=== PATIENT | male | born 1950 | race Caucasian/White ===

== ENCOUNTER 2020-01-06 15:08 | Inpatient (IN) | payer OTHER, MEDICARE, SELFPAY ==
[2019-04-03 10:18] VITALS: BMI 29.9
[2020-01-06 15:09] VITALS: BP 150/93; PULSE 67; RESP 16; TEMP 36.1; O2SAT 97; BMI 30.2
--- NOTE | 2020-01-06 15:33 | CT_ITS ---
STUDY: CT ABDOMEN AND PELVIS WITHOUT CONTRAST REASON FOR EXAM: Male, 69 years old. PAIN THAT STARTED THIS AM, HTN, DB, CAD, HEART CATH RADIATION DOSAGE (If Supplied By Facility): CTDIvol = ( 12.51 ) mGy, DLP = ( 668.76 ) mGycm TECHNIQUE: Transaxial images were obtained from the dome of the diaphragm to the symphysis pubis without oral contrast, and without intravenous contrast. Sagittal and coronal images were reconstructed. Individualized dose optimization techniques were used for this CT. COMPARISON: 07/08/2012. FINDINGS: The visualized lung bases are unremarkable. The visualized portions of the heart are within normal limits. There is decreased attenuation of the liver consistent with steatosis. Normal gallbladder and extrahepatic biliary system. Normal spleen. Normal pancreas. Normal bilateral adrenal glands. Normal right kidney. Normal left kidney. No definite renal or ureteral stones are seen. There is no hydronephrosis on either side. Evaluation of the GI tract is limited because oral contrast was not given. Stomach wall thickening is not excluded. Widespread abnormal loops of small bowel including dilated loops of small bowel primarily involving the ileum and terminal ileum. Widespread small bowel feces, especially in the distal small bowel. This is a nonspecific finding suggests stasis and can be seen in severe ileus or obstruction. Normal caliber large bowel also with moderate diffuse fecal retention. Normal appendix. Normal abdominal aorta. Normal inferior vena cava. Normal retroperitoneum. Normal urinary bladder. There is enlargement of the prostate gland. Normal abdominal wall. There are diffuse degenerative changes of the visualized lumbar spine. CT/Abdomen/Pelvis without Cont IMPRESSION: Abnormal appearance of the small bowel most suggestive of severe ileus or even obstruction. Note that the exam is limited by the absence of oral contrast. No other significant findings. Electronically Signed: Jatinder Hercules MD at 16:28 EST , Service support ,
[2020-01-06] MEDS: Dicyclomine 10 MG Capsule 20 MG PO (15:39)
[2020-01-06 15:53] LABS: Absolute Lymphocyte Count 1.28 X10^3/uL (0.83-4.51); Absolute Neutrophil Count 7.2 X10^3/uL (2.0-7.7); Basophil# 0.01 X10^3/uL; Basophil% 0.1 % (0-1); Eosinophil# 0.01 X10^3/uL; Eosinophils% 0.1 % (0-5); Hematocrit 51.6 % (40-54); Hemoglobin 17.8 g/dL (13.0-16.5); Lymphocyte # 1.28 X10^3/ul (4.0); Lymphocyte % 14.4 % (19-41); Mean Corp Hgb Conc 34.5 g/dL (32-36); Mean Corpuscular Hgb 30.5 pg (27.0-32.0); Mean Corpuscular Volume 88.5 fL (80-94); Mean Platelet Vol. 9.7 fl (6.2-12.0); Monocyte# 0.36 X10^3/uL; Monocyte% 4.1 % (0-10); NRBC Flagged by Analyzer 0 % (0-5); Neutrophil # 7.16 X10^3/uL (2.7-7.7); Neutrophil % 80.8 % (47-70); Platelet Count 155 K/mm3 (150-450); RBC Distribution Width CV 13.1 % (11.6-14.6); RBC Distribution Width SD 42.4 fl (35.1-43.9); Red Blood Count 5.83 M/mm3 (4.6-6.2); White Blood Count 8.9 K/mm3 (4.4-11.0)
--- NOTE | 2020-01-06 15:56 | ED.VIS.GI ---
History of Present Illness Chief Complaint: Abd Pain Narrative: Patient presenting for evaluation secondary to abdominal pain. Patient reports that this morning he woke up and was noting that he was having some generalized abdominal pain. This is a continuous aching type pain that has no exacerbating relieving factors. Patient states that it is not been associated with any sort of fevers nausea vomiting or diarrhea. He reports that initially he thought that it was just a standard stomachache, but it seemed to be something more than that so he presented to the emergency department for further evaluation. Patient denies any prior history of abdominal surgeries. He denies any constipation associated with this. Review of systems otherwise negative. Past Medical History - Allergies and Home Meds Allergies/Adverse Reactions: Allergies fenofibrate [From Tricor] Adverse Reaction (Severe, Verified 01/06/20 15:09) Facial numbness thioridazine [From Mellaril] Adverse Reaction (Severe, Verified 01/06/20 15:09) Tongue swelling Primary Care Physician: [place], [place] [Primary Care Provider] - Past Medical History: - - Hypertension, hyperlipidemia, diabetes, coronary artery disease Smoking Status: Never smoker Review of Systems All systems negative except as indicated General: Denies: Chills, Fever, Sweats Eyes: Denies: Visual changes - bilaterally, Diplopia ENT: Denies: Rhinorrhea, Sore throat Cardiovascular: Denies: Chest pain, Palpitations Respiratory: Denies: Dyspnea, Cough, Dyspnea on exertion Gastrointestinal: Reports: Abdominal pain Genitourinary: Denies: Dysuria, Hematuria, Frequency Musculoskeletal: Denies: Back pain, Extremity Pain Skin: Denies: Rash, Wounds Neurological: Denies: Headache, Weakness, Numbness Physical Exam Vital Signs/Narrative: Vital Signs Temp Pulse Resp BP Pulse Ox 01/06/20 15:09 96.9 F L 67 16 150/93 H 97 Inital Vital Signs reviewed: Yes General: Well nourished, Well developed, No Acute Distress Head: Normocephalic, Atraumatic Eyes: Perrl, EOMI ENT: Moist mucous membranes, No rhinorrhea Neck: Supple, Nontender Cardiovascular: Regular rate, Regular rhythm, No murmurs Respiratory: No distress, CTA bilaterally, Chest nontender Abdomen: Soft, Tender - Diffuse nonlocalizing no guarding or rebound Back: Nontender, Normal Inspection Extremities: Nontender, No edema Skin: Normal color, No rash Neurological: Alert, Oriented x3, Cranial nerves II-XII grossly intact, Normal Strength, Normal Sensation Psychological: Normal affect, Normal Mood Diagnostic/Tx/Re-eval - Medical Decision Making Patient presented secondary to some nonlocalizing abdominal pain. Laboratory studies demonstrated some hemoconcentration with a hemoglobin of 17. CT abdomen and pelvis was performed which showed evidence of ileus versus early small bowel obstruction. Given the patient's age, I believe that he warrants admission for observation. Patient will be admitted under the hospitalist. ED Disposition - Plan for ED Patient: Disposition: Acute Care Hospital [facility] Diagnosis: Ileus [facility]errals: [facility] [Primary Care Provider] -
[2020-01-06 16:14] LABS: ALB/GLOB Ratio 1.1 RATIO (0.9-2.4); AST(SGOT) 24 U/L (15-37); Alanine Aminotransfer ALT/SGPT 60 U/L (16-61); Alkaline Phosphatase 117 U/L (45-117); Anion Gap 9 (5-15); BUN 20 mg/dL (7-18); BUN/Creat Ratio 14.1 RATIO (10-20); Calcium,Total 9.7 mg/dL (8.5-10.1); Chloride 102 mmol/L (98-107); Creatinine, Serum 1.42 mg/dL (0.70-1.30); EST Glomerular Filtration Rate 52 mL/min (>60); Est Glom Filt Rate - Afr Amer 63 mL/min (>60); Estimated Creatinine Clearance 51.56 ml/min; Globulin 3.8 g/dL (2.2-4.2); Glucose 213 mg/dL (74-106); Lipase 50 U/L (73-393); Potassium 5.6 mmol/L (3.5-5.1); Protein, Total 7.8 g/dL (6.4-8.2); Sodium Level 136 mmol/L (136-145)
--- NOTE | 2020-01-06 17:07 | PCM.HP.STD ---
History of Present Illness Date of Admission: 01/06/20 Chief Complaint: abdominal pain The patient is a 69 year old M with a PMH as outlined. He was admitted through the ED on 01/06/2020 with a complaint of abdominal pain which started on day of admission. Pain was cramping, with nausea but no vomiting. He said he was not passing gas but had a bowel movement. Abdominal pain persisted so he decided to come into the ED. He denied any fever or chills, chest pain or palpitations or dizziness or diarrhea. Review of symptoms otherwise negative. He does have any history of intra-abdominal surgery and has never had any small bowel obstruction before. In the ED, vitals were unremarkable her blood pressure was 150/93 with temperature of 96.9. Chemistry showed potassium of 5.6 with creatinine of 1.42. Lipase was 50. CBC was essentially unremarkable. CT of the abdomen and pelvis showed abnormal appearance of the small bowel most suggestive of severe IV resolving obstruction and no other significant findings. He has been admitted to be managed for small bowel obstruction. [] Past Medical History Past Medical History (Chronic Problems): Chronic Problems (Last Reviewed 03/08/18 @ 10:27 by Bob Paulson MD) History of left heart catheterization (Chronic) 06/20/2005 with subsequent PTCA and STANISLAV @ [facility] : Dr. 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) I22.1 Diabetes mellitus (Chronic) E11.9 retirement use of drug (Chronic) Z79.899 Hyperlipidemia (Chronic) E78.5 Allergies fenofibrate [From Tricor] Adverse Reaction (Severe, Verified 01/06/20 15:09) Facial numbness thioridazine [From Mellaril] Adverse Reaction (Severe, Verified 01/06/20 15:09) Tongue swelling Home Medications: Ambulatory Orders Medication Instructions Recorded aspirin 81 mg tablet,delayed 81 mg PO DAILY tab 01/17/18 release atorvastatin 80 mg tablet 40 mg PO QHS 01/17/18 glipizide 10 mg tablet 10 mg PO BID 01/17/18 lisinopril 5 mg tablet 2.5 mg PO DAILY 01/17/18 donepezil 10 mg tablet 10 mg PO DAILY tab 03/05/18 Cholecalciferol (Vitamin D3) 2,000 unit PO DAILY 01/06/20 [Vitamin D3] Empagliflozin [Jardiance] 25 mg PO DAILY 01/06/20 Fluoxetine HCl [Prozac] 40 mg PO DAILY 01/06/20 Insulin Aspart Protam & Aspart 66 unit SQ DAILY@1700 01/06/20 [Novolog Mix 70-30 Vial] Insulin Aspart Protam & Aspart 100 unit SQ DAILY@0800 01/06/20 [Novolog Mix 70-30 Vial] Levothyroxine Sodium [Synthroid] 125 mcg PO DAILY 01/06/20 Melatonin/Pyridoxine HCl (B6) 1 tab PO QHS 01/06/20 [Melatonin 3 mg Tablet] Metoprolol Tartrate 50 mg PO BID 01/06/20 Multivitamin [Multiple Vitamins] 1 tab PO DAILY 01/06/20 Omeprazole 20 mg PO DAILY 01/06/20 Risperidone 2 mg PO QHS 01/06/20 Timolol 0.25% [Timoptic] 1 drp EACH EYE DAILY 01/06/20 Travoprost [Travatan Z] 1 drp EACH EYE QHS 01/06/20 hydrOXYzine pamoate capsule 25 mg PO QHS 01/06/20 [Vistaril pamoate capsule] metFORMIN HCl [Glucophage] 1,000 mg PO BIDCM 01/06/20 traZODone [Desyrel] 200 mg PO QHS 01/06/20 Surgical History: Surgical History (Last Reviewed 03/08/18 @ 10:27 by Bob Paulson MD) History of left heart catheterization (Chronic) Z98.890 06/20/2005 with subsequent PTCA and STANISLAV @ [facility] : Dr. Herrera History of percutaneous transluminal coronary angioplasty Z98.61 PTCA & stent placement in posterior descending branch of RCA, using STANISLAV Surgical History: - - vasectomy Psychiatric History: No pertinent psych hx Lives: Spouse/ Significant Other Smoking Status: Never smoker Alcohol: None Drugs: None - *Family History Maternal Family History: Family History (Last Reviewed 03/08/18 @ 10:27 by Bob Paulson MD) Mother Diabetes Brother CAD (coronary artery disease) Sudden cardiac Myocardial infarction Brother CAD (coronary artery disease) Father No problems noted. Other Family history of coronary artery disease Review of Systems Constitutional: Denies: Chills, Fever, Malaise, Weakness, Weight Change Eyes: Denies: Blurred vision HEENT: Denies: Head Aches, Sinus Congestion, Sinus Drainage Cardiovascular: Denies: Chest Pain, Palpitations Respiratory: Denies: Cough, Shortness of Breath, Shortness of breath at rest, Shortness of breath upon exertion, Sputum production Gastrointestinal: Reports: Abdominal Pain, Nausea. Denies: Diarrhea, Vomiting Genitourinary: Denies: Dysuria Musculoskeletal: Denies: Joint Pain, Joint Tenderness Skin: Denies: Rash, Wounds Neurological: Denies: Numbness, Tingling, Focal weakness Psychiatric: Denies: Anxiety, Depression, Homicidal Ideations, Suicidal Ideations Hematologic/ Lymphatic: Denies: Easy Bruising, Easy Bleeding VTE Information - Inpt Only VTE Present on Admission: No VTE Pharm Prophylaxis ordered?: Yes Patient Problems: Active and Suspected Problems (Last Reviewed 03/08/18 @ 10:27 by Bob Paulson MD) Ileus (Acute) - Physical Exam Vitals/I&O's: Vital Signs Temp Pulse Resp BP Pulse Ox 96.9 F L 67 16 150/93 H 97 01/06/20 15:09 01/06/20 15:09 01/06/20 15:09 01/06/20 15:09 01/06/20 15:09 Weight: 216 lb 12.8 oz Body Mass Index (BMI) 30.2 General: Alert, Oriented x3, Cooperative, No apparent distress HEENT: Atraumatic, PERRLA, EOMI, Normocephalic Oral: Moist Mucosa Neck: Supple, No JVD, Negative Carotid Bruits Lungs: Clear to auscultation, Normal air movement, No rhonchi, No wheeze, No rales Cardiovascular: Regular rate, Regular Rhythm, Normal S1, Normal S2, No murmurs Abdomen: Bowel Sounds Present, Soft, Non Tender, No Hepato-splenomegaly, - - mild abdominal distension Extremities: No clubbing, No cyanosis, No edema, Capillary Refill Less than 3 Seconds Skin: No rashes, No breakdown Musculoskeletal: No Tenderness to Palpation of Joints or Extremities Lymphatic: No Cervical, Supraclavicular, or Inguinal Adenopathy Neurological: Cranial nerves II-XII grossly intact, Neuro grossly intact, Motor Exam 5/5 strength throughout Psych/Mental Status: Normal Affect, Appropriate, Alert and oriented to time, place, person, mood and affect Laboratory Results 01/06/20 15:45: WBC 8.9, RBC 5.83, Hgb 17.8 H, Hct 51.6, MCV 88.5, MCH 30.5, MCHC 34.5, RDW Std Deviation 42.4, RDW Coeff of Indra 13.1, Plt Count 155, MPV 9.7, Immature Gran % (Auto) 0.500, Neut % (Auto) 80.8 H, Lymph % (Auto) 14.4 L, [place] % (Auto) 4.1, Eos % (Auto) 0.1, Baso % (Auto) 0.1, Absolute Neuts (auto) 7.2, Absolute Lymphs (auto) 1.28, Nucleated RBC % 0 01/06/20 15:45: Sodium 136, Potassium 5.6 H, Chloride 102, Carbon Dioxide 25.0, Anion Gap 9, BUN 20 H, Creatinine 1.42 H, Estim Creat Clear Calc 51.56, Est GFR (MDRD) Af Amer 63, Est GFR (MDRD) Non-Af 52 L, BUN/Creatinine Ratio 14.1, Glucose 213 H, Calcium 9.7, Total Bilirubin 0.70, AST 24, ALT 60, Alkaline Phosphatase 117, Total Protein 7.8, Albumin 4.0, Globulin 3.8, Albumin/Globulin Ratio 1.1, Lipase 50 L Diagnostic Data Abdomen/Pelvis CT 01/06/20 15:33 IMPRESSION: Abnormal appearance of the small bowel most suggestive of severe ileus or even obstruction. Note that the exam is limited by the absence of oral contrast. No other significant findings. Electronically Signed: Jatinder Hercules MD at 16:28 EST , Service support , Assessment/Plan All Active Problems (Last Reviewed 03/08/18 @ 10:27 by Bob Paulson MD) Ileus (Acute) Chest pain, precordial (Acute) Family history of coronary artery disease (Acute) 69-year-old male admitted with a complaint of abdominal pain. 1. Small bowel obstruction Etiology of small bowel obstruction is not clear as he has not had any intra-abdominal surgery before to make adhesions a possible cause. He is also not had any antecedent diarrhea or any infection. CT of the abdomen and pelvis showed abdominal Bradley of the small bowel suggestive of severe IBS or even obstruction but exam was limited by absence of oral contrast. He had a colonoscopy done at the [facility] a few years ago and states a few polyps were removed but he was told they were noncancerous. Admit to [facility] with telemetry. Keep n.p.o. for now. Patient is currently stable and asymptomatic so no NG tube will be passed now. Hydrate gently with IV fluid normal saline. Consult general surgery. 2. Hyperkalemia: Potassium is 5.6. Will give sodium Kayexalate. Lisinopril. 4. Type 2 diabetes mellitus: Hold empagliflozin and glipizide as well as insulin. Insulin sliding scale. Accu-Cheks AC at bedtime. 5. CAD s/p stents: On aspirin and statin. 6. Hypothyroidism: On Synthroid. VT prophylaxis: Lovenox CODE STATUS: Full code Patient and counseled extensively about different types of CODE STATUS including full code, DNR CCA and DNR CCA. Patient elects to be full code. Total [id number] time 16 minutes. Code Visit OBSV E&M: 31019 Initial observation care L3 Procedures: 42711 Advncd Care Plan 30 Min
[2020-01-06 17:47] VITALS: BP 148/88; PULSE 92; RESP 18; O2SAT 97
[2020-01-06 19:08] VITALS: BP 126/69; PULSE 75; RESP 16; TEMP 36.6; O2SAT 97; BMI 29.5
[2020-01-06 19:32] VITALS: PULSE 74
[2020-01-06 19:39] VITALS: BMI 29.6
[2020-01-06 19:41] LABS: Bedside Glucose 205 mg/dL (70-110)
[2020-01-06] MEDS: 0.9% Normal Saline 1,000 ML 125 ML IV (20:07)
[2020-01-06] MEDS: Insulin Lispro 100 UNIT/ML INSULN.PEN SC ×2 (20:07→23:27)
[2020-01-06] MEDS: Sodium Polystyrene Sulfonate 15 GM/60 ML UDC 30 GM RECTAL (22:00)
[2020-01-06 23:08] VITALS: PULSE 88
[2020-01-06] MEDS: Latanoprost 0.005% 1 Bottle 1 DRP EACH EYE (23:22)
[2020-01-06] MEDS: 0.9% Saline Lock 10 ML Syringe IV (23:28)
[2020-01-06 23:31] VITALS: BP 134/60; PULSE 75; RESP 16; TEMP 37.1; O2SAT 95
[2020-01-06 23:35] LABS: Bedside Glucose 168 mg/dL (70-110)
[2020-01-07] VITALS (11 sets, daily range): BP systolic 118–145; BP diastolic 67–81; PULSE 71–94; RESP 16–20; TEMP 36.2–36.9; O2SAT 94–95
--- NOTE | 2020-01-07 00:26 | NURSING ---
followed procedure for administering rectal kayexalate. pt had large, watery stool results after first enema and again after 2nd enema that was used after kayexalate was administered through 26 croatian catheter. was given approx 1,000 ml warm water in each one. pt tolerated well.
[2020-01-07] MEDS: 0.9% Normal Saline 1,000 ML 125 ML IV (04:45)
[2020-01-07] MEDS: Enoxaparin 40 MG/0.4 ML Syringe SC (04:59)
[2020-01-07] MEDS: Insulin Lispro 100 UNIT/ML INSULN.PEN SC ×4 (05:05→21:27)
[2020-01-07 05:16] LABS: Bedside Glucose 204 mg/dL (70-110)
--- NOTE | 2020-01-07 05:55 | RAD_ITS ---
STUDY: X-RAY - ABDOMEN/PELVIS REASON FOR EXAM: Male, 69 years old. SMALL BOWEL OBSTRUCTION TECHNIQUE: Two AP supine views of the abdomen and pelvis. COMPARISON: CT scan abdomen and pelvis 01/06/2020. FINDINGS: Normal visualized lung bases. There is some persistent prominence of gas in small bowel loops, with substantial interval improvement from previous study. There is no demonstrated free abdominal air. The visualized liver, spleen and kidneys are grossly normal in size and morphology. Normal soft tissue structures. Normal visualized osseous structures. RAD/Abdomen Single View (Portable) IMPRESSION: Mild prominence of small bowel gas, with substantial improvement from previous study. Electronically Signed: Latrell Mary MD at 7:57 EST , Service support ,
[2020-01-07 05:59] LABS: Absolute Lymphocyte Count 2.58 X10^3/uL (0.83-4.51); Absolute Neutrophil Count 5.6 X10^3/uL (2.0-7.7); Basophil# 0.03 X10^3/uL; Basophil% 0.3 % (0-1); Eosinophil# 0.04 X10^3/uL; Eosinophils% 0.4 % (0-5); Hematocrit 46.3 % (40-54); Lymphocyte # 2.58 X10^3/ul (4.0); Lymphocyte % 28.6 % (19-41); Mean Corp Hgb Conc 34.6 g/dL (32-36); Mean Corpuscular Hgb 30.6 pg (27.0-32.0); Mean Corpuscular Volume 88.5 fL (80-94); Mean Platelet Vol. 9.8 fl (6.2-12.0); Monocyte# 0.76 X10^3/uL; Monocyte% 8.4 % (0-10); NRBC Flagged by Analyzer 0 % (0-5); Neutrophil # 5.58 X10^3/uL (2.7-7.7); Platelet Count 147 K/mm3 (150-450); RBC Distribution Width CV 13.2 % (11.6-14.6); RBC Distribution Width SD 42.7 fl (35.1-43.9); Red Blood Count 5.23 M/mm3 (4.6-6.2)
[2020-01-07 06:21] LABS: Anion Gap 6 (5-15); BUN 22 mg/dL (7-18); BUN/Creat Ratio 18.5 RATIO (10-20); Calcium,Total 8.4 mg/dL (8.5-10.1); Chloride 105 mmol/L (98-107); Creatinine, Serum 1.19 mg/dL (0.70-1.30); EST Glomerular Filtration Rate 64 mL/min (>60); Est Glom Filt Rate - Afr Amer 78 mL/min (>60); Estimated Creatinine Clearance 61.52 ml/min; Glucose 182 mg/dL (74-106); Sodium Level 135 mmol/L (136-145)
--- NOTE | 2020-01-07 07:03 | CON.PCM_ITS ---
Reason for Consult Date of Consultation: 01/07/20 History of Present Illness: The patient is a 69 year old M presented to the ER due to abd pain-generalized starting yesterday. Pt did get enemas overnight +flatus/BM. Pt currently denies abd pain/n/v. Pt has never had abd pain like this in hx, no hx of abd surgery. CT a/p showed some fecalization of SB but also gas and stool in colon. Past Medical History Past Medical History (Chronic Problems): Chronic Problems (Last Reviewed 03/08/18 @ 10:27 by Bob Paulson MD) History of left heart catheterization (Chronic) 06/20/2005 with subsequent PTCA and STANISLAV @ [facility] : Dr. 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) Hyperlipidemia (Chronic) Medical History: Medical History (Last Reviewed 03/08/18 @ 10:27 by Bob Paulson MD) Atherosclerotic heart disease of [place] coronary artery without angina pectoris (Chronic) I25.10 Hypertension (Chronic) I10 Subsequent myocardial infarction of inferior wall within 4 weeks of initial in farction (Chronic) I22.1 Diabetes mellitus (Chronic) 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) Z79.899 Hyperlipidemia (Chronic) E78.5 Allergies fenofibrate [From Tricor] Adverse Reaction (Verified 01/06/20 19:38) facial movements thioridazine [From Mellaril] Adverse Reaction (Verified 01/06/20 19:38) facial movements Home Medications: Ambulatory Orders Medication Instructions Recorded aspirin 81 mg tablet,delayed 81 mg PO DAILY tab 01/17/18 release atorvastatin 80 mg tablet 40 mg PO QHS 01/17/18 glipizide 10 mg tablet 10 mg PO BID 01/17/18 lisinopril 5 mg tablet 2.5 mg PO DAILY 01/17/18 donepezil 10 mg tablet 10 mg PO DAILY tab 03/05/18 Cholecalciferol (Vitamin D3) 2,000 unit PO DAILY 01/06/20 [Vitamin D3] Empagliflozin [Jardiance] 25 mg PO DAILY 01/06/20 Fluoxetine HCl [Prozac] 40 mg PO DAILY 01/06/20 Insulin Aspart Protam & Aspart 66 unit SQ DAILY@1700 01/06/20 [Novolog Mix 70-30 Vial] Insulin Aspart Protam & Aspart 100 unit SQ DAILY@0800 01/06/20 [Novolog Mix 70-30 Vial] Levothyroxine Sodium [Synthroid] 125 mcg PO DAILY 01/06/20 Melatonin/Pyridoxine HCl (B6) 1 tab PO QHS 01/06/20 [Melatonin 3 mg Tablet] Metoprolol Tartrate 50 mg PO BID 01/06/20 Multivitamin [Multiple Vitamins] 1 tab PO DAILY 01/06/20 Omeprazole 20 mg PO DAILY 01/06/20 Risperidone 2 mg PO QHS 01/06/20 Timolol 0.25% [Timoptic] 1 drp EACH EYE DAILY 01/06/20 Travoprost [Travatan Z] 1 drp EACH EYE QHS 01/06/20 hydrOXYzine pamoate capsule 25 mg PO QHS 01/06/20 [Vistaril pamoate capsule] traZODone [Desyrel] 200 mg PO QHS 01/06/20 metFORMIN HCl [Glucophage] 500 mg PO BIDCM #0 01/08/20 Surgical History: Surgical History (Last Reviewed 03/08/18 @ 10:27 by Bob Paulson MD) History of left heart catheterization (Chronic) Z98.890 06/20/2005 with subsequent PTCA and STANISLAV @ [facility] : Dr. Herrera History of percutaneous transluminal coronary angioplasty Z98.61 PTCA & stent placement in posterior descending branch of RCA, using STANISLAV Surgical History: - - vasectomy Psychiatric History: No pertinent psych hx Lives: Spouse/ Significant Other Smoking Status: Former smoker Tobacco Use: Cigarettes Alcohol: None Drugs: None - *Family History Maternal Family History: Family History (Last Reviewed 03/08/18 @ 10:27 by Bob Paulson MD) Mother Diabetes Brother CAD (coronary artery disease) Sudden cardiac Myocardial infarction Brother CAD (coronary artery disease) Father No problems noted. Other Family history of coronary artery disease Review of Systems Constitutional: Denies: Anorexia, Fever Eyes: Denies: Blurred vision HEENT: Denies: Difficulty Swallowing Cardiovascular: Denies: Chest Pain Gastrointestinal: Denies: Abdominal Pain, Constipation, Nausea Genitourinary: Denies: Dysuria Skin: Denies: Rash Neurological: Denies: Balance problems Psychiatric: Denies: Depression Hematologic/ Lymphatic: Denies: Easy Bleeding - Physical Exam Vitals/I&O's: Vital Signs Temp Pulse Resp BP Pulse Ox 98.4 F 78 16 124/67 H 95 01/07/20 04:57 01/07/20 04:57 01/07/20 04:57 01/07/20 04:57 01/07/20 04:57 Oxygen Delivery Method Room Air Weight: 212 lb Body Mass Index (BMI) 29.5 Intake and Output for Last 24 Hours 01/05/20 01/06/20 01/07/20 23:59 23:59 23:59 Intake Total 1000 / 1000 Output Total 300 / 300 Balance 700 / 700 General: Alert, Oriented x3, Cooperative, No apparent distress HEENT: Atraumatic Lungs: Normal air movement Cardiovascular: Regular rate Abdomen: Soft, Non Tender, Non-Distended Extremities: No clubbing, No cyanosis, No edema Neurological: Cranial nerves II-XII grossly intact Psych/Mental Status: Normal Affect Laboratory Results 01/06/20 15:45: WBC 8.9, RBC 5.83, Hgb 17.8 H, Hct 51.6, MCV 88.5, MCH 30.5, MCHC 34.5, RDW Std Deviation 42.4, RDW Coeff of Indra 13.1, Plt Count 155, MPV 9.7, Immature Gran % (Auto) 0.500, Neut % (Auto) 80.8 H, Lymph % (Auto) 14.4 L, Towns % (Auto) 4.1, Eos % (Auto) 0.1, Baso % (Auto) 0.1, Absolute Neuts (auto) 7.2, Absolute Lymphs (auto) 1.28, Nucleated RBC % 0 01/06/20 15:45: Sodium 136, Potassium 5.6 H, Chloride 102, Carbon Dioxide 25.0, Anion Gap 9, BUN 20 H, Creatinine 1.42 H, Estim Creat Clear Calc 51.56, Est GFR (MDRD) Af Amer 63, Est GFR (MDRD) Non-Af 52 L, BUN/Creatinine Ratio 14.1, Glucose 213 H, Calcium 9.7, Total Bilirubin 0.70, AST 24, ALT 60, Alkaline Phosphatase 117, Total Protein 7.8, Albumin 4.0, Globulin 3.8, Albumin/Globulin Ratio 1.1, Lipase 50 L 01/06/20 19:31: POC Glucose 205 H 01/06/20 23:27: POC Glucose 168 H 01/07/20 05:05: POC Glucose 204 H 01/07/20 05:32: Sodium 135 L, Potassium 4.0, Chloride 105, Carbon Dioxide 24.0, Anion Gap 6, BUN 22 H, Creatinine 1.19, Estim Creat Clear Calc 61.52, Est GFR (MDRD) Af Amer 78, Est GFR (MDRD) Non-Af 64, BUN/Creatinine Ratio 18.5, Glucose 182 H, Calcium 8.4 L 01/07/20 05:32: WBC 9.0, RBC 5.23, Hgb 16.0, Hct 46.3, MCV 88.5, MCH 30.6, MCHC 34.6, RDW Std Deviation 42.7, RDW Coeff of Indra 13.2, Plt Count 147 L, MPV 9.8, Immature Gran % (Auto) 0.300, Neut % (Auto) 62.0, Lymph % (Auto) 28.6, Towns % (Auto) 8.4, Eos % (Auto) 0.4, Baso % (Auto) 0.3, Absolute Neuts (auto) 5.6, Absolute Lymphs (auto) 2.58, Nucleated RBC % 0 Current Medications Enoxaparin Sodium (Lovenox) 40 mg SC DAILY@0600 [facility] Last Admin: 01/07/20 04:59 Dose: 40 mg Documented by: Glucagon () 1 mg IM .X1 PRN PRN Reason: Hypoglycemia Sodium Chloride () 1,000 mls @ 125 mls/hr IV .Q8H [facility] Stop: 01/07/20 11:02 Last Admin: 01/07/20 04:45 Dose: 125 mls/hr Documented by: Sodium Chloride () 250 mls @ 15 mls/hr IV .[id number] PRN PRN Reason: Saline Flush Dextrose (Dextrose 10%-Water) 250 mls @ 999 mls/hr IV .Q16M PRN; Protocol PRN Reason: HYPOGLYCEMIA Insulin Human Lispro (Humalog Kwikpen (Bkc)) 0 unit SC Q6 [facility]; Protocol Last Admin: 01/07/20 05:05 Dose: 2 u Documented by: Latanoprost (Xalatan Opthalmic) 1 drop EACH EYE QHS [facility] Last Admin: 01/06/20 23:22 Dose: 1 drop Documented by: Morphine Sulfate () 2 mg IV Q3H PRN PRN PRN Reason: Pain Score 6-10/10 Ondansetron HCl (Zofran) 4 mg IV Q8H PRN PRN PRN Reason: NAUSEA/VOMITING Sodium Chloride () 10 - 40 ml IV UD PRN PRN Reason: SALINE FLUSH Last Admin: 01/06/20 23:28 Dose: 10 ml Documented by: Assessment/Plan All Active Problems (Last Reviewed 03/08/18 @ 10:27 by Bob Paulson MD) Ileus (Acute) Chest pain, precordial (Acute) Family history of coronary artery disease (Acute) 69-year-old male with possible ileus versus small bowel obstruction 1. N.p.o./IV fluids 2. CT abdomen pelvis did have fecalization of most of the small bowel question ileus versus small bowel obstruction, patient potassium did improve with the Kayexalate to 4 from his 5.6. Patient did have bowel movements with enemas overnight. Currently patient denies any abdominal pain nausea or vomiting. Will check small bowel follow-through with Gastrografin as this can also be therapeutic. Patient has never had abdominal surgery states he had a colonoscopy a couple years ago which was negative. Addendum: Small bowel follow-through showed contrast in the colon at 30 minutes patient's had additional bowel function. Okay for a regular diabetic diet and if patient tolerates okay to DC home per surgery standpoint. Fina Marcos M.D. Pager: [phone] [facility] [address] [place] [address], [facility], [address] [place] [address] Office: [phone] Code Visit Inpatient E&M: 51054 Init Hosp L2 Multi Select Codes - Visit Charges Visit Charges: 32596 Init Hosp L2
--- NOTE | 2020-01-07 07:29 | PN_ITS ---
Patient Problems: Active and Suspected Problems (Last Reviewed 03/08/18 @ 10:27 by Bob Paulson MD) Ileus (Acute) Reason for Visit: Abdominal pain. Small bowel ileus Objective: Patient abdominal pain has much improved. Has not passed gas but had bowel movement. Abdominal bloating started diffuse with no exacerbating or relieving factor. No intra-abdominal/intrapelvic surgery. Vitals/I&O's: Vital Signs Temp Pulse Resp BP Pulse Ox 98.4 F 78 16 124/67 H 95 01/07/20 04:57 01/07/20 04:57 01/07/20 04:57 01/07/20 04:57 01/07/20 04:57 Oxygen Delivery Method Room Air Weight: 212 lb Body Mass Index (BMI) 29.5 Intake and Output for Last 24 Hours 01/05/20 01/06/20 01/07/20 23:59 23:59 23:59 Intake Total 1000 / 1000 Output Total 300 / 300 Balance 700 / 700 General: Alert, Oriented x3, Cooperative HEENT: Atraumatic, PERRLA, EOMI, Normocephalic Neck: Supple, No JVD, Negative Carotid Bruits Lungs: Clear to auscultation, Normal air movement, No rhonchi, No wheeze, No rales Cardiovascular: Regular rate, Regular Rhythm, Normal S1, Normal S2, No murmurs Abdomen: Soft, Non Tender, Non-Distended, Hypoactive Bowel Sounds Extremities: No edema, Capillary Refill Less than 3 Seconds Skin: No rashes, No breakdown Musculoskeletal: No Tenderness to Palpation of Joints or Extremities, Arthritic Changes Neurological: Cranial nerves II-XII grossly intact Psych/Mental Status: Normal Affect, Appropriate Laboratory Results 01/06/20 15:45: WBC 8.9, RBC 5.83, Hgb 17.8 H, Hct 51.6, MCV 88.5, MCH 30.5, MCHC 34.5, RDW Std Deviation 42.4, RDW Coeff of Indra 13.1, Plt Count 155, MPV 9.7, Immature Gran % (Auto) 0.500, Neut % (Auto) 80.8 H, Lymph % (Auto) 14.4 L, Merrick % (Auto) 4.1, Eos % (Auto) 0.1, Baso % (Auto) 0.1, Absolute Neuts (auto) 7.2, Absolute Lymphs (auto) 1.28, Nucleated RBC % 0 01/06/20 15:45: Sodium 136, Potassium 5.6 H, Chloride 102, Carbon Dioxide 25.0, Anion Gap 9, BUN 20 H, Creatinine 1.42 H, Estim Creat Clear Calc 51.56, Est GFR (MDRD) Af Amer 63, Est GFR (MDRD) Non-Af 52 L, BUN/Creatinine Ratio 14.1, Glucose 213 H, Calcium 9.7, Total Bilirubin 0.70, AST 24, ALT 60, Alkaline Phosphatase 117, Total Protein 7.8, Albumin 4.0, Globulin 3.8, Albumin/Globulin Ratio 1.1, Lipase 50 L 01/06/20 19:31: POC Glucose 205 H 01/06/20 23:27: POC Glucose 168 H 01/07/20 05:05: POC Glucose 204 H 01/07/20 05:32: Sodium 135 L, Potassium 4.0, Chloride 105, Carbon Dioxide 24.0, Anion Gap 6, BUN 22 H, Creatinine 1.19, Estim Creat Clear Calc 61.52, Est GFR (MDRD) Af Amer 78, Est GFR (MDRD) Non-Af 64, BUN/Creatinine Ratio 18.5, Glucose 182 H, Calcium 8.4 L 01/07/20 05:32: WBC 9.0, RBC 5.23, Hgb 16.0, Hct 46.3, MCV 88.5, MCH 30.6, MCHC 34.6, RDW Std Deviation 42.7, RDW Coeff of Indra 13.2, Plt Count 147 L, MPV 9.8, Immature Gran % (Auto) 0.300, Neut % (Auto) 62.0, Lymph % (Auto) 28.6, Merrick % (Auto) 8.4, Eos % (Auto) 0.4, Baso % (Auto) 0.3, Absolute Neuts (auto) 5.6, Absolute Lymphs (auto) 2.58, Nucleated RBC % 0 Current Medications Enoxaparin Sodium (Lovenox) 40 mg SC DAILY@0600 [facility] Last Admin: 01/07/20 04:59 Dose: 40 mg Documented by: Glucagon () 1 mg IM .X1 PRN PRN Reason: Hypoglycemia Sodium Chloride () 1,000 mls @ 125 mls/hr IV .Q8H [facility] Stop: 01/07/20 11:02 Last Admin: 01/07/20 04:45 Dose: 125 mls/hr Documented by: Sodium Chloride () 250 mls @ 15 mls/hr IV .[id number] PRN PRN Reason: Saline Flush Dextrose (Dextrose 10%-Water) 250 mls @ 999 mls/hr IV .Q16M PRN; Protocol PRN Reason: HYPOGLYCEMIA Insulin Human Lispro (Humalog Kwikpen (Bkc)) 0 unit SC Q6 [facility]; Protocol Last Admin: 01/07/20 05:05 Dose: 2 u Documented by: Latanoprost (Xalatan Opthalmic) 1 drop EACH EYE QHS [facility] Last Admin: 01/06/20 23:22 Dose: 1 drop Documented by: Morphine Sulfate () 2 mg IV Q3H PRN PRN PRN Reason: Pain Score 6-10/10 Ondansetron HCl (Zofran) 4 mg IV Q8H PRN PRN PRN Reason: NAUSEA/VOMITING Sodium Chloride () 10 - 40 ml IV UD PRN PRN Reason: SALINE FLUSH Last Admin: 01/06/20 23:28 Dose: 10 ml Documented by: STROKE Vital Signs/Narrative: Vital Signs Temp Pulse Resp BP Pulse Ox 01/07/20 04:57 98.4 F 78 16 124/67 H 95 Medical Necessity - Tobacco Use Smoking Status: Former smoker Tobacco Use: Cigarettes Assessment/Plan All Active Problems (Last Reviewed 03/08/18 @ 10:27 by Bob Paulson MD) Ileus (Acute) Chest pain, precordial (Acute) Family history of coronary artery disease (Acute) 69-year-old male admitted with a complaint of abdominal pain and constipation. Patient is being admitted in [facility] floor. 1. Small bowel obstruction * Etiology of small bowel obstruction, most probably fecal retention/slow bowel transit. Had bowel movement with enema last night. * CT of the abdomen and pelvis without contrast individually reviewed and shows dilated loops of small bowel involving ileum along with the small bowel feces and gas. Overall, differential diagnosis is severe ileus or early obstruction. Large bowel shows moderate diffuse fecal retention. * He had a colon[facility] done at the [facility] a few years ago and states a few polyps were removed but he was told they were noncancerous. * N.p.o. No nausea or vomiting therefore does not need NG tube. On IV fluid. Discussed with surgeon. On conservative management. * Keep n.p.o. for now. Patient is currently stable and asymptomatic so no NG tube will be passed now. Hydrate gently with IV fluid normal saline. 2. Hyperkalemia with mild acute kidney injury: Potassium is 5.6. Potassium corrected with Kayexalate. Repeat K4.0. Admitting BUN/creatinine 20/1.42, improved to 22/1.19. 4. Type 2 diabetes mellitus: Hold empagliflozin and glipizide as well as insulin. Insulin sliding scale. 5. CAD s/p stents: On aspirin and statin. 6. Hypothyroidism: On Synthroid. DVT prophylaxis: Lovenox Code Visit Inpatient E&M: 12337 Subs Hosp L2
[2020-01-07] MEDS: 0.9% Saline Lock 10 ML Syringe IV ×3 (09:46→13:44)
--- NOTE | 2020-01-07 10:00 | RAD_ITS ---
STUDY: GASTROGRAFIN SMALL BOWEL FOLLOW-THROUGH EXAMINATION. REASON FOR EXAM: Male, 69 years old. POSSIBLE SBO: -- GASTROGRAFIN TECHNIQUE: The patient ingested Gastrografin. A director video film was obtained. The small bowel follow-through examination was then obtained. COMPARISON: Comparison is made with prior examination dated January 07, 2020. FINDINGS: On the director video film, a small amount of gas is seen within nondilated small bowel loops. Air is seen within the colon. The small bowel loops are not distended at this time. Contrast is seen within the right hemicolon at 30 minutes. RAD/Small Bowel Series Only IMPRESSION: No evidence of small bowel obstruction. Electronically Signed: Maxx Bradford, at 12:41 EST , Service support ,
--- NOTE | 2020-01-07 11:40 | CASEMGMT ---
RN CM Note: attempted to complete RN CM assessment. Pt unable to participate at this time. Attempted to call , no answer at home phone. Valentin SMITHN RN ACM
[2020-01-07 12:15] LABS: Bedside Glucose 217 mg/dL (70-110)
--- NOTE | 2020-01-07 12:19 | NURSING ---
Student documentation reviewed.
--- NOTE | 2020-01-07 13:19 | CASEMGMT ---
Addendum entered by Sunil Ozuna 01/07/20 13:51: Dr. Vincent updated that pt would like [facility] transfer and information was given to [facility]. No notification yet on bed availability. Original Note: RN CM Assessment Note Presentation: SBO Intro role of CM and purpose of RN CM assessment to patient and his . Demographics, PCP and Pharmacy verified. discussed VA benefits and transferring to [facility], or staying @ [facility]. Pt would like to transfer, and pt's is also agreeable. Call to [facility], notified of admission. Clinical information faxed with pt's permission. PCP: [facility], [facility] Specialists: Dr. Marcos Preferred Pharmacy: [facility] [place] Insurance: [facility] Benefits; [facility] Prescription Benefit: yes LNOK: , Delmi Ureña Living Arrangements: Lives with in 2 story home with first floor set up. Pt does not use DME, and pt is independent @ home with ADL's. Transportation: drives DME: no DME at home per pt and . Patient DC goals: pt requests to transfer to [facility] DC PLAN: Transfer to [facility] when bed available. PT/OT evaluations pending. Valentin COLE RN ACM
--- NOTE | 2020-01-07 14:18 | CHAPLAIN ---
Type of Pastoral Visit _x__ Initial Visit ___ Follow-up Visit ___ On-call Visit ___ General Patient Visit ___ Spiritual Assessment ___ Family Conference ___ Bereavement ___ Rapid Response ___ Code Blue ___ Other (describe below) Pastoral Care Referral From _x__ Patient ___ Family ___ Nurse ___ Physician ___ Net Technical Architect ___ Mail Inserter ___ Other (describe below) Sacrament/Intervention _x__ Active listening ___ Anointing ___ Hoahaoism ___ Bereavement ___ Communion ___ Eileen exploration ___ ___ Life review _x__ Prayer ___ Reconciliation ___ Sacrament of Sick _x__ Supportive presence ___ Wedding ___ Other (describe below) Pastoral Comments
[2020-01-07 17:15] LABS: Bedside Glucose 259 mg/dL (70-110)
[2020-01-07] MEDS: Latanoprost 0.005% 1 Bottle 1 DRP EACH EYE (21:26)
[2020-01-07 21:40] LABS: Bedside Glucose 238 mg/dL (70-110)
[2020-01-08 00:01] VITALS: PULSE 77
[2020-01-08 03:55] VITALS: BP 140/76; PULSE 77; RESP 16; TEMP 36.8; O2SAT 95
[2020-01-08 04:02] VITALS: PULSE 77
[2020-01-08 05:35] LABS: Absolute Lymphocyte Count 1.93 X10^3/uL (0.83-4.51); Absolute Neutrophil Count 4.4 X10^3/uL (2.0-7.7); Basophil# 0.02 X10^3/uL; Basophil% 0.3 % (0-1); Eosinophil# 0.09 X10^3/uL; Eosinophils% 1.3 % (0-5); Hematocrit 48.2 % (40-54); Hemoglobin 16.2 g/dL (13.0-16.5); Lymphocyte # 1.93 X10^3/ul (4.0); Lymphocyte % 27.4 % (19-41); Mean Corp Hgb Conc 33.6 g/dL (32-36); Mean Corpuscular Hgb 29.8 pg (27.0-32.0); Mean Corpuscular Volume 88.6 fL (80-94); Mean Platelet Vol. 9.4 fl (6.2-12.0); Monocyte# 0.63 X10^3/uL; Monocyte% 8.9 % (0-10); NRBC Flagged by Analyzer 0 % (0-5); Neutrophil # 4.36 X10^3/uL (2.7-7.7); Neutrophil % 61.8 % (47-70); Platelet Count 141 K/mm3 (150-450); RBC Distribution Width CV 13.4 % (11.6-14.6); RBC Distribution Width SD 43.3 fl (35.1-43.9); Red Blood Count 5.44 M/mm3 (4.6-6.2); White Blood Count 7.1 K/mm3 (4.4-11.0)
[2020-01-08 05:54] LABS: Anion Gap 6 (5-15); BUN 21 mg/dL (7-18); BUN/Creat Ratio 18.1 RATIO (10-20); Calcium,Total 8.5 mg/dL (8.5-10.1); Chloride 105 mmol/L (98-107); Creatinine, Serum 1.16 mg/dL (0.70-1.30); EST Glomerular Filtration Rate 66 mL/min (>60); Est Glom Filt Rate - Afr Amer 80 mL/min (>60); Estimated Creatinine Clearance 63.11 ml/min; Glucose 212 mg/dL (74-106); Potassium 4.1 mmol/L (3.5-5.1); Sodium Level 135 mmol/L (136-145)
[2020-01-08] MEDS: Enoxaparin 40 MG/0.4 ML Syringe SC (06:27)
[2020-01-08] MEDS: Insulin Lispro 100 UNIT/ML INSULN.PEN SC (06:30)
[2020-01-08 06:36] LABS: Bedside Glucose 216 mg/dL (70-110)
--- NOTE | 2020-01-08 07:29 | DCINST_ITS ---
- Discharge Diagnoses Current Active Problems: Current Active and Chronic Problems (Last Reviewed 03/08/18 @ 10:27 by Bob Paulson MD) Ileus (Acute) You will use the following diet at home:: Calorie/Carbohydrate Controlled (specify 1200, 1400, etc) - carb controlled diet, Cardiac Your food should be the consistency of: Regular Discharge Activity: May Not Drive - follow up PCP Weight Bearing Status: Weight bearing as tolerated Call your doctor if you observe: Fever of 101 or Higher, Coldness, Increased Pain, Numbness or Tingling, Change in Color, Inability to urinate, Inability to have a bowel movement, Shortness of breath, Dizziness, Fainting spells, Swelling in the ankles, Chest pain, Increased palpitations (irregular heartbeat), Calf discomfort, Uncontrolled pain Allergies/Adverse Reactions: Allergies fenofibrate [From Tricor] Adverse Reaction (Verified 01/06/20 19:38) facial movements thioridazine [From Mellaril] Adverse Reaction (Verified 01/06/20 19:38) facial movements Medications to take at Discharge aspirin 81 mg tablet,delayed release 81 mg PO DAILY tab 01/17/18 atorvastatin 80 mg tablet 40 mg PO QHS 01/17/18 glipizide 10 mg tablet 10 mg PO BID 01/17/18 lisinopril 5 mg tablet 2.5 mg PO DAILY 01/17/18 donepezil 10 mg tablet 10 mg PO DAILY tab 03/05/18 Cholecalciferol (Vitamin D3) [Vitamin D3] 2,000 unit PO DAILY 01/06/20 Empagliflozin [Jardiance] 25 mg PO DAILY 01/06/20 Fluoxetine HCl [Prozac] 40 mg PO DAILY 01/06/20 Insulin Aspart Protam & Aspart [Novolog Mix 70-30 Vial] 66 unit SQ DAILY@1700 01/06/20 Insulin Aspart Protam & Aspart [Novolog Mix 70-30 Vial] 100 unit SQ DAILY@0800 01/06/20 Levothyroxine Sodium [Synthroid] 125 mcg PO DAILY 01/06/20 Melatonin/Pyridoxine HCl (B6) [Melatonin 3 mg Tablet] 1 tab PO QHS 01/06/20 Metoprolol Tartrate 50 mg PO BID 01/06/20 Multivitamin [Multiple Vitamins] 1 tab PO DAILY 01/06/20 Omeprazole 20 mg PO DAILY 01/06/20 Risperidone 2 mg PO QHS 01/06/20 Timolol 0.25% [Timoptic] 1 drp EACH EYE DAILY 01/06/20 Travoprost [Travatan Z] 1 drp EACH EYE QHS 01/06/20 hydrOXYzine pamoate capsule [Vistaril pamoate capsule] 25 mg PO QHS 01/06/20 traZODone [Desyrel] 200 mg PO QHS 01/06/20 metFORMIN HCl [Glucophage] 500 mg PO BIDCM #0 01/08/20 Primary Care Physician: [facility] [Primary Care Provider] - Please follow up with your Primary Care Physician in: [place] 2 weeks Test Results: Test results from this visit will be discussed in further detail at your follow- up appointment, if applicable. Please Follow Up With: Fina Marcos MD When: as needed for abdominal pain or bowel obstruction
--- NOTE | 2020-01-08 07:32 | DS.PCM_ITS ---
Discharge Date and Diagnosis - Problem List Patient Problems: Active and Suspected Problems (Last Reviewed 03/08/18 @ 10:27 by Bob Paulson MD) Ileus (Acute) Date of Admission: 01/06/20 Date of Discharge: 01/08/20 - Primary Discharge Diagnosis Active and Suspected Problems (Last Reviewed 03/08/18 @ 10:27 by Bob Paulson MD) Ileus (Acute) - Secondary Discharge Diagnosis Chronic Problems (Last Reviewed 03/08/18 @ 10:27 by Bob Paulson MD) History of left heart catheterization (Chronic) 06/20/2005 with subsequent PTCA and STANISLAV @ [facility] : Dr. 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 Patient is being admitted in [facility] floor. 1. Small bowel obstruction * Etiology of small bowel obstruction, most probably fecal retention/slow bowel transit. Had bowel movement with enema last night. * CT of the abdomen and pelvis without contrast individually reviewed and shows dilated loops of small bowel involving ileum along with the small bowel feces and gas. Overall, differential diagnosis is severe ileus or early obstruction. Large bowel shows moderate diffuse fecal retention. * He had a colonoscopy done at the [place] a few years ago and states a few polyps were removed but he was told they were noncancerous. * Barium x-ray follow-through was done which shows retching of contrast in right side of colon in 30 minutes. Patient tolerated solid diet. It is small loose bowel movements secondary to contrast and Kayexalate. Surgeon signed off and okay for discharge 2. Hyperkalemia with mild acute kidney injury: Potassium is 5.6. Potassium corrected with Kayexalate. Repeat K4.0. Admitting BUN/creatinine 20/1.42, improved to 22/1.19. 4. Type 2 diabetes mellitus: Hold empagliflozin and glipizide as well as insulin. Insulin sliding scale. 5. CAD s/p stents: On aspirin and statin. Has chronic shortness of breath on exertion. 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 6. Hypothyroidism: On Synthroid. DVT prophylaxis: Lovenox Discharge medication reconciliation done. Discharge follow-up instructions completed. Discharge process discussed with the patient and all questions were answered to patient's satisfaction. Total time spent, exact 35 minutes on discharge meds reconciliation, examination, coordination of care with nurses and ancillary staff, review of imaging and blood test and discussion with the patient on follow-up instructions Patient Problems: Active and Suspected Problems (Last Reviewed 03/08/18 @ 10:27 by Bob Paulson MD) Ileus (Acute) Subjective: Seen and examined. Patient had about 2 loose bowel movement yesterday. Patient had barium x-ray follow-through which showed contrast in the right hemicolon at 30 minutes. - Physical Exam Vitals/I&O's: Vital Signs Temp Pulse Resp BP Pulse Ox 97.1 F L 71 20 H 145/73 H 94 01/07/20 11:10 01/07/20 11:10 01/07/20 11:10 01/07/20 11:10 01/07/20 11:10 Oxygen Delivery Method Room Air Weight: 212 lb Body Mass Index (BMI) 29.5 Intake and Output for Last 24 Hours 01/05/20 01/06/20 01/07/20 23:59 23:59 23:59 Intake Total 1845.84 / 1845.84 Output Total 1850 / 1850 Balance -4.16 / -4.16 General: Alert, Oriented x3, Cooperative HEENT: Atraumatic, PERRLA, EOMI, Normocephalic Neck: Supple, No JVD, Negative Carotid Bruits Lungs: Clear to auscultation, Diminished, Short of Breath - Chronic shortness of breath on exertion. Cardiovascular: Regular rate, Regular Rhythm, Normal S1, Normal S2, No murmurs Abdomen: Bowel Sounds Present, Soft, Non Tender, Non-Distended Extremities: No edema, Capillary Refill Less than 3 Seconds Skin: No rashes, No breakdown Musculoskeletal: No Tenderness to Palpation of Joints or Extremities, Arthritic Changes Neurological: Cranial nerves II-XII grossly intact, Neuro grossly intact, Motor Exam 5/5 strength throughout Psych/Mental Status: Normal Affect, Appropriate Laboratory Results 01/06/20 15:45: WBC 8.9, RBC 5.83, Hgb 17.8 H, Hct 51.6, MCV 88.5, MCH 30.5, MCHC 34.5, RDW Std Deviation 42.4, RDW Coeff of Indra 13.1, Plt Count 155, MPV 9.7, Immature Gran % (Auto) 0.500, Neut % (Auto) 80.8 H, Lymph % (Auto) 14.4 L, [place] % (Auto) 4.1, Eos % (Auto) 0.1, Baso % (Auto) 0.1, Absolute Neuts (auto) 7.2, Absolute Lymphs (auto) 1.28, Nucleated RBC % 0 01/06/20 15:45: Sodium 136, Potassium 5.6 H, Chloride 102, Carbon Dioxide 25.0, Anion Gap 9, BUN 20 H, Creatinine 1.42 H, Estim Creat Clear Calc 51.56, Est GFR (MDRD) Af Amer 63, Est GFR (MDRD) Non-Af 52 L, BUN/Creatinine Ratio 14.1, Glucose 213 H, Calcium 9.7, Total Bilirubin 0.70, AST 24, ALT 60, Alkaline Phosphatase 117, Total Protein 7.8, Albumin 4.0, Globulin 3.8, Albumin/Globulin Ratio 1.1, Lipase 50 L 01/06/20 19:31: POC Glucose 205 H 01/06/20 23:27: POC Glucose 168 H 01/07/20 05:05: POC Glucose 204 H 01/07/20 05:32: Sodium 135 L, Potassium 4.0, Chloride 105, Carbon Dioxide 24.0, Anion Gap 6, BUN 22 H, Creatinine 1.19, Estim Creat Clear Calc 61.52, Est GFR (MDRD) Af Amer 78, Est GFR (MDRD) Non-Af 64, BUN/Creatinine Ratio 18.5, Glucose 182 H, Calcium 8.4 L 01/07/20 05:32: WBC 9.0, RBC 5.23, Hgb 16.0, Hct 46.3, MCV 88.5, MCH 30.6, MCHC 34.6, RDW Std Deviation 42.7, RDW Coeff of Indra 13.2, Plt Count 147 L, MPV 9.8, Immature Gran % (Auto) 0.300, Neut % (Auto) 62.0, Lymph % (Auto) 28.6, [place] % (Auto) 8.4, Eos % (Auto) 0.4, Baso % (Auto) 0.3, Absolute Neuts (auto) 5.6, Absolute Lymphs (auto) 2.58, Nucleated RBC % 0 01/07/20 12:06: POC Glucose 217 H Current Medications Enoxaparin Sodium (Lovenox) 40 mg SC DAILY@0600 ON LICENSE OF [facility] Last Admin: 01/07/20 04:59 Dose: 40 mg Documented by: Glucagon () 1 mg IM .X1 PRN PRN Reason: Hypoglycemia Sodium Chloride () 250 mls @ 15 mls/hr IV .[id number] PRN PRN Reason: Saline Flush Dextrose (Dextrose 10%-Water) 250 mls @ 999 mls/hr IV .Q16M PRN; Protocol PRN Reason: HYPOGLYCEMIA Insulin Human Lispro (Humalog Kwikpen (Bkc)) 0 unit SC Q6 ALEX; Protocol Last Admin: 01/07/20 12:08 Dose: 2 u Documented by: Latanoprost (Xalatan Opthalmic) 1 drop EACH EYE QHS ON LICENSE OF [facility] Last Admin: 01/06/20 23:22 Dose: 1 drop Documented by: Morphine Sulfate () 2 mg IV Q3H PRN PRN PRN Reason: Pain Score 6-10/10 Ondansetron HCl (Zofran) 4 mg IV Q8H PRN PRN PRN Reason: NAUSEA/VOMITING Sodium Chloride () 10 - 40 ml IV UD PRN PRN Reason: SALINE FLUSH Last Admin: 01/07/20 13:44 Dose: 10 ml Documented by: Home Medications: Medications to take at Discharge aspirin 81 mg tablet,delayed release 81 mg PO DAILY tab 01/17/18 atorvastatin 80 mg tablet 40 mg PO QHS 01/17/18 glipizide 10 mg tablet 10 mg PO BID 01/17/18 lisinopril 5 mg tablet 2.5 mg PO DAILY 01/17/18 donepezil 10 mg tablet 10 mg PO DAILY tab 03/05/18 Cholecalciferol (Vitamin D3) [Vitamin D3] 2,000 unit PO DAILY 01/06/20 Empagliflozin [Jardiance] 25 mg PO DAILY 01/06/20 Fluoxetine HCl [Prozac] 40 mg PO DAILY 01/06/20 Insulin Aspart Protam & Aspart [Novolog Mix 70-30 Vial] 66 unit SQ DAILY@1700 01/06/20 Insulin Aspart Protam & Aspart [Novolog Mix 70-30 Vial] 100 unit SQ DAILY@0800 01/06/20 Levothyroxine Sodium [Synthroid] 125 mcg PO DAILY 01/06/20 Melatonin/Pyridoxine HCl (B6) [Melatonin 3 mg Tablet] 1 tab PO QHS 01/06/20 Metoprolol Tartrate 50 mg PO BID 01/06/20 Multivitamin [Multiple Vitamins] 1 tab PO DAILY 01/06/20 Omeprazole 20 mg PO DAILY 01/06/20 Risperidone 2 mg PO QHS 01/06/20 Timolol 0.25% [Timoptic] 1 drp EACH EYE DAILY 01/06/20 Travoprost [Travatan Z] 1 drp EACH EYE QHS 01/06/20 hydrOXYzine pamoate capsule [Vistaril pamoate capsule] 25 mg PO QHS 01/06/20 traZODone [Desyrel] 200 mg PO QHS 01/06/20 metFORMIN HCl [Glucophage] 500 mg PO BIDCM #0 01/08/20 Primary Care Physician: [facility] [Primary Care Provider] - Medical Necessity - Tobacco Use Smoking Status: Former smoker Tobacco Use: Cigarettes Meaningful Use Info Meaningful Use Diagnoses (Choose all that apply): None applicable Code Visit Inpatient E&M: 17068 Disch Hosp
[2020-01-08 08:11] VITALS: BP 140/91; PULSE 69; RESP 16; TEMP 36.3; O2SAT 96
[2020-01-08 08:17] VITALS: PULSE 94
== END 2020-01-08 09:40 | disposition home or self-care (01) | DRG 389 ==
LOC: ED 17:04 → MS3 17:08
PROVIDERS: Admitting Provider Student in an Organized Health Care Education/Training Program; Emergency Provider Emergency Medicine; Visit Provider Internal Medicine
DX: K56.7 Ileus, unspecified (principal); N17.9 Acute kidney failure, unspecified; E87.5 Hyperkalemia; E11.9 Type 2 diabetes mellitus without complications; I25.10 Atherosclerotic heart disease of native coronary artery without angina pectoris; E03.9 Hypothyroidism, unspecified; I10 Essential (primary) hypertension; I25.2 Old myocardial infarction; E78.5 Hyperlipidemia, unspecified; Z95.5 Presence of coronary angioplasty implant and graft; Z79.4 Long term (current) use of insulin; Z87.891 Personal history of nicotine dependence
CPT/HCPCS: 36415; 74018; 74176; 74250; 80048; 80053; 82962; 83690; 85025; 97162; 97166; 99284; J7030; A4216

== ENCOUNTER 2020-02-26 11:58 | Inpatient (IN) | payer MEDICARE, OTHER, SELFPAY ==
[2020-02-26] VITALS (8 sets, daily range): BP systolic 132–175; BP diastolic 67–90; PULSE 59–77; RESP 16–20; TEMP 35.8–37.2; O2SAT 95–98; BMI 29.8; BMI 29.9
--- NOTE | 2020-02-26 12:26 | EKG12_ITS ---
Test Reason : Blood Pressure : / mmHG Vent. Rate : 056 BPM Atrial Rate : 056 BPM P-R Int : 156 ms QRS Dur : 084 ms QT Int : 424 ms P-R-T Axes : 028 -02 065 degrees QTc Int : 409 ms Sinus bradycardia Inferior infarct , age undetermined Abnormal ECG Confirmed by VICTOR MANUEL MONGE, DARNELL ([id number]), marketing editor ASIF GAONA ([id number]) on 03/02/2020 2:15:05 PM Referred By: ROSANA Confirmed By:YRIS RUSH MD
--- NOTE | 2020-02-26 12:26 | CT_ITS ---
STUDY: CT ABDOMEN AND PELVIS WITH CONTRAST REASON FOR EXAM: Male, 69 years old. ABD PAIN/CONSTIPATION/DYSPNEA/COUGH, HTN, CAD WITH STENTS RADIATION DOSAGE (If Supplied By Facility): CTDIvol = ( 18.46 ) mGy, DLP = ( 1229.79 ) mGycm TECHNIQUE: Transaxial images were obtained from the dome of the diaphragm to the symphysis pubis with oral contrast. Oral and amp; IV Gastrografin and amp; 100mL OPTIRAY 320 was administered. Sagittal and coronal images were reconstructed. Individualized dose optimization techniques were used for this CT. COMPARISON: Comparison is made with prior examination dated January 06, 2020. FINDINGS: The visualized lung bases are unremarkable. Coronary artery calcification. There is decreased attenuation of the liver consistent with steatosis. Inhomogeneous appearance of the left lobe of the liver adjacent to the falciform ligament. This measures 4 cm x 2.2 cm. Normal gallbladder and extrahepatic biliary system. Normal spleen. There is diffuse atrophy of the pancreas. Normal bilateral adrenal glands. Normal right kidney. Normal left kidney. There is a small hiatal hernia. Normal small intestine. There are several fluid-filled nondilated small bowel loops in the central abdomen. The appendix is visualized and appears normal. There is diffuse atherosclerotic calcification of the abdominal aorta, without a demonstrated aneurysm. Normal inferior vena cava. Normal retroperitoneum. Normal urinary bladder. There is enlargement of the prostate gland. It measures 4.7 cm x 4.8 cm. Normal abdominal wall. There are degenerative changes of the visualized lumbar spine. Loss of the normal lumbar lordosis. CT/Abdomen/Pelvis WITH Contrast IMPRESSION: Diffuse fatty infiltration of the liver. Inhomogeneous appearance of the left lobe of liver adjacent to the falciform ligament. This may represent dilated intrahepatic biliary ducts. Atrophy of the pancreas. Several fluid filled nondistended small bowel loops in the central portion of the abdomen. Electronically Signed: Maxx Bradford, at 15:01 EDT , Service support ,
--- NOTE | 2020-02-26 12:44 | ED.DCSUM_ITS ---
History of Present Illness Chief Complaint: Constipation Informant: Patient - Abdominal Pain/Flank Pain Onset: Today Context: Gradual Onset Timing: Continuous Location: Diffuse - Nausea/Vomiting/Emesis GI Symptom: Nausea. Negative for: Vomiting Onset: Today - Diarrhea/Melena/Hematochezia GI Symptom: - - Constipation Associated Symptoms: Negative for: Dysuria, Frequency, Hematuria Narrative: Patient is a 69-year-old male with history of coronary artery disease, hypertension, hypothyroid, diabetes mellitus, hyperlipidemia and ileus presenting with abdominal pain and constipation. He states his symptoms started last night. He notes that he has not passed any gas today. He has diffuse abdominal pain. He has nausea but no vomiting. Patient was admitted 1 month ago for a rule out small bowel obstruction was found to have an ileus. Patient states this feels like this episode. Patient is never had any abdominal surgeries. In addition, he notes for the past week him and his of both had a cold. Notes 1 week of runny nose and mild cough. It is nonproductive. He denies any fever or chills. He states he feels slightly short of breath but has a hard time describing it. The shortness of breath is new today. 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 Past Medical History - Allergies and Home Meds Allergies/Adverse Reactions: Allergies fenofibrate [From Tricor] Adverse Reaction (Verified 02/26/20 12:00) facial movements thioridazine [From Mellaril] Adverse Reaction (Verified 02/26/20 12:00) facial movements Past Medical History: - - Patient is a 69-year-old male with history of coronary artery disease, hypertension, hypothyroid, diabetes mellitus, hyperlipidemia and ileus presenting with abdominal pain and constipation. He states his symptoms started last night. He notes that he has not passed any gas today. He has diffuse abdominal pain. He has nausea but no vomiting. Patient was admitted 1 month ago for a rule out small bowel obstruction was found to have an ileus. Patient states this feels like this episode. Patient is never had any abdominal surgeries. In addition, he notes for the past week him and his of both had a cold. Notes 1 week of runny nose and mild cough. It is nonproductive. He denies any fever or chills. He states he feels slightly short of breath but has a hard time describing it. The shortness of breath is new today. 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 Surgical History: - - vasectomy Lives: Spouse/ Significant Other Smoking Status: Former smoker - Family History Maternal Family History: Family History (Last Reviewed 02/26/20 @ 16:10 by CRYSTAL Pendleton) Mother Diabetes Brother CAD (coronary artery disease) Sudden cardiac Myocardial infarction Brother CAD (coronary artery disease) Father No problems noted. Other Family history of coronary artery disease Review of Systems General: Denies: Chills, Fever, Sweats Eyes: Denies: Visual changes - bilaterally, Diplopia ENT: Reports: Rhinorrhea. Denies: Bilateral ear pain, Sore throat Cardiovascular: Denies: Chest pain, Palpitations Respiratory: Reports: Dyspnea, Cough. Denies: Dyspnea on exertion Gastrointestinal: Reports: Abdominal pain, Nausea, Constipation. Denies: Vomiting, Diarrhea, Melena, Hematochezia Genitourinary: Denies: Dysuria, Hematuria, Frequency Musculoskeletal: Denies: Back pain, Extremity Pain Skin: Denies: Rash, Wounds Neurological: Denies: Headache, Weakness, Numbness Physical Exam Vital Signs/Narrative: Vital Signs Temp Pulse Resp BP Pulse Ox 02/26/20 11:58 97.5 F L 59 L 18 141/80 H 96 Inital Vital Signs reviewed: Yes General: Well nourished, Well developed, No Acute Distress Head: Normocephalic, Atraumatic Eyes: Perrl, EOMI ENT: Moist mucous membranes, No rhinorrhea Neck: Supple, Nontender Cardiovascular: Regular rate, Regular rhythm, No murmurs Respiratory: No distress, CTA bilaterally, Chest nontender Abdomen: Soft, Nondistended, Normal bowel sounds, No masses, Tender - diffuse. Negative for: Guarding, Rebound tenderness Back: Nontender, Normal Inspection. Negative for: CVA tenderness Extremities: Nontender, No edema Skin: Normal color, No rash Neurological: Alert, Oriented x3, Cranial nerves II-XII grossly intact, Normal Strength, Normal Sensation Psychological: Normal affect, Normal Mood Diagnostic/Tx/Re-eval Clinical Impression(s) from Imaging Studies Abdomen/Pelvis CT 02/26/20 12:26 IMPRESSION: Diffuse fatty infiltration of the liver. Inhomogeneous appearance of the left lobe of liver adjacent to the falciform ligament. This may represent dilated intrahepatic biliary ducts. Atrophy of the pancreas. Several fluid filled nondistended small bowel loops in the central portion of the abdomen. Electronically Signed: Maxx Bradford, at 15:01 EDT , Service support , Chest X-Ray 02/26/20 14:34 IMPRESSION: Borderline cardiomegaly. Electronically Signed: Maxx Bradford, at 15:01 EDT , Service support , Laboratory Data 02/26/20 02/26/20 02/26/20 12:54 12:54 13:35 WBC 10.0 RBC 5.92 Hgb 17.7 H Hct 52.9 MCV 89.4 MCH 29.9 MCHC 33.5 RDW Std Deviation 42.3 RDW Coeff of Indra 12.9 Plt Count 175 MPV 9.7 Immature Gran % (Auto) 0.400 Neut % (Auto) 78.5 H Lymph % (Auto) 16.9 L [place] % (Auto) 3.9 Eos % (Auto) 0.1 Baso % (Auto) 0.2 Absolute Neuts (auto) 7.9 H Absolute Lymphs (auto) 1.69 Nucleated RBC % 0 Sodium 137 Potassium 5.8 H Chloride 103 Carbon Dioxide 26.0 Anion Gap 8 BUN 22 H Creatinine 1.52 H Estim Creat Clear Calc 48.16 Est GFR (MDRD) Af Amer 59 L Est GFR (MDRD) Non-Af 48 L BUN/Creatinine Ratio 14.5 Glucose 252 H Calcium 9.7 Total Bilirubin 0.60 AST 28 ALT 52 Alkaline Phosphatase 122 H Troponin I < 0.015 Total Protein 8.0 Albumin 4.1 Globulin 3.9 Albumin/Globulin Ratio 1.1 Lipase 67 L Urine Color Yellow Urine Clarity Clear Urine pH 6.0 Ur Specific [place] 1.020 Urine Protein 30 H Urine Glucose (UA) 1000 H Urine Ketones 15 H Urine Occult Blood Negative Urine Nitrite Negative Urine Bilirubin Negative Urine Urobilinogen Normal Ur Leukocyte Esterase Negative Urine RBC 0 SEEN Urine WBC 0 SEEN Ur Squamous Epith Cells 0 SEEN Urine Bacteria 0 SEEN Urine Mucus 0 SEEN - Rhythm Strip Rhythm Strip: Sinus bradycardia Rate: 56 Ectopy: None - EKG Initial EKG Interpretation: Sinus Bradycardia, - - Sinus bradycardia at a rate of 56 Normal intervals Normal axis Normal ST segments - Medical Decision Making Patient is evaluated for 1 abdominal pain. He had a similar episode 1 month ago. Patient's abdomen is soft and its a nonfocal exam. His vital signs are normal. Patient's EKG is unremarkable. He does not have peak T waves or other findings concerning for hyperkalemia. Other lab work is remarkable for a mildly elevated potassium of 6.8. Patient is not on any medication that should because his potassium be this high. His creatinine is also mildly elevated at 1.5. His baseline appears to be closer to 1. He is slightly hemoconcentrated with a hemoglobin of 17.1. White blood cell count is normal. Patient does have 15 ketones in his urine. No signs of infection. Troponin is normal. CT of the abdomen and pelvis shows some dilated loops of bowel. Discussed with Dr. Marcos, who saw the patient last month. She recommended small bowel follow- through since he received oral contrast. She suspects that his electrolyte imbalances are what are causing his ileus/GI symptoms. Patient is given IV fluids in the emergency room. He will be started on Kayexalate on the floor. Patient is agreeable this plan. He is hemodynamically stable in the emergency room. ED Disposition - Plan for ED Patient: Disposition: Acute Care Hospital [facility] Diagnosis: Small bowel obstruction, Hyperkalemia, Elevated serum creatinine, Abdominal pain
[2020-02-26] MEDS: Ondansetron 4 MG/2 ML Vial IV (12:51)
[2020-02-26 13:12] LABS: Absolute Lymphocyte Count 1.69 X10^3/uL (0.83-4.51); Absolute Neutrophil Count 7.9 X10^3/uL (2.0-7.7); Basophil# 0.02 X10^3/uL; Basophil% 0.2 % (0-1); Eosinophil# 0.01 X10^3/uL; Eosinophils% 0.1 % (0-5); Hematocrit 52.9 % (40-54); Hemoglobin 17.7 g/dL (13.0-16.5); Lymphocyte # 1.69 X10^3/ul (4.0); Lymphocyte % 16.9 % (19-41); Mean Corp Hgb Conc 33.5 g/dL (32-36); Mean Corpuscular Hgb 29.9 pg (27.0-32.0); Mean Corpuscular Volume 89.4 fL (80-94); Mean Platelet Vol. 9.7 fl (6.2-12.0); Monocyte# 0.39 X10^3/uL; Monocyte% 3.9 % (0-10); NRBC Flagged by Analyzer 0 % (0-5); Neutrophil # 7.87 X10^3/uL (2.7-7.7); Neutrophil % 78.5 % (47-70); Platelet Count 175 K/mm3 (150-450); RBC Distribution Width CV 12.9 % (11.6-14.6); RBC Distribution Width SD 42.3 fl (35.1-43.9); Red Blood Count 5.92 M/mm3 (4.6-6.2)
[2020-02-26 13:30] LABS: ALB/GLOB Ratio 1.1 RATIO (0.9-2.4); AST(SGOT) 28 U/L (15-37); Alanine Aminotransfer ALT/SGPT 52 U/L (16-61); Albumin, Serum 4.1 g/dL (3.2-5.0); Alkaline Phosphatase 122 U/L (45-117); Anion Gap 8 (5-15); BUN 22 mg/dL (7-18); BUN/Creat Ratio 14.5 RATIO (10-20); Calcium,Total 9.7 mg/dL (8.5-10.1); Chloride 103 mmol/L (98-107); Creatinine, Serum 1.52 mg/dL (0.70-1.30); EST Glomerular Filtration Rate 48 mL/min (>60); Est Glom Filt Rate - Afr Amer 59 mL/min (>60); Estimated Creatinine Clearance 48.16 ml/min; Globulin 3.9 g/dL (2.2-4.2); Glucose 252 mg/dL (74-106); Lipase 67 U/L (73-393); Potassium 5.8 mmol/L (3.5-5.1); Sodium Level 137 mmol/L (136-145)
[2020-02-26 14:24] LABS: Bacteria 0 SEEN /hpf (None Seen); Mucous, Urine 0 SEEN /hpf (<or=2+); Red Blood Cells-Urine 0 SEEN /hpf (0-5); Squamous Epithelial Cells - UA 0 SEEN /hpf (0-5); White Blood Cells 0 SEEN /hpf (0-5)
[2020-02-26 14:32] LABS: Color, Urine Yellow (Yellow); Glucose, Dipstick 1000 mg/dl (Normal); Ketone-Dipstick 15 mg/dl (Negative); Leukocyte Esterase-Dipstick Negative /ul (Negative); Nitrite-Dipstick Negative (Negative); Occult Blood-Urine Negative /ul (Negative); Protein-Dipstick 30 mg/dl (Negative); Urine Bilirubin Dipstick Negative (Negative); Urine Clarity Clear (Clear); Urine Urobilinogen Normal (Normal)
--- NOTE | 2020-02-26 14:34 | RAD_ITS ---
STUDY: X-RAY CHEST REASON FOR EXAM: Male, 69 years old. COUGH, DYSPNEA; -- H/O OK, STENT TECHNIQUE: Single AP portable view of the chest. COMPARISON: None. FINDINGS: Elevation of the right hemidiaphragm. The lungs are clear and expanded. There is no demonstrated pleural abnormality. There is borderline cardiomegaly. Normal mediastinum and candy. Normal visualized pulmonary arteries. Normal visualized aortic arch and descending thoracic aorta. Normal visualized thoracic spine. Normal visualized ribs, clavicles, and shoulders. There is no demonstrated abnormality of the visualized soft tissue structures of the upper abdomen. RAD/Chest 1 View (Portable) IMPRESSION: Borderline cardiomegaly. Electronically Signed: Maxx Bradford, at 15:01 EDT , Service support ,
[2020-02-26] MEDS: 0.9% Normal Saline 1,000 ML 999 ML IV (15:59)
--- NOTE | 2020-02-26 16:04 | HP.PCM_ITS ---
<Juanjo Degroot - Last Filed: 02/26/20 16:04> Problem List (1) Small bowel obstruction Status: Acute (2) Rhinitis Status: Acute (3) Hypertension Status: Chronic Qualifiers: Hypertension type: essential hypertension Qualified Code(s): I10 - Essential (primary) hypertension (4) Diabetes mellitus Status: Chronic (5) Hyperlipidemia Status: Chronic Qualifiers: Hyperlipidemia type: pure hypercholesterolemia Qualified Code(s): E78.00 - Pure hypercholesterolemia, unspecified; E78.0 - Pure hypercholesterolemia History of Present Illness Date of Admission: 02/26/20 Chief Complaint: abdominal pain The patient is a 69 year old M with pmhx of recent bowel obstruction, htn, dmt2, htn, hld, who presents to the ER with c/o constipation. The patient has had constipation and abdominal pain that started last night. He has had some nausea without vomiting, diffuse abdominal pain, and two stringy bowel movements. Very small amount of stool produced with these. No blood or mucus. He was here with constipation about a month ago and was given an enema and discharged home. Pt has no hx of abdominal surgery. He also has had a cold all week. He has runny nose and mild sore throat, occasional dry cough and mild SOB. He denies fevers or chills. His has had a similar problem all week. [] Past Medical History Past Medical History (Chronic Problems): Chronic Problems (Last Reviewed 03/08/18 @ 10:[address] Bob Paulson MD) History of left heart catheterization (Chronic) 06/20/2005 with subsequent PTCA and STANISLAV @ [facility] : Dr. 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) Z79.899 Hyperlipidemia (Chronic) E78.5 Allergies fenofibrate [From Tricor] Adverse Reaction (Verified 02/26/20 12:00) facial movements thioridazine [From Mellaril] Adverse Reaction (Verified 02/26/20 12:00) facial movements Home Medications: Ambulatory Orders Medication Instructions Recorded aspirin 81 mg tablet,delayed 81 mg PO DAILY tab 01/17/18 release atorvastatin 80 mg tablet 40 mg PO QHS 01/17/18 glipizide 10 mg tablet 10 mg PO BID 01/17/18 lisinopril 5 mg tablet 2.5 mg PO DAILY 01/17/18 donepezil 10 mg tablet 10 mg PO DAILY tab 03/05/18 Cholecalciferol (Vitamin D3) 2,000 unit PO DAILY 01/06/20 [Vitamin D3] Empagliflozin [Jardiance] 25 mg PO DAILY 01/06/20 Fluoxetine HCl [Prozac] 40 mg PO DAILY 01/06/20 Insulin Aspart Protam & Aspart 66 unit SQ DAILY@1700 01/06/20 [Novolog Mix 70-30 Vial] Insulin Aspart Protam & Aspart 100 unit SQ DAILY@0800 01/06/20 [Novolog Mix 70-30 Vial] Levothyroxine Sodium [Synthroid] 125 mcg PO DAILY 01/06/20 Melatonin/Pyridoxine HCl (B6) 1 tab PO QHS 01/06/20 [Melatonin 3 mg Tablet] Metoprolol Tartrate 50 mg PO BID 01/06/20 Multivitamin [Multiple Vitamins] 1 tab PO DAILY 01/06/20 Omeprazole 20 mg PO DAILY 01/06/20 Risperidone 2 mg PO QHS 01/06/20 Timolol 0.25% [Timoptic] 1 drp EACH EYE DAILY 01/06/20 Travoprost [Travatan Z] 1 drp EACH EYE QHS 01/06/20 hydrOXYzine pamoate capsule 25 mg PO QHS 01/06/20 [Vistaril pamoate capsule] traZODone [Desyrel] 200 mg PO QHS 01/06/20 metFORMIN HCl [Glucophage] 500 mg PO BIDCM #0 01/08/20 Surgical History: Surgical History (Last Reviewed 03/08/18 @ 10:[address] Bob Paulson MD) History of left heart catheterization (Chronic) Z98.890 06/20/2005 with subsequent PTCA and STANISLAV @ [facility] : Dr. Herrera History of percutaneous transluminal coronary angioplasty Z98.61 PTCA & stent placement in posterior descending branch of RCA, using STANISLAV Surgical History: - - vasectomy Psychiatric History: No pertinent psych hx Lives: Spouse/ Significant Other Smoking Status: Current some day smoker Tobacco Use: Non-smoker Alcohol: None Drugs: None - *Family History Maternal Family History: Family History (Last Reviewed 02/26/20 @ 16:10 by CRYSTAL Pendleton) Mother Diabetes Brother CAD (coronary artery disease) Sudden cardiac Myocardial infarction Brother CAD (coronary artery disease) Father No problems noted. Other Family history of coronary artery disease Review of Systems Constitutional: Denies: Chills, Fever, Weight Change HEENT: Denies: Head Aches, Sinus Congestion, Sinus Drainage Cardiovascular: Denies: Chest Pain, Palpitations Respiratory: Denies: Cough, Shortness of breath at rest, Sputum production Gastrointestinal: Denies: Abdominal Pain, Nausea, Vomiting Genitourinary: Denies: Dysuria Musculoskeletal: Denies: Joint Pain, Joint Tenderness Skin: Denies: Rash, Wounds Neurological: Denies: Numbness, Tingling, Focal weakness Psychiatric: Denies: Anxiety, Depression, Homicidal Ideations, Suicidal Ideations Hematologic/ Lymphatic: Denies: Easy Bruising, Easy Bleeding VTE Information - Inpt Only VTE Present on Admission: No VTE Mechan Device Prophylaxis: None VTE Pharm Prophylaxis ordered?: Yes Patient Problems: Active and Suspected Problems (Last Reviewed 03/08/18 @ 10:[address] Bob Paulson MD) Small bowel obstruction (Acute) Rhinitis (Acute) - Physical Exam Vitals/I&O's: Vital Signs Temp Pulse Resp BP Pulse Ox 97.5 F L 59 L 18 141/80 H 96 02/26/20 11:58 02/26/20 11:58 02/26/20 11:58 02/26/20 11:58 02/26/20 11:58 Oxygen Delivery Method Room Air Weight: 214 lb Body Mass Index (BMI) 29.8 General: Alert, Oriented x3, Cooperative HEENT: Atraumatic, PERRLA, EOMI, Normocephalic Neck: Supple, No JVD, Negative Carotid Bruits Lungs: Clear to auscultation, Normal air movement Cardiovascular: Regular rate, No murmurs Abdomen: Bowel Sounds Present, Soft, Non Tender Extremities: No edema, Capillary Refill Less than 3 Seconds Skin: No rashes, No breakdown Musculoskeletal: No Tenderness to Palpation of Joints or Extremities Neurological: Cranial nerves II-XII grossly intact Psych/Mental Status: Normal Affect, Appropriate, Alert and oriented to time, place, person, mood and affect Laboratory Results 02/26/20 12:54: WBC 10.0, RBC 5.92, Hgb 17.7 H, Hct 52.9, MCV 89.4, MCH 29.9, MCHC 33.5, RDW Std Deviation 42.3, RDW Coeff of Indra 12.9, Plt Count 175, MPV 9.7, Immature Gran % (Auto) 0.400, Neut % (Auto) 78.5 H, Lymph % (Auto) 16.9 L, Cass % (Auto) 3.9, Eos % (Auto) 0.1, Baso % (Auto) 0.2, Absolute Neuts (auto) 7.9 H, Absolute Lymphs (auto) 1.69, Nucleated RBC % 0 02/26/20 12:54: Sodium 137, Potassium 5.8 H, Chloride 103, Carbon Dioxide 26.0, Anion Gap 8, BUN 22 H, Creatinine 1.52 H, Estim Creat Clear Calc 48.16, Est GFR (MDRD) Af Amer 59 L, Est GFR (MDRD) Non-Af 48 L, BUN/Creatinine Ratio 14.5, Glucose 252 H, Calcium 9.7, Total Bilirubin 0.60, AST 28, ALT 52, Alkaline Phosphatase 122 H, Troponin I < 0.015, Total Protein 8.0, Albumin 4.1, Globulin 3.9, Albumin/Globulin Ratio 1.1, Lipase 67 L 02/26/20 13:35: Urine Color Yellow, Urine Clarity Clear, Urine pH 6.0, Ur Spec ific [place] 1.020, Urine Protein 30 H, Urine Glucose (UA) 1000 H, Urine Ketones 15 H, Urine Occult Blood Negative, Urine Nitrite Negative, Urine Bilirubin Negative, Urine Urobilinogen Normal, Ur Leukocyte Esterase Negative, Urine RBC Pending, Urine WBC Pending, Ur Squamous Epith Cells Pending, Urine Bacteria Pending, Urine Mucus Pending Assessment/Plan All Active Problems (Last Reviewed 03/08/18 @ 10:[address] Bob Paulson MD) Ileus (Acute) Small bowel obstruction (Acute) Rhinitis (Acute) Chest pain, precordial (Acute) Family history of coronary artery disease (Acute) 1. SBO - NPO. Consult [place]. IV fluids, antiemetics and pain control. continue ppi. denies hx abd surgery. 2. Hyperkalemia, mild elevation in creatinine - continue IV fluids. recheck later. 3. Rhinitis - suspect viral. runny nose, sore throat, dry cough, mild SOB. supportive care. 4. DMt2 - poorly controlled. 1000 glucose in urine + hyperglycemic on bmp. Hold home meds, start SSI q6h. 5. HTN - prn hydralazine hold orals 6. hypothyroidism - synthroid, hold 7. dementia- aricept, hold DVT ppx: lovenox This patient was seen by Juanjo Degroot PA-C under the supervision of Doctor Elvin. <Maribel Oconnor - Last Filed: 02/26/20 17:05> History of Present Illness The patient is a 69 year old M [] Past Medical History Medical History: Medical History (Last Reviewed 03/08/18 @ 10:[address] 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 Bob Paulson MD) History of left heart catheterization (Chronic) Z98.890 06/20/2005 with subsequent PTCA and STANISLAV @ [facility] : Dr. Herrera History of percutaneous transluminal coronary angioplasty Z98.61 PTCA & stent placement in posterior descending branch of RCA, using STANISLAV - *Family History Maternal Family History: Family History (Last Reviewed 02/26/20 @ 16:10 by CRYSTAL Pendleton) Mother Diabetes Brother CAD (coronary artery disease) Sudden cardiac Myocardial infarction Brother CAD (coronary artery disease) Father No problems noted. Other Family history of coronary artery disease - Physical Exam Vitals/I&O's: Vital Signs Temp Pulse Resp BP Pulse Ox 96.4 F L 74 18 175/90 H 95 02/26/20 16:01 02/26/20 16:01 02/26/20 16:01 02/26/20 16:01 02/26/20 16:01 Oxygen Delivery Method Room Air Weight: 97.114 kg Body Mass Index (BMI) 29.8 Laboratory Results 02/26/20 12:54: WBC 10.0, RBC 5.92, Hgb 17.7 H, Hct 52.9, MCV 89.4, MCH 29.9, MCHC 33.5, RDW Std Deviation 42.3, RDW Coeff of Indra 12.9, Plt Count 175, MPV 9.7, Immature Gran % (Auto) 0.400, Neut % (Auto) 78.5 H, Lymph % (Auto) 16.9 L, Cass % (Auto) 3.9, Eos % (Auto) 0.1, Baso % (Auto) 0.2, Absolute Neuts (auto) 7.9 H, Absolute Lymphs (auto) 1.69, Nucleated RBC % 0 02/26/20 12:54: Sodium 137, Potassium 5.8 H, Chloride 103, Carbon Dioxide 26.0, Anion Gap 8, BUN 22 H, Creatinine 1.52 H, Estim Creat Clear Calc 48.16, Est GFR (MDRD) Af Amer 59 L, Est GFR (MDRD) Non-Af 48 L, BUN/Creatinine Ratio 14.5, Glucose 252 H, Calcium 9.7, Total Bilirubin 0.60, AST 28, ALT 52, Alkaline Phosphatase 122 H, Troponin I < 0.015, Total Protein 8.0, Albumin 4.1, Globulin 3.9, Albumin/Globulin Ratio 1.1, Lipase 67 L 02/26/20 13:35: Urine Color Yellow, Urine Clarity Clear, Urine pH 6.0, Ur Specific [place] 1.020, Urine Protein 30 H, Urine Glucose (UA) 1000 H, Urine Ket ones 15 H, Urine Occult Blood Negative, Urine Nitrite Negative, Urine Bilirubin Negative, Urine Urobilinogen Normal, Ur Leukocyte Esterase Negative, Urine RBC 0 SEEN, Urine WBC 0 SEEN, Ur Squamous Epith Cells 0 SEEN, Urine Bacteria 0 SEEN, Urine Mucus 0 SEEN Current Medications Al Hydroxide/Mg Hydroxide (Mylanta Ii) 30 ml PO Q6H PRN PRN PRN Reason: Gastric Burning Dextrose (D50w Syringe) 0 gm IV X1 PRN; Protocol PRN Reason: Hypoglycemia Glucagon () 1 mg IM .X1 PRN PRN Reason: Hypoglycemia Hydralazine HCl (Apresoline Iv) 5 mg IV Q6H PRN PRN PRN Reason: BLOOD PRESSURE Sodium Chloride () 1,000 mls @ 100 mls/hr IV .Q10H ALEX Insulin Human Lispro (Humalog Kwikpen (Bkc)) 0 unit SC Q6 ALEX; Protocol Ondansetron HCl (Zofran) 4 mg IV Q8H PRN PRN PRN Reason: NAUSEA/VOMITING Sodium Chloride () 10 - 40 ml IV UD PRN PRN Reason: SALINE FLUSH Assessment/Plan This patient was seen in conjunction with CRYSTAL Pendleton. I have independently interviewed and examined the patient and reviewed pertinent historical, laboratory, and other data. Please refer to CRYSTAL Pendleton note for his patient's presentation, findings, and recommendations. I have reviewed and his note and concur with his documentation 69-year-old male with past medical history of hypertension, type II DM, morbid obesity, hypothyroidism, who was recently admitted and discharged 1 month ago with similar presentation abdominal distention and was diagnosed with small bowel obstruction. Patient comes in with a one-day history of abdominal distention and pain associated with nausea but no vomiting. He has had 2 small bowel movements today. He denied any fever or chills or shortness of breath. Review of systems was positive for upper respiratory symptoms -runny nose, sore throat, cough without myalgia or fever. It has been ongoing for about a week. Physical Exam: Gen: Comfortable, obese,, not pale, not jaundiced CVS:HS I +II, regular, no murmurs RESP: CTA GI: BS hypoactive, soft, tenderness in the epigastric region, no palpable organs EXT:No edema ASSESSMENT: 1. Partial small bowel obstruction 2. Upper respiratory infection, low suspicion for CO VID?19 3. 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 BERT on CKD stage III 5. Type II DM 6. Hypertension 7. Morbid obesity Plan: We will keep n.p.o., IV fluids Discussed with Dr. Marcos, who was consulted from the ED, will continue on conservative management Small bowel follow-through tomorrow planned Repeat BMP at 5 PM Hold lisinopril and metformin Continue on insulin sliding scale Repeat blood work in a.m. Inpatient E&M: 30319 Init Hosp L3
[2020-02-26 18:09] LABS: Anion Gap 11 (5-15); BUN 22 mg/dL (7-18); BUN/Creat Ratio 16.4 RATIO (10-20); Calcium,Total 9.5 mg/dL (8.5-10.1); Chloride 104 mmol/L (98-107); Creatinine, Serum 1.34 mg/dL (0.70-1.30); EST Glomerular Filtration Rate 56 mL/min (>60); Est Glom Filt Rate - Afr Amer 68 mL/min (>60); Estimated Creatinine Clearance 54.63 ml/min; Glucose 215 mg/dL (74-106); Potassium 5.1 mmol/L (3.5-5.1); Sodium Level 136 mmol/L (136-145)
[2020-02-26] MEDS: 0.9% Normal Saline 1,000 ML 125 ML IV (18:18)
[2020-02-26] MEDS: Insulin Lispro 100 UNIT/ML INSULN.PEN SC ×2 (18:19→23:51)
[2020-02-26 23:56] LABS: Bedside Glucose 215 mg/dL (70-110)
[2020-02-27] VITALS (23 sets, daily range): BP systolic 136–186; BP diastolic 67–103; PULSE 69–140; RESP 16–20; TEMP 36.3–37.1; O2SAT 93–98; BMI 29.9
--- NOTE | 2020-02-27 | COL_PTH ---
PATIENT: HERNÁN BARRAZA LOC: [facility] U#:[id number] AGE/SX: 69/M ROOM: [facility] RE02/27/[address]: Dr. Clyde Vincent MD : 1950 BED: 1 DIS: 03/03/2020 SPEC #: [id number] RECD: 02/27/20 15:25 STATUS: ZARA NGUYEN #: [id number] BASHIR: 02/27/20 00:[address]: Fina Marcos DEPT: SURGICAL PATHOLOGY RECD BY: Sarina Aviles ENTERED: 03/01/20 08:21 SP TYPE: COLON OTHR DR: MD Dr. Clyde Benson MD [facility] Tissues: A - Ileum, NOS B - Cecum, NOS C - Ileum, NOS D - Ileum, NOS Procedures: Frozen Section (charge) Surgery Specimen Level V HEADER OPERATION: Diagnostic laparoscopy converted to laparotomy PRE-OP DIAGNOSIS: Small bowel obstruction TISSUE SUBMITTED: A - Portion of ileum, long suture at distal end, sent for FS at 1523, B - Cecum, C - Proximal ileum, stitch viramontes proximal margin, D - Mid ileum, stitch viramontes proximal end FROZEN SECTION DIAGNOSIS A. Portion of ileum, segmental resection: Invasive adenocarcinoma. AM:jefferson 03/01/20 MICROSCOPIC DIAGNOSIS A. Segment of ileum, segmental colectomy: Invasive adenocarcinoma. See cancer checklist below. B. Cecum, segmental resection: Metastatic adenocarcinoma. See comment. C. Proximal ileum, segmental resection: Metastatic adenocarcinoma. See comment. D. Mid ileum, segmental resection: Metastatic adenocarcinoma. One out of one lymph node negative for metastatic carcinoma. See comment. AM:jefferson 03/05/20 COMMENT CANCER CASE SUMMARY (SPECIMEN A) Procedure - segmental colectomy Tumor site - small bowel Tumor size - 2.5 x 2 x 1.3 cm Macroscopic tumor perforation - not identified Histologic type - adenocarcinoma Histologic grade - well differentiated (G1) Tumor extension - tumor invades through muscularis propria into subserosa and focally extends to serosal surface. Margins: Proximal margin - free of carcinoma Distal margin - free of carcinoma Radial margin - serosal surface is focally involved by invasive carcinoma Treatment effect - unknown Lymphovascular invasion - not identified Perineural invasion - not identified Tumor deposits - 10 deposits ranging in size from 7 to 12 millimeters Regional lymph nodes - 6 out of 6 lymph node negative for metastatic carcinoma (Inclusive of specimens A, B & D) Tumor markers: CEA = 0.9 ng/mL CA19-9 = 1240 U/mL Ancillary studies - Immunohistochemistry ([id number]) No evidence of microsatellite instability. Additional pathologic findings - not identified PATHOLOGIST STAGE: T3 N0 Mx The above summary is in compliance with [employer] (CAP) Cancer Protocols Checklist and [place] [employer] Committee on Cancer (AJCC), Staging Manual, 8th Ed. B. Sections of the cecum and specifically the ileocecal valve show a metastatic focus of adenocarcinoma measuring 3.5 cm in greatest dimension. The mass involves the muscularis propria and subserosa with extension to the mucosa. This metastatic focus has an infiltrative margin and does not appear to be arising from the overlying mucosa. This carcinoma extends to the serosal surface. The carcinoma is also seen to extend to the appendiceal luminal orifice but involves the subserosal fat and muscularis propria.. The mucosal margins of this segment of small bowel/cecum are free of carcinoma. Dissection of the subserosal fatty tissue reveals two additional tumor deposits ranging in size from 5 to 8 millimeters in greatest dimension. Also present in the attached fibrofatty tissue are four lymph nodes which are all negative for metastatic carcinoma. C. Sections show four metastatic subserosal/mesenteric foci of adenocarcinoma ranging in size from 4 to 12 millimeters in greatest dimension. No lymph nodes are identified in this segment of bowel and the mucosal margins are free of carcinoma. D. Sections show 12 foci of metastatic carcinoma ranging in size from 5 to 13 millimeters. These foci of metastatic carcinoma are present in the subserosa with extension into the muscularis propria. Several of these foci are noted to involve the serosal surface. A single lymph node is identified and is free of adenocarcinoma. One focus of metastatic carcinoma is present in the soft tissue at the proximal margin of resection. However, the mucosa at this margin is free of carcinoma. This case was reviewed and diagnosis discussed with Dr. Marcos on 03/03/20. Case has been reviewed in consultation with Dr. Ramirez who concurs with the above diagnosis. IDC:SJ MICROSCOPIC DESCRIPTION Slides are reviewed. GROSS DESCRIPTION A - Received fresh for frozen section consultation labeled with the patient's name is a specimen designated portion of ileum. The specimen consists of a 23 cm segment of ileum. Located approximately 6 cm from the proximal margin of resection and 6.5 cm from the distal margin of resection is an area of mucosal ulceration that measures 2.5 x 1.5 x 0.3 cm. The remainder of the bowel mucosa is free of mass lesions. Beneath the ulcer is a firm, indurated, light barahona-yellow mass measuring 2.3 x 2 x 1.3 cm. A appeals representative portion of this tumor is submitted for frozen section consultation (block 1). The attached fibrofatty tissue contains a number of nodules ranging in size from 0.5 to 1 cm. Additional permanent sections are submitted as follows: 2 - proximal mucosal margin, 3 - distal mucosal margin, 47 - area of ulceration and subserosal nodule, 8 & 9 - grossly uninvolved mucosa with possible subserosal nodules, 10 - one subserosal nodule, 11 - multiple subserosal nodules. / AM:jefferson 03/01/20 B - Received in fixative is one container labeled with the patient's name and designated cecum. The specimen consists of a right hemicolectomy specimen consisting of segment of cecum with attached pericolonic adipose tissue, small intestine and appendix. The cecum measures 5 x 4.5 x 3 cm. Segment of small intestine measures 2 cm in length and appendix measures 10 cm in length and 0.6 cm in diameter. Both resection margins are stapled. Sections of the ileocecal valve reveals a barahona, indurated submucosal mass measuring 3.5 x 2 x 3 cm. This mass does not appear to involve the appendiceal opening. The serosal surface overlying the ileocecal valve is inked black. No mucosal lesion is identified in the small and large bowel. Sectioning of the appendix reveal the distal half is filled with fecal material. No lesion is identified. The pericolonic adipose tissue is fixed in lymph node revealing solution. Sdv Pilot/Navigator/Dds Operator sections are submitted as follows: 1-3 - entire appendix (1 containing tip and proximal portion). More dictation will follow after overnight fixation. / SJ:rg 03/01/20 Sections of the tumor underneath the ileocecal valve also reveal a mass that extends up to the appendicular opening. The tumor is 2 cm away from the proximal resection margin and also 2 cm away from the distal resection margin. Sections of the pericolonic adipose tissue reveal multiple nodules. The?largest one of these nodules measures 0.7 cm. Additional appeals representative sections are submitted as?follows: 4-8 - tumor (cassettes 5 & 6 also contains the tumor adjacent to the appendiceal opening), 9?- appeals representative sections of small and large bowel, 10 - proximal and distal resection margin. 11-13 - subserosal nodules. / SJ: 03/02/20 C - Received in fixative is one container labeled with the patient's name and designated proximal ileum, stitch viramontes proximal margin. The specimen consists of a segment of ileum with attached mesentery measuring 5 cm in length. The attached mesenteric tissue measures up to 3 cm in thickness. The specimen is oriented at the proximal margin. The distal margin is stapled. The lumen is filled with fecal material. No mucosal lesion is identified. Also present in the container is a detached piece of adipose tissue most likely mesenteric tissue measuring 8 x 3.5 x 0.5 cm. Sections reveal multiple barahona-yellow nodules in the mesenteric tissue. Also present in the container is a donut-shaped piece of tissue measuring 5 x 3 x 1 cm. A few yenny are noted?in this piece. Sdv Pilot/Navigator/Dds Operator sections are submitted in six cassettes as follows: 1 - resection margin, distal resection margin inked black, 2 & 3 - appeals representative sections with one nodule in the mesenteric tissue, 4??appeals representative sections with second nodule in the mesenteric tissue, 5 - nodule in the mesenteric tissue close to the distal resection margin, 6 - separate piece of donut-shaped tissue. / SJ:rg 03/01/20 D - Received in fixative is one container labeled with the patient's name and designated mid ileum, stitch viramontes proximal end. The specimen consists of a segment of small intestine with attached mesenteric tissue measuring 11 cm in length. The attached mesenteric tissue measures up to 3 cm in width. Both resection margins are stapled. A suture is present at one of the margin identifying the proximal margin. No mucosal lesion is identified. Multiple mesenteric barahona-white nodules are noted. The largest nodule measures up to 1.5 cm in greatest dimension. Also present in the container is a separate piece of donut shaped tissue measuring 1.5 x 1 x 1 cm. Sdv Pilot/Navigator/Dds Operator sections are submitted in seven cassettes as follows: 1 - proximal and distal resection margin, distal resection margin inked black and separate piece of donut-shaped piece of tissue inked blue, 2 - mesenteric nodules (x3), 3-6 - each cassette containing one mesenteric nodule. / SJ:rg 03/01/20 TC:0 CPT: 68633 x4, [id number]
--- NOTE | 2020-02-27 | IMM_PTH ---
PATIENT: HERNÁN BARRAZA LOC: [facility] U#:[id number] AGE/SX: 69/M ROOM: [facility] RE02/27/[address]: Dr. Clyde Vincent MD : 1950 BED: 1 DIS: 03/03/2020 SPEC #: [id number] RECD: 03/03/20 11:15 STATUS: ZARA REQ #: [id number] BASHIR: 02/27/20 00:[address]: Fian Marcos DEPT: IMMUNOHISTOCHEMISTRY RECD BY: Sarina Aviles ENTERED: 03/03/20 11:17 SP TYPE: IMMUNO OTHR DR: MD Dr. Maribel Quiroz MD Dr. Derek Brown DO Dr. Clyde Vincent MD [facility] Tissues: A - Ileum, NOS Procedures: Synapto (add) MSH2 (add) MLH-1 (add) MSH6 (add) Anti-PMS2 (add) CD31 (add) CD56 (add) CEA (add) CHROMO (add) CK19 (add) CK20 (add) CK7 (add) CK8 (add) WALKER-2 (add) KI-67 (add) P53 (add) FACTOR VIII (add) Pankeratin (add) CDX2 (add) HER-2-ARIANA (initial) NSE (add) PHYSICIAN & INSTITUTION [place] [id number] SPECIMEN INFORMATION: Tissue Source: A - Portion of ileum Clinical Info: Small bowel obstruction Specimen Number: [id number] CPT code: 41395, 81237 x20 METHODOLOGY: Deparaffinized sections of prefer/formalin-fixed tissue or PAP/DQ stained slides are incubated with monoclonal/polyclonal antibodies/oligonucleotide probes. Localization is made via biotin free immunoperoxidase method. Appropriate controls are performed and reacted as expected. Results on target cell population are indicated in the following table: RESULTS: ANTIBODY / CLONE RESULT Block A5 AE1-3 (AE1/AE3/PCK26) positive CK7 (OV-TL12/30) positive CK8 (45gwkfA58) positive CK20 (KS20.8) negative CK19 (A53-B/A2.26) positive CD56 (123C3.D5) negative CD31 (OLIVER/70A) negative Factor VIII (R Ag) negative Chromo (LK2H10) negative Synapto (polyclonal) negative NSE Neuron Specific Enolase negative CEA (11-7/TF-3HB-1) positive Ki-67 (30-9) positive, 15% P53 (DO-7) positive, 6% dim WALKER-2 (SP21) positive CDX2 (GQK0945A) negative MLH-1 (M1) positive MSH2 (25D12) positive MSH6 (44) positive PMS2 (IMH8508) positive Her-2neu (CB11) negative These tests were developed and their performance characteristics determined by [facility]. They may not have been cleared or approved by the U.S. Food and Drug Administration. The FDA has determined that such clearance or approval is not necessary. The above immunohistochemical/dualISH markers are ordered and reviewed by the Pathologist. INTERPRETATION: Portion of ileum: Invasive adenocarcinoma. Result of Microsatellite Instability Study: Negative (no loss of mismatch protein; no microsatellite instability detected). AM:jefferson 03/04/20 Case has been reviewed in consultation with Dr. Ramirez who concurs with the above diagnosis. IDC:SJ
[2020-02-27] MEDS: 0.9% Normal Saline 1,000 ML 125 ML IV ×2 (02:07→11:15)
[2020-02-27 05:22] LABS: Absolute Lymphocyte Count 1.46 X10^3/uL (0.83-4.51); Absolute Neutrophil Count 8.6 X10^3/uL (2.0-7.7); Basophil# 0.02 X10^3/uL; Basophil% 0.2 % (0-1); Hematocrit 48.6 % (40-54); Hemoglobin 16.8 g/dL (13.0-16.5); Lymphocyte # 1.46 X10^3/ul (4.0); Lymphocyte % 13.7 % (19-41); Mean Corp Hgb Conc 34.6 g/dL (32-36); Mean Corpuscular Hgb 30.8 pg (27.0-32.0); Mean Platelet Vol. 9.7 fl (6.2-12.0); Monocyte# 0.63 X10^3/uL; Monocyte% 5.9 % (0-10); NRBC Flagged by Analyzer 0 % (0-5); Neutrophil # 8.56 X10^3/uL (2.7-7.7); Platelet Count 155 K/mm3 (150-450); RBC Distribution Width CV 13.2 % (11.6-14.6); RBC Distribution Width SD 42.5 fl (35.1-43.9); Red Blood Count 5.46 M/mm3 (4.6-6.2); White Blood Count 10.7 K/mm3 (4.4-11.0)
[2020-02-27 05:38] LABS: AST(SGOT) 23 U/L (15-37); Alanine Aminotransfer ALT/SGPT 41 U/L (16-61); Albumin, Serum 3.5 g/dL (3.2-5.0); Alkaline Phosphatase 114 U/L (45-117); Anion Gap 10 (5-15); BUN 23 mg/dL (7-18); BUN/Creat Ratio 19.3 RATIO (10-20); Calcium,Total 8.6 mg/dL (8.5-10.1); Chloride 104 mmol/L (98-107); Creatinine, Serum 1.19 mg/dL (0.70-1.30); EST Glomerular Filtration Rate 64 mL/min (>60); Est Glom Filt Rate - Afr Amer 78 mL/min (>60); Estimated Creatinine Clearance 61.52 ml/min; Globulin 3.6 g/dL (2.2-4.2); Glucose 205 mg/dL (74-106); Potassium 4.5 mmol/L (3.5-5.1); Protein, Total 7.1 g/dL (6.4-8.2); Sodium Level 136 mmol/L (136-145)
[2020-02-27] MEDS: Insulin Lispro 100 UNIT/ML INSULN.PEN SC ×4 (05:41→23:59)
[2020-02-27 05:46] LABS: Bedside Glucose 276 mg/dL (70-110)
--- NOTE | 2020-02-27 07:01 | RAD_ITS ---
STUDY: X-RAY - ABDOMEN/PELVIS REASON FOR EXAM: Male, 69 years old. ILEUS. SBO /URI TECHNIQUE: Single AP view of the abdomen / pelvis. COMPARISON: Comparison is made with prior study dated January 07, 2020. FINDINGS: Normal visualized lung bases. There is evidence of a dilated small bowel loops with a decreased amount of gas within the colon. Fecal material is seen within the colon. This may represent either a partial small bowel obstruction or early complete small bowel obstruction. Follow-up is recommended. The visualized liver, spleen and kidneys are grossly normal in size and morphology. Normal soft tissue structures. There are degenerative changes of the visualized lumbar spine. RAD/Abdomen Single View (Portable) IMPRESSION: Dilated small bowel loops with a small amount of fecal material in the colon. Follow-up is recommended. Electronically Signed: Maxx Bradford, at 8:25 EDT , Service support ,
--- NOTE | 2020-02-27 08:06 | PCM.CONS.GEN ---
Reason for Consult Date of Consultation: 02/27/20 History of Present Illness: The patient is a 69 year old M presented to the ER due to abdominal pain starting yesterday. Patient states that he has had somewhat of a cough and his has also had a cough more recently. Patient denies any fevers or body aches. Patient admits to a little bit of nausea denies any vomiting did have 2 small bowel movements yesterday and flatus the day before but currently denies any bowel movements or flatus. Patient did have hyperkalemia on admission labs with a normal white blood cell count, CT abdomen pelvis did show some dilated small bowel again with focalization. Patient was previously in the hospital for possible ileus or small bowel obstruction in early December again with hyperkalemia as well patient small bowel follow-through which made it to the colon within 30 minutes. Patient is never had any abdominal surgeries and did have a colonoscopy a couple years ago which was negative per the patient. Currently patient rates his abdominal pain at 5/10, denies any nausea or vomiting. Past Medical History Past Medical History (Chronic Problems): Chronic Problems (Last Reviewed 03/08/18 @ 10:[address] Bob Paulson MD) History of left heart catheterization (Chronic) 06/20/2005 with subsequent PTCA and STANISLAV @ [facility] : Dr. 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) I22.1 Diabetes mellitus (Chronic) E11.9 nursing home use of drug (Chronic) Z79.899 Hyperlipidemia (Chronic) E78.5 Allergies fenofibrate [From Tricor] Adverse Reaction (Verified 02/26/20 12:00) facial movements thioridazine [From Mellaril] Adverse Reaction (Verified 02/26/20 12:00) facial movements Home Medications: Ambulatory Orders Medication Instructions Recorded aspirin 81 mg tablet,delayed 81 mg PO DAILY tab 01/17/18 release atorvastatin 80 mg tablet 40 mg PO QHS 01/17/18 glipizide 10 mg tablet 10 mg PO BID 01/17/18 lisinopril 5 mg tablet 2.5 mg PO DAILY 01/17/18 donepezil 10 mg tablet 10 mg PO DAILY tab 03/05/18 Cholecalciferol (Vitamin D3) 2,000 unit PO DAILY 01/06/20 [Vitamin D3] Empagliflozin [Jardiance] 25 mg PO DAILY 01/06/20 Fluoxetine HCl [Prozac] 40 mg PO DAILY 01/06/20 Insulin Aspart Protam & Aspart 66 unit SQ DAILY@1700 01/06/20 [Novolog Mix 70-30 Vial] Insulin Aspart Protam & Aspart 100 unit SQ DAILY@0800 01/06/20 [Novolog Mix 70-30 Vial] Levothyroxine Sodium [Synthroid] 125 mcg PO DAILY 01/06/20 Metoprolol Tartrate 50 mg PO BID 01/06/20 Multivitamin [Multiple Vitamins] 1 tab PO DAILY 01/06/20 Omeprazole 20 mg PO DAILY 01/06/20 Risperidone 2 mg PO QHS 01/06/20 Timolol 0.25% [Timoptic] 1 drp EACH EYE DAILY 01/06/20 Travoprost [Travatan Z] 1 drp EACH EYE QHS 01/06/20 hydrOXYzine pamoate capsule 25 mg PO QHS 01/06/20 [Vistaril pamoate capsule] traZODone [Desyrel] 200 mg PO QHS 01/06/20 metFORMIN HCl [Glucophage] 500 mg PO BIDCM #0 01/08/20 Melatonin [Melatin] 3 mg PO QHS PRN 02/26/20 Polyethylene Glycol 3350 [Miralax] 17 gm PO DAILY 02/26/20 Surgical History: Surgical History (Last Reviewed 03/08/18 @ 10:[address] Bob Paulson MD) History of left heart catheterization (Chronic) Z98.890 06/20/2005 with subsequent PTCA and STANISLAV @ [facility] : Dr. Herrear History of percutaneous transluminal coronary angioplasty Z98.61 PTCA & stent placement in posterior descending branch of RCA, using STANISLAV Surgical History: - - vasectomy, heart stent Psychiatric History: No pertinent psych hx Lives: Spouse/ Significant Other Smoking Status: Former smoker Tobacco Use: Non-smoker Alcohol: None Drugs: None - *Family History Maternal Family History: Family History (Last Reviewed 02/26/20 @ 16:10 by CRYSTAL Pendleton) Mother Diabetes Brother CAD (coronary artery disease) Sudden cardiac Myocardial infarction Brother CAD (coronary artery disease) Father No problems noted. Other Family history of coronary artery disease Review of Systems Constitutional: Denies: Chills, Fever Eyes: Denies: Blurred vision HEENT: Denies: Difficulty Swallowing Cardiovascular: Denies: Chest Pain Respiratory: Reports: Cough. Denies: Sputum production Gastrointestinal: Reports: Abdominal Pain, Constipation, Nausea. Denies: Vomiting Genitourinary: Denies: Dysuria Skin: Denies: Rash Neurological: Denies: Blurred vision Psychiatric: Denies: Depression Hematologic/ Lymphatic: Denies: Easy Bleeding Patient Problems: Active and Suspected Problems (Last Reviewed 03/08/18 @ 10:[address] Bob Paulson MD) Small bowel obstruction (Acute) Rhinitis (Acute) Hyperkalemia (Acute) Elevated serum creatinine (Acute) Abdominal pain (Acute) - Physical Exam Vitals/I&O's: Vital Signs Temp Pulse Resp BP Pulse Ox 97.7 F L 73 16 153/67 H 95 02/27/20 05:39 02/27/20 07:00 02/27/20 05:39 02/27/20 05:39 02/27/20 05:39 Oxygen Delivery Method Room Air Weight: 212 lb 11.937 oz Body Mass Index (BMI) 29.8 Intake and Output for Last 24 Hours 02/25/20 02/26/20 02/27/20 23:59 23:59 23:59 Intake Total 1708.33 / 1708.33 777.09 / 777.09 Output Total 275 / 275 500 / 500 Balance 1433.33 / 1433.33 277.09 / 277.09 General: Alert, Oriented x3, Cooperative, No apparent distress HEENT: Atraumatic Lungs: Normal air movement Cardiovascular: Regular rate Abdomen: Soft, Distended - Mild, Tender - Mild diffuse, no peritoneal signs Extremities: No clubbing, No cyanosis, No edema Neurological: Cranial nerves II-XII grossly intact Psych/Mental Status: Normal Affect Microbiology Past 72 Hours 02/26/20 16:05 Mucosa - Nose Respiratory Panel (PCR) - Final Laboratory Results 02/26/20 12:54: WBC 10.0, RBC 5.92, Hgb 17.7 H, Hct 52.9, MCV 89.4, MCH 29.9, MCHC 33.5, RDW Std Deviation 42.3, RDW Coeff of Indra 12.9, Plt Count 175, MPV 9.7, Immature Gran % (Auto) 0.400, Neut % (Auto) 78.5 H, Lymph % (Auto) 16.9 L, Mcnairy % (Auto) 3.9, Eos % (Auto) 0.1, Baso % (Auto) 0.2, Absolute Neuts (auto) 7.9 H, Absolute Lymphs (auto) 1.69, Nucleated RBC % 0 02/26/20 12:54: Sodium 137, Potassium 5.8 H, Chloride 103, Carbon Dioxide 26.0, Anion Gap 8, BUN 22 H, Creatinine 1.52 H, Estim Creat Clear Calc 48.16, Est GFR (MDRD) Af Amer 59 L, Est GFR (MDRD) Non-Af 48 L, BUN/Creatinine Ratio 14.5, Glucose 252 H, Calcium 9.7, Total Bilirubin 0.60, AST 28, ALT 52, Alkaline Phosphatase 122 H, Troponin I < 0.015, Total Protein 8.0, Albumin 4.1, Globulin 3.9, Albumin/Globulin Ratio 1.1, Lipase 67 L 02/26/20 13:35: Urine Color Yellow, Urine Clarity Clear, Urine pH 6.0, Ur Specific [place] 1.020, Urine Protein 30 H, Urine Glucose (UA) 1000 H, Urine Ketones 15 H, Urine Occult Blood Negative, Urine Nitrite Negative, Urine Bilirubin Negative, Urine Urobilinogen Normal, Ur Leukocyte Esterase Negative, Urine RBC 0 SEEN, Urine WBC 0 SEEN, Ur Squamous Epith Cells 0 SEEN, Urine Bacteria 0 SEEN, Urine Mucus 0 SEEN 02/26/20 17:26: Sodium 136, Potassium 5.1, Chloride 104, Carbon Dioxide 21.0, Anion Gap 11, BUN 22 H, Creatinine 1.34 H, Estim Creat Clear Calc 54.63, Est GFR (MDRD) Af Amer 68, Est GFR (MDRD) Non-Af 56 L, BUN/Creatinine Ratio 16.4, Glucose 215 H, Calcium 9.5 02/26/20 23:46: POC Glucose 215 H 02/27/20 04:56: WBC 10.7, RBC 5.46, Hgb 16.8 H, Hct 48.6, MCV 89.0, MCH 30.8, MCHC 34.6, RDW Std Deviation 42.5, RDW Coeff of Indra 13.2, Plt Count 155, MPV 9.7, Immature Gran % (Auto) 0.200, Neut % (Auto) 80.0 H, Lymph % (Auto) 13.7 L, Mcnairy % (Auto) 5.9, Eos % (Auto) 0.0, Baso % (Auto) 0.2, Absolute Neuts (auto) 8.6 H, Absolute Lymphs (auto) 1.46, Nucleated RBC % 0 02/27/20 04:56: Sodium 136, Potassium 4.5, Chloride 104, Carbon Dioxide 22.0, Anion Gap 10, BUN 23 H, Creatinine 1.19, Estim Creat Clear Calc 61.52, Est GFR (MDRD) Af Amer 78, Est GFR (MDRD) Non-Af 64, BUN/Creatinine Ratio 19.3, Glucose 205 H, Calcium 8.6, Total Bilirubin 0.70, AST 23, ALT 41, Alkaline Phosphatase 114, Total Protein 7.1, Albumin 3.5, Globulin 3.6, Albumin/Globulin Ratio 1.0 02/27/20 05:36: POC Glucose 276 H Current Medications Al Hydroxide/Mg Hydroxide (Mylanta Ii) 30 ml PO Q6H PRN PRN PRN Reason: Gastric Burning Dextrose (D50w Syringe) 0 gm IV X1 PRN; Protocol PRN Reason: Hypoglycemia Glucagon () 1 mg IM .X1 PRN PRN Reason: Hypoglycemia Hydralazine HCl (Apresoline Iv) 5 mg IV Q6H PRN PRN PRN Reason: BLOOD PRESSURE Sodium Chloride () 1,000 mls @ 125 mls/hr IV .Q8H ALEX Last Infusion: 02/27/20 06:00 Dose: 125 mls/hr Documented by: Insulin Human Lispro (Humalog Kwikpen (Bkc)) 0 unit SC Q6 ALEX; Protocol Last Admin: 02/27/20 05:41 Dose: 2 units Documented by: Ondansetron HCl (Zofran) 4 mg IV Q8H PRN PRN PRN Reason: NAUSEA/VOMITING Sodium Chloride () 10 - 40 ml IV UD PRN PRN Reason: SALINE FLUSH Assessment/Plan All Active Problems (Last Reviewed 03/08/18 @ 10:[address] Bob Paulson MD) Ileus (Acute) Small bowel obstruction (Acute) Rhinitis (Acute) Hyperkalemia (Acute) Elevated serum creatinine (Acute) Abdominal pain (Acute) Chest pain, precordial (Acute) Family history of coronary artery disease (Acute) 69-year-old male with possible ileus versus bowel obstruction, hyperkalemia?resolved 1. Patient's KUB from this morning did look to have some more dilated small bowel we will plan small bowel follow-through with Gastrografin this morning. Patient does have a nausea or vomiting would recommend placement of NG tube, will hold off right now. Fina Marcos M.D. Pager: [phone] [facility] [address] [place] [address], [facility], [address] [place] [address] Office: [phone] Inpatient E&M: 65476 Init Hosp L2
--- NOTE | 2020-02-27 08:20 | RAD_ITS ---
STUDY: GASTROGRAFIN SMALL BOWEL FOLLOW-THROUGH EXAMINATION. REASON FOR EXAM: Male, 69 years old. Abdomen pain, Hx small bowel in the past, looking for ileus vs SBO TECHNIQUE: Gastrografin was introduced through the indwelling orogastric tube. COMPARISON: None. FINDINGS: On the ball points inspector images, there is evidence of a small bowel dilatation. Minimal amount of gas is seen within the colon. There is gaseous distention of the stomach. The tip of the orogastric tube is seen within the fundal portion of the stomach. There is dilatation of small bowel loops down to the region of the right lower quadrant. No contrast is seen within the colon at this time. This is in keeping with a small bowel obstruction. RAD/Small Bowel Series Only IMPRESSION: Findings in keeping with a small bowel obstruction most likely in the distal ileum. Electronically Signed: Maxx Bradford, at 13:15 EDT , Service support ,
--- NOTE | 2020-02-27 10:25 | PCM.PN.HOSP ---
<Juanjo Degroot - Last Filed: 02/27/20 10:25> Patient Problems: Active and Suspected Problems (Last Reviewed 03/08/18 @ 10:[address] Bob Paulson MD) Small bowel obstruction (Acute) Rhinitis (Acute) Hyperkalemia (Acute) Elevated serum creatinine (Acute) Abdominal pain (Acute) Reason for Visit: abd pain Subjective: ongoing diffuse abd pain, nausea, one episode of emesis this am. no BM, no flatus. pt does not feel any improvement from yesterday. Vitals/I&O's: Vital Signs Temp Pulse Resp BP Pulse Ox 97.7 F L 73 16 153/67 H 95 02/27/20 05:39 02/27/20 07:00 02/27/20 05:39 02/27/20 05:39 02/27/20 05:39 Oxygen Delivery Method Room Air Weight: 212 lb 11.937 oz Body Mass Index (BMI) 29.8 Intake and Output for Last 24 Hours 02/25/20 02/26/20 02/27/20 23:59 23:59 23:59 Intake Total 1708.33 / 1708.33 777.09 / 777.09 Output Total 275 / 275 500 / 500 Balance 1433.33 / 1433.33 277.09 / 277.09 General: Alert, Oriented x3, Cooperative HEENT: Atraumatic, PERRLA, EOMI, Normocephalic Neck: Supple, No JVD, Negative Carotid Bruits Lungs: Clear to auscultation, Normal air movement Cardiovascular: Regular rate, No murmurs Abdomen: Soft, Bowel Sounds Not Present, Distended, Tender Extremities: No edema, Capillary Refill Less than 3 Seconds Skin: No rashes, No breakdown Musculoskeletal: No Tenderness to Palpation of Joints or Extremities Neurological: Cranial nerves II-XII grossly intact Psych/Mental Status: Normal Affect, Appropriate, Alert and oriented to time, place, person, mood and affect Microbiology Past 72 Hours 02/26/20 16:05 Mucosa - Nose Respiratory Panel (PCR) - Final Laboratory Results 02/26/20 12:54: WBC 10.0, RBC 5.92, Hgb 17.7 H, Hct 52.9, MCV 89.4, MCH 29.9, MCHC 33.5, RDW Std Deviation 42.3, RDW Coeff of Indra 12.9, Plt Count 175, MPV 9.7, Immature Gran % (Auto) 0.400, Neut % (Auto) 78.5 H, Lymph % (Auto) 16.9 L, [place] % (Auto) 3.9, Eos % (Auto) 0.1, Baso % (Auto) 0.2, Absolute Neuts (auto) 7.9 H, Absolute Lymphs (auto) 1.69, Nucleated RBC % 0 02/26/20 12:54: Sodium 137, Potassium 5.8 H, Chloride 103, Carbon Dioxide 26.0, Anion Gap 8, BUN 22 H, Creatinine 1.52 H, Estim Creat Clear Calc 48.16, Est GFR (MDRD) Af Amer 59 L, Est GFR (MDRD) Non-Af 48 L, BUN/Creatinine Ratio 14.5, Glucose 252 H, Calcium 9.7, Total Bilirubin 0.60, AST 28, ALT 52, Alkaline Phosphatase 122 H, Troponin I < 0.015, Total Protein 8.0, Albumin 4.1, Globulin 3.9, Albumin/Globulin Ratio 1.1, Lipase 67 L 02/26/20 13:35: Urine Color Yellow, Urine Clarity Clear, Urine pH 6.0, Ur Specific [place] 1.020, Urine Protein 30 H, Urine Glucose (UA) 1000 H, Urine Ketones 15 H, Urine Occult Blood Negative, Urine Nitrite Negative, Urine Bilirubin Negative, Urine Urobilinogen Normal, Ur Leukocyte Esterase Negative, Urine RBC 0 SEEN, Urine WBC 0 SEEN, Ur Squamous Epith Cells 0 SEEN, Urine Bacteria 0 SEEN, Urine Mucus 0 SEEN 02/26/20 17:26: Sodium 136, Potassium 5.1, Chloride 104, Carbon Dioxide 21.0, Anion Gap 11, BUN 22 H, Creatinine 1.34 H, Estim Creat Clear Calc 54.63, Est GFR (MDRD) Af Amer 68, Est GFR (MDRD) Non-Af 56 L, BUN/Creatinine Ratio 16.4, Glucose 215 H, Calcium 9.5 02/26/20 23:46: POC Glucose 215 H 02/27/20 04:56: WBC 10.7, RBC 5.46, Hgb 16.8 H, Hct 48.6, MCV 89.0, MCH 30.8, MCHC 34.6, RDW Std Deviation 42.5, RDW Coeff of Indra 13.2, Plt Count 155, MPV 9.7, Immature Gran % (Auto) 0.200, Neut % (Auto) 80.0 H, Lymph % (Auto) 13.7 L, [place] % (Auto) 5.9, Eos % (Auto) 0.0, Baso % (Auto) 0.2, Absolute Neuts (auto) 8.6 H, Absolute Lymphs (auto) 1.46, Nucleated RBC % 0 02/27/20 04:56: Sodium 136, Potassium 4.5, Chloride 104, Carbon Dioxide 22.0, Anion Gap 10, BUN 23 H, Creatinine 1.19, Estim Creat Clear Calc 61.52, Est GFR (MDRD) Af Amer 78, Est GFR (MDRD) Non-Af 64, BUN/Creatinine Ratio 19.3, Glucose 205 H, Calcium 8.6, Total Bilirubin 0.70, AST 23, ALT 41, Alkaline Phosphatase 114, Total Protein 7.1, Albumin 3.5, Globulin 3.6, Albumin/Globulin Ratio 1.0 02/27/20 05:36: POC Glucose 276 H Current Medications Al Hydroxide/Mg Hydroxide (Mylanta Ii) 30 ml PO Q6H PRN PRN PRN Reason: Gastric Burning Dextrose (D50w Syringe) 0 gm IV X1 PRN; Protocol PRN Reason: Hypoglycemia Glucagon () 1 mg IM .X1 PRN PRN Reason: Hypoglycemia Hydralazine HCl (Apresoline Iv) 5 mg IV Q6H PRN PRN PRN Reason: BLOOD PRESSURE Sodium Chloride () 1,000 mls @ 125 mls/hr IV .Q8H ALEX Last Infusion: 02/27/20 06:00 Dose: 125 mls/hr Documented by: Insulin Human Lispro (Humalog Kwikpen (Bkc)) 0 unit SC Q6 ALEX; Protocol Last Admin: 02/27/20 05:41 Dose: 2 units Documented by: Ondansetron HCl (Zofran) 4 mg IV Q8H PRN PRN PRN Reason: NAUSEA/VOMITING Sodium Chloride () 10 - 40 ml IV UD PRN PRN Reason: SALINE FLUSH STROKE Vital Signs/Narrative: Vital Signs Pulse 02/27/20 07:00 73 Medical Necessity - Tobacco Use Smoking Status: Former smoker Tobacco Use: Non-smoker Assessment/Plan All Active Problems (Last Reviewed 03/08/18 @ 10:[address] Bob Paulson MD) Ileus (Acute) Small bowel obstruction (Acute) Rhinitis (Acute) Hyperkalemia (Acute) Elevated serum creatinine (Acute) Abdominal pain (Acute) Chest pain, precordial (Acute) Family history of coronary artery disease (Acute) 1. SBO - No improvement, no BM / flatus. NPO. Consult [place]. SB follow thru this am. IV fluids, antiemetics and pain control. continue ppi. denies hx abd surgery. 2. Hyperkalemia, mild elevation in creatinine - resolved 3. Rhinitis - resolved no complaints today. 4. DMt2 - SSI 5. HTN - prn hydralazine, hold orals 6. hypothyroidism - synthroid, hold 7. dementia- aricept, hold DVT ppx: SCDs This patient was seen by Juanjo Degroot PA-C under the supervision of Doctor Susannah. <Phil Davalos - Last Filed: 02/27/20 11:17> Subjective: still with abdominal pain. Had a BM with SBFT. Vitals/I&O's: Vital Signs Temp Pulse Resp BP Pulse Ox 36.3 C L 88 16 152/81 H 93 02/27/20 10:25 02/27/20 10:25 02/27/20 10:25 02/27/20 10:25 02/27/20 10:25 Oxygen Delivery Method Room Air Weight: 96.5 kg Body Mass Index (BMI) 29.8 Intake and Output for Last 24 Hours 02/25/20 02/26/20 02/27/20 23:59 23:59 23:59 Intake Total 1708.33 / 1708.33 777.09 / 777.09 Output Total 275 / 275 500 / 500 Balance 1433.33 / 1433.33 277.09 / 277.09 General: Alert, Cooperative HEENT: Atraumatic, Normocephalic Lungs: Clear to auscultation, Normal air movement, No rhonchi, No wheeze Cardiovascular: Regular rate, No murmurs Abdomen: Soft, Bowel Sounds Not Present, Tender Extremities: No edema, No Calf Tenderness Skin: No rashes, No breakdown Musculoskeletal: No Tenderness to Palpation of Joints or Extremities Psych/Mental Status: Normal Affect, Appropriate Microbiology Past 72 Hours 02/26/20 16:05 Mucosa - Nose Respiratory Panel (PCR) - Final Laboratory Results 02/26/20 12:54: WBC 10.0, RBC 5.92, Hgb 17.7 H, Hct 52.9, MCV 89.4, MCH 29.9, MCHC 33.5, RDW Std Deviation 42.3, RDW Coeff of Indra 12.9, Plt Count 175, MPV 9.7, Immature Gran % (Auto) 0.400, Neut % (Auto) 78.5 H, Lymph % (Auto) 16.9 L, [place] % (Auto) 3.9, Eos % (Auto) 0.1, Baso % (Auto) 0.2, Absolute Neuts (auto) 7.9 H, Absolute Lymphs (auto) 1.69, Nucleated RBC % 0 02/26/20 12:54: Sodium 137, Potassium 5.8 H, Chloride 103, Carbon Dioxide 26.0, Anion Gap 8, BUN 22 H, Creatinine 1.52 H, Estim Creat Clear Calc 48.16, Est GFR (MDRD) Af Amer 59 L, Est GFR (MDRD) Non-Af 48 L, BUN/Creatinine Ratio 14.5, Glucose 252 H, Calcium 9.7, Total Bilirubin 0.60, AST 28, ALT 52, Alkaline Phosphatase 122 H, Troponin I < 0.015, Total Protein 8.0, Albumin 4.1, Globulin 3.9, Albumin/Globulin Ratio 1.1, Lipase 67 L 02/26/20 13:35: Urine Color Yellow, Urine Clarity Clear, Urine pH 6.0, Ur Specific [place] 1.020, Urine Protein 30 H, Urine Glucose (UA) 1000 H, Urine Ketones 15 H, Urine Occult Blood Negative, Urine Nitrite Negative, Urine Bilirubin Negative, Urine Urobilinogen Normal, Ur Leukocyte Esterase Negative, Urine RBC 0 SEEN, Urine WBC 0 SEEN, Ur Squamous Epith Cells 0 SEEN, Urine Bacteria 0 SEEN, Urine Mucus 0 SEEN 02/26/20 17:26: Sodium 136, Potassium 5.1, Chloride 104, Carbon Dioxide 21.0, Anion Gap 11, BUN 22 H, Creatinine 1.34 H, Estim Creat Clear Calc 54.63, Est GFR (MDRD) Af Amer 68, Est GFR (MDRD) Non-Af 56 L, BUN/Creatinine Ratio 16.4, Glucose 215 H, Calcium 9.5 02/26/20 23:46: POC Glucose 215 H 02/27/20 04:56: WBC 10.7, RBC 5.46, Hgb 16.8 H, Hct 48.6, MCV 89.0, MCH 30.8, MCHC 34.6, RDW Std Deviation 42.5, RDW Coeff of Indra 13.2, Plt Count 155, MPV 9.7, Immature Gran % (Auto) 0.200, Neut % (Auto) 80.0 H, Lymph % (Auto) 13.7 L, [place] % (Auto) 5.9, Eos % (Auto) 0.0, Baso % (Auto) 0.2, Absolute Neuts (auto) 8.6 H, Absolute Lymphs (auto) 1.46, Nucleated RBC % 0 02/27/20 04:56: Sodium 136, Potassium 4.5, Chloride 104, Carbon Dioxide 22.0, Anion Gap 10, BUN 23 H, Creatinine 1.19, Estim Creat Clear Calc 61.52, Est GFR (MDRD) Af Amer 78, Est GFR (MDRD) Non-Af 64, BUN/Creatinine Ratio 19.3, Glucose 205 H, Calcium 8.6, Total Bilirubin 0.70, AST 23, ALT 41, Alkaline Phosphatase 114, Total Protein 7.1, Albumin 3.5, Globulin 3.6, Albumin/Globulin Ratio 1.0 02/27/20 05:36: POC Glucose 276 H Current Medications Al Hydroxide/Mg Hydroxide (Mylanta Ii) 30 ml PO Q6H PRN PRN PRN Reason: Gastric Burning Dextrose (D50w Syringe) 0 gm IV X1 PRN; Protocol PRN Reason: Hypoglycemia Glucagon () 1 mg IM .X1 PRN PRN Reason: Hypoglycemia Hydralazine HCl (Apresoline Iv) 5 mg IV Q6H PRN PRN PRN Reason: BLOOD PRESSURE Sodium Chloride () 1,000 mls @ 125 mls/hr IV .Q8H ALEX Last Infusion: 02/27/20 06:00 Dose: 125 mls/hr Documented by: Insulin Human Lispro (Humalog Kwikpen (Bkc)) 0 unit SC Q6 ALEX; Protocol Last Admin: 02/27/20 05:41 Dose: 2 units Documented by: Ondansetron HCl (Zofran) 4 mg IV Q8H PRN PRN PRN Reason: NAUSEA/VOMITING Sodium Chloride () 10 - 40 ml IV UD PRN PRN Reason: SALINE FLUSH STROKE Vital Signs/Narrative: Vital Signs Temp Pulse Resp BP Pulse Ox 02/27/20 10:25 36.3 C L 88 16 152/81 H 93 Assessment/Plan Patient seen and examined independently. Data reviewed. I agree with the above note by the physician assistant professor of communication. 1. Small bowel obstruction: Small bowel follow-through performed and results are pending at this time. General surgery following. Not is being any surgical needs but hope this could resolve spontaneously. 2. Possible URI: Patient has some mild symptoms with rhinitis and cough. Patient has no white count no fever so the risk for this being coronavirus is low. Inpatient E&M: 96866 Subs Hosp L2
[2020-02-27 11:21] LABS: Bedside Glucose 296 mg/dL (70-110)
--- NOTE | 2020-02-27 11:43 | CASEMGMT ---
TREVOR SCHWARTZ assessment: Phone interview with pt d/t resp isolation and for initial transition planning/care coordination assessment. TREVOR SCHWARTZ introduced self and role at [facility], pt voices understanding and consents to assessment at this time. Pt is A/Ox4 at this time and answers all questions appropriately at this time. Care providers, pharmacy, and demographics verified at this time. Presentation: Constipation, also c/o dyspnea/cough Admitting dx: SBO, URI PCP: [facility] Preferred Pharmacy: [facility] [facility] A[facility]B, [facility]. Pres[place] Benefit: [place] Living Will/HPOA: Pt states does not have LW/HPOA but would like AD info at this time. LNOK: Delmi Ureña, Living Arrangements: Pt states lives with , Delmi, on main level of 2 story home and states no concerns at home at this time. Pt states is independent with ADL's. Transportation: Pt states drives self and states no transportation concerns at this time. Pt states does take the van transport to the [facility] for appts. DME/HHC: Pt states has a cane and states no need for any further DME at this time. Pt states no hx of HHC or SNF at this time. Pt states no concerns with going home at time of discharge. Pt states is retired. Pt states does not smoke or drink ETOH. Pt states no further concerns/needs at this time. CM to follow PT/OT evals and for any further discharge planning/needs. Advised pt to ask for CM if any further questions/concerns/needs arise, voices understanding. Pt Goal: Home Plan[place] TREVOR SCHWARTZ
--- NOTE | 2020-02-27 11:56 | PCM.PN.BLA ---
Progress Note Patient small bowel father did have dilated small bowels and has not reached: At almost 200 minutes with distended stomach. Did place an NG currently has 400 cc gastric juices out. Patient states his abdominal pains about the same from this morning. Discussed with patient plan for surgery exploratory laparoscopic, possible laparotomy, possible bowel resection including risks not limited to bleeding, infection, injury to another organ including the colon or distal small bowel. Patient had no further questions at this time and was agreeable to proceed. Procedure essential: Yes On 02/10/2020 the [place] Department of Health ([facility]) Public Order signed by [facility] Director Deana Keen M.D., regarding the Management of Non-Essential Surgeries and Procedures for the purpose of preserving Personal Protective Equipment (PPE) and critical hospital capacity and resources within [place] went into effect as of 02/11/2020 at 5:00PM. According to the [facility] Public Order: This action will remain in full force and effect until the State of Emergency declared by the Governor no longer exists or the Director of the [facility] rescinds or modifies this Order. This [facility] order stated all non-essential or elective surgeries and procedures that utilize PPE should be delayed unless there is undue risk to the current or future health of a patient. After reviewing the aforementioned [facility] Public Order and the patients clinical case, I have determined that the scheduled procedure meets the criteria to go forward. Reason for performing procedure: There is a threat to the patient?s life if the surgery or procedure is not performed. Fina Marcos M.D. Pager: [phone] [facility] [address] [place] [address], [address] [place] [address] Office: [phone] STROKE Vital Signs/Narrative: Vital Signs Temp Pulse Resp BP Pulse Ox 02/27/20 10:25 97.4 F L 88 16 152/81 H 93
[2020-02-27] MEDS: Cefazolin 2 GM in 0.9% Normal Saline 100 ML IV (13:45)
--- NOTE | 2020-02-27 14:26 | CHAPLAIN ---
patient and bed were out of room at time of attempted visit
--- NOTE | 2020-02-27 16:31 | CASEMGMT ---
Social Work RNCM notified SW pt was interested in advance directives. Pt currently in surgery. Rack card with AD information and number to call left on pt bedside table. KIERA Wagner
[2020-02-27] MEDS: Bupiv/Epi 0.5% Mpf 30 ML Vial (17:00)
--- NOTE | 2020-02-27 17:00 | OP.PCM_ITS ---
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 Ileum?terminal, 2. Cecum, 3. Proximal ileum stitch viramontes proximal margin, 4. Mid ileum stitch viramontes proximal margin Estimated Blood Loss (mL): 100 cc Fluids Replaced: 1000 cc Description of Procedure: Patient is brought the operating placed supine on operating table. Timeout was completed verifying correct, procedure, positioning, special, prior to procedure. General anesthesia was induced with COVID precautions as patient did have a mild cough per history on presentation. The abdomen was prepped draped in usual sterile fashion. An supraumbilical incision was made with 15 blade scalpel. The fascia was elevated and incised under direct visualization. Entry into the abdomen was confirmed visually. Ridley trocar was placed. The abdomen was insufflated to 15 mmHg. The laparoscope was placed noted to have dilated small bowel. Additional 5 mm trochars were placed suprapubically as well as in the left lower quadrant under direct visualization. No injuries from initial trocar placements. The terminal ileum was noted to be adhesed to the right lower quadrant sidewall. 2 areas of adhesions were especially dense the more proximal one was unable to be freed laparoscopically. The abdomen was allowed to deflate through the smoke evacuator attached to the 5 mm trocar. Initially a lower midline incision was made with 10 blade scalpel and deepened to the fascia with electrocautery. Hemostats were used to grasp the fascia and the fascia was divided carefully with Metzenbaums. Wound protector was placed. There were noted to be multiple hard nodules in the terminal ileum near the cecum which were causing stenosis of the small bowel and these were the areas that were especially adhesed. There are also additional nodules along the antimesenteric border of the small bowel appreciated on palpation. Also a small mass palpated in the mid right lobe of the liver and in the cecum. The terminal ileum was divided with LACHELLE staplers and sent for frozen section. Frozen section confirmed this was an adenocarcinoma likely small bowel in origin. Next the LACHELLE was used to divide the ascending colon, LigaSure impact was used to divide the mesentery and the ileocolic vessels were tied off using 0 silk suture. Additional ileal resection was required as there is also a mass at the base of the mesentery tenting it down making unable to reach without tension the ascending colon. The tinea of the ascending colon and the antimesenteric border of the small bowel was brought together ensuring that there is no twisting of the mesentery. There was good blood supply to the proximal colon and distal small bowel. Enterotomies were made in the ascending colon and small bowel to allow for the LACHELLE stapler. A crotch stitch was placed with a 3-0 silk. TL 60 was used to close the enterotomy/anastomosis. Lembert sutures were placed acros s the anastomosis with 3-0 silk sutures. The thick small bowel contents were able to easily be milked through the anastomosis. The abdomen was irrigated with 2 L of saline. The wound protector was removed. Gloves were changed. The midline incision was closed with running looped 0 PDS x2. Wound was irrigated with saline. Skin was closed with skin yenny, left lower quadrant 5 mm trocar site also closed with a skin staple. Wound was dressed with 4 x 4's and ABD pad and tape. Patient was extubated, Vale was placed in the OR as patient was noted to have a distended bladder. Patient tolerated procedure well and went to PACU in stable condition. - Complications None - Admit VTE Documentation VTE Present on Admission: Yes VTE Mechan Device Prophylaxis: SCD's
[2020-02-27 17:30] LABS: Bedside Glucose 302 mg/dL (70-110)
[2020-02-27] MEDS: Metoprolol Tartrate 50 MG Tablet PO (20:35)
[2020-02-27 22:31] LABS: Bedside Glucose 306 mg/dL (70-110)
[2020-02-28] VITALS (11 sets, daily range): BP systolic 137–168; BP diastolic 76–98; PULSE 89–107; RESP 16–18; TEMP 36.5–37.2; O2SAT 93–98; BMI 29.9
[2020-02-28 00:06] LABS: Bedside Glucose 294 mg/dL (70-110)
[2020-02-28] MEDS: 0.9% Normal Saline 1,000 ML 125 ML IV ×3 (02:36→18:41)
[2020-02-28] MEDS: Morphine 2 MG/ML Syringe IV ×3 (05:34→20:00)
[2020-02-28] MEDS: Insulin Lispro 100 UNIT/ML INSULN.PEN SC ×4 (06:43→23:20)
[2020-02-28 06:55] LABS: Bedside Glucose 205 mg/dL (70-110)
[2020-02-28 07:10] LABS: Absolute Lymphocyte Count 0.83 X10^3/uL (0.83-4.51); Absolute Neutrophil Count 10.3 X10^3/uL (2.0-7.7); Basophil# 0.02 X10^3/uL; Basophil% 0.2 % (0-1); Eosinophil# 0.14 X10^3/uL; Eosinophils% 1.1 % (0-5); Hematocrit 49.1 % (40-54); Hemoglobin 16.7 g/dL (13.0-16.5); Lymphocyte # 0.83 X10^3/ul (4.0); Lymphocyte % 6.8 % (19-41); Mean Corpuscular Hgb 31.2 pg (27.0-32.0); Mean Corpuscular Volume 91.6 fL (80-94); Mean Platelet Vol. 9.7 fl (6.2-12.0); Monocyte# 0.95 X10^3/uL; Monocyte% 7.8 % (0-10); NRBC Flagged by Analyzer 0 % (0-5); Neutrophil # 10.25 X10^3/uL (2.7-7.7); Neutrophil % 83.8 % (47-70); Platelet Count 185 K/mm3 (150-450); RBC Distribution Width CV 13.7 % (11.6-14.6); RBC Distribution Width SD 46.3 fl (35.1-43.9); Red Blood Count 5.36 M/mm3 (4.6-6.2); White Blood Count 12.2 K/mm3 (4.4-11.0)
--- NOTE | 2020-02-28 07:55 | PN.SURG_ITS ---
Patient Problems: Active and Suspected Problems (Last Reviewed 03/08/18 @ 10:[address] Bob Paulson MD) Small bowel obstruction (Acute) Rhinitis (Acute) Hyperkalemia (Acute) Elevated serum creatinine (Acute) Abdominal pain (Acute) Subjective: Patient reports no flatus or nausea or vomiting - Physical Exam Vitals/I&O's: Vital Signs Temp Pulse Resp BP Pulse Ox 97.9 F 107 H 16 147/77 H 98 02/28/20 03:26 02/28/20 03:59 02/28/20 03:26 02/28/20 03:26 02/28/20 03:26 Oxygen Flow Rate (L/min) 2 Oxygen Delivery Method Nasal Cannula Weight: 210 lb 12.191 oz Body Mass Index (BMI) 29.8 Finger Stick Blood Glucose 302 Intake and Output for Last 24 Hours 02/26/20 02/27/20 02/28/20 23:59 23:59 23:59 Intake Total 1708.33 / 1708.33 1875.00 / 1935.00 756.67 / 756.67 Output Total 275 / 275 2550 / 3275 1450 / 1450 Balance 1433.33 / 1433.33 -675.00 / -1340.00 -693.33 / -693.33 General: Alert, Oriented x3 Neck: No JVD Cardiovascular: Tachycardic Abdomen: Soft, Distended, Tender Microbiology Past 72 Hours 02/26/20 16:05 Mucosa - Nose Respiratory Panel (PCR) - Final Laboratory Results 02/27/20 11:13: POC Glucose 296 H 02/27/20 17:25: POC Glucose 302 H 02/27/20 21:44: POC Glucose 306 H 02/27/20 23:58: POC Glucose 294 H 02/28/20 06:05: WBC 12.2 H, RBC 5.36, Hgb 16.7 H, Hct 49.1, MCV 91.6, MCH 31.2, MCHC 34.0, RDW Std Deviation 46.3 H, RDW Coeff of Indra 13.7, Plt Count 185, MPV 9.7, Immature Gran % (Auto) 0.300, Neut % (Auto) 83.8 H, Lymph % (Auto) 6.8 L, [place] % (Auto) 7.8, Eos % (Auto) 1.1, Baso % (Auto) 0.2, Absolute Neuts (auto) 10.3 H, Absolute Lymphs (auto) 0.83, Nucleated RBC % 0 02/28/20 06:05: Sodium Pending, Potassium Pending, Chloride Pending, Carbon Dioxide Pending, Anion Gap Pending, BUN Pending, Creatinine Pending, Est GFR (MDRD) Af Amer Pending, Est GFR (MDRD) Non-Af Pending, BUN/Creatinine Ratio Pending, Glucose Pending, Calcium Pending, Total Bilirubin Pending, AST Pending, ALT Pending, Alkaline Phosphatase Pending, Total Protein Pending, Albumin Pending 02/28/20 06:05: Carcinoembryonic Ag Pending, CA 19-9 Serial Monitor Pending 02/28/20 06:05: CA 19-9 Serial Monitor Pending 02/28/20 06:42: POC Glucose 205 H Current Medications Al Hydroxide/Mg Hydroxide (Mylanta Ii) 30 ml PO Q6H PRN PRN PRN Reason: Gastric Burning Dextrose (D50w Syringe) 0 gm IV X1 PRN; Protocol PRN Reason: Hypoglycemia Glucagon () 1 mg IM .X1 PRN PRN Reason: Hypoglycemia Hydralazine HCl (Apresoline Iv) 5 mg IV Q6H PRN PRN PRN Reason: BLOOD PRESSURE Sodium Chloride () 1,000 mls @ 125 mls/hr IV .Q8H [facility] Last Admin: 02/28/20 02:36 Dose: 125 mls/hr Documented by: Pantoprazole Sodium 40 mg/ (Sodium Chloride) 110 mls @ 330 mls/hr IV Q24 [facility] Last Infusion: 02/27/20 21:01 Dose: Infused Documented by: Insulin Human Lispro (Humalog Kwikpen (Bkc)) 0 unit SC Q6 [facility]; Protocol Last Admin: 02/28/20 06:43 Dose: 1 units Documented by: Metoprolol Tartrate (Lopressor (Beta Mauricio)) 50 mg PO BID [facility] Last Admin: 02/27/20 20:35 Dose: 50 mg Documented by: Morphine Sulfate () 2 - 4 mg IV Q2H PRN PRN PRN Reason: Pain Score 1-10/10 Last Admin: 02/28/20 05:34 Dose: 2 mg Documented by: Morphine Sulfate () 2 - 4 mg IV Q2H PRN PRN PRN Reason: Pain Score 1-10/10 Ondansetron HCl (Zofran) 4 mg IV Q8H PRN PRN PRN Reason: NAUSEA/VOMITING Sodium Chloride () 10 - 40 ml IV UD PRN PRN Reason: SALINE FLUSH Timolol Maleate (Timoptic) 1 drop EACH EYE DAILY [facility] Travoprost (Travatan-Z 0.004% Eye Drop) 1 drop EACH EYE QHS [facility] Medical Necessity - Tobacco Use Smoking Status: Former smoker Tobacco Use: Non-smoker Assessment/Plan All Active Problems (Last Reviewed 03/08/18 @ 10:[address] Bob Paulson MD) Ileus (Acute) Small bowel obstruction (Acute) Rhinitis (Acute) Hyperkalemia (Acute) Elevated serum creatinine (Acute) Abdominal pain (Acute) Chest pain, precordial (Acute) Family history of coronary artery disease (Acute) 69-year-old male status post bowel resection for obstruction 1. Patient had bowel resection due to obstruction. Obstruction is likely cancerous. The patient has an NG tube in and output was 500 cc yesterday with another 150 overnight. He is not passing any flatus and he is still distended. I will keep the NG to low intermittent wall suction with okay to clamp for meds. Continue IV fluids and medical management. Once the patient starts having flatus and his abdominal distention is decreased I will remove the NG and start a diet. Raj De MD Pager: [facility] [address] [place] [address], [address] [place] [address] Office:
[2020-02-28 08:03] LABS: ALB/GLOB Ratio 0.9 RATIO (0.9-2.4); AST(SGOT) 24 U/L (15-37); Alanine Aminotransfer ALT/SGPT 31 U/L (16-61); Albumin, Serum 3.1 g/dL (3.2-5.0); Alkaline Phosphatase 83 U/L (45-117); Anion Gap 9 (5-15); BUN 27 mg/dL (7-18); BUN/Creat Ratio 19.6 RATIO (10-20); Calcium,Total 8.2 mg/dL (8.5-10.1); Chloride 113 mmol/L (98-107); Creatinine, Serum 1.38 mg/dL (0.70-1.30); EST Glomerular Filtration Rate 54 mL/min (>60); Est Glom Filt Rate - Afr Amer 65 mL/min (>60); Estimated Creatinine Clearance 53.05 ml/min; Globulin 3.4 g/dL (2.2-4.2); Glucose 268 mg/dL (74-106); Potassium 4.2 mmol/L (3.5-5.1); Protein, Total 6.5 g/dL (6.4-8.2); Sodium Level 145 mmol/L (136-145)
[2020-02-28] MEDS: Metoprolol Tartrate 50 MG Tablet PO ×2 (11:31→21:10)
[2020-02-28] MEDS: Timolol 0.25% 5ML OPTH.BTL 1 DRP EACH EYE (11:32)
--- NOTE | 2020-02-28 11:55 | PN_ITS ---
<Juanjo Degroot - Last Filed: 02/28/20 11:55> Patient Problems: Active and Suspected Problems (Last Reviewed 03/08/18 @ 10:[address] Bob Paulson MD) Small bowel obstruction (Acute) Rhinitis (Acute) Hyperkalemia (Acute) Elevated serum creatinine (Acute) Abdominal pain (Acute) Reason for Visit: sbo Subjective: pt underwent exp lap wth dr. Marcos yesterday, small bowel, mesentery, cecal, liver masses. Pt stable in pcu, ng tube in place. ongoing abd pain, nausea no vomiting. no BM or flatus. Vitals/I&O's: Vital Signs Temp Pulse Resp BP Pulse Ox 97.9 F 105 H 16 147/77 H 93 02/28/20 03:26 02/28/20 11:31 02/28/20 03:26 02/28/20 03:26 02/28/20 07:49 Oxygen Flow Rate (L/min) 1.5 Oxygen Delivery Method Nasal Cannula Weight: 210 lb 12.191 oz Body Mass Index (BMI) 29.8 Finger Stick Blood Glucose 302 Intake and Output for Last 24 Hours 02/26/20 02/27/20 02/28/20 23:59 23:59 23:59 Intake Total 1708.33 / 1708.33 1875.00 / 1935.00 1756.67 / 1756.67 Output Total 275 / 275 2550 / 3275 1450 / 1450 Balance 1433.33 / 1433.33 -675.00 / -1340.00 306.67 / 306.67 General: Alert, Oriented x3, Cooperative HEENT: Atraumatic, PERRLA, EOMI, Normocephalic Neck: Supple, No JVD, Negative Carotid Bruits Lungs: Clear to auscultation, Normal air movement Cardiovascular: Regular rate, No murmurs Abdomen: Soft, Bowel Sounds Not Present, Tender Extremities: No edema, Capillary Refill Less than 3 Seconds Skin: No rashes, No breakdown Musculoskeletal: No Tenderness to Palpation of Joints or Extremities Neurological: Cranial nerves II-XII grossly intact Psych/Mental Status: Normal Affect, Appropriate, Alert and oriented to time, place, person, mood and affect Microbiology Past 72 Hours 02/26/20 16:05 Mucosa - Nose Respiratory Panel (PCR) - Final Laboratory Results 02/27/20 17:25: POC Glucose 302 H 02/27/20 21:44: POC Glucose 306 H 02/27/20 23:58: POC Glucose 294 H 02/28/20 06:05: WBC 12.2 H, RBC 5.36, Hgb 16.7 H, Hct 49.1, MCV 91.6, MCH 31.2, MCHC 34.0, RDW Std Deviation 46.3 H, RDW Coeff of Indra 13.7, Plt Count 185, MPV 9.7, Immature Gran % (Auto) 0.300, Neut % (Auto) 83.8 H, Lymph % (Auto) 6.8 L, [place] % (Auto) 7.8, Eos % (Auto) 1.1, Baso % (Auto) 0.2, Absolute Neuts (auto) 10.3 H, Absolute Lymphs (auto) 0.83, Nucleated RBC % 0 02/28/20 06:05: Sodium 145, Potassium 4.2, Chloride 113 H, Carbon Dioxide 23.0, Anion Gap 9, BUN 27 H, Creatinine 1.38 H, Estim Creat Clear Calc 53.05, Est GFR (MDRD) Af Amer 65, Est GFR (MDRD) Non-Af 54 L, BUN/Creatinine Ratio 19.6, Glucose 268 H, Calcium 8.2 L, Total Bilirubin 0.80, AST 24, ALT 31, Alkaline Phosphatase 83, Total Protein 6.5, Albumin 3.1 L, Globulin 3.4, Albumin/Globulin Ratio 0.9 02/28/20 06:05: Carcinoembryonic Ag Pending, CA 19-9 Serial Monitor Pending 02/28/20 06:05: CA 19-9 Serial Monitor Pending 02/28/20 06:42: POC Glucose 205 H Current Medications Al Hydroxide/Mg Hydroxide (Mylanta Ii) 30 ml PO Q6H PRN PRN PRN Reason: Gastric Burning Dextrose (D50w Syringe) 0 gm IV X1 PRN; Protocol PRN Reason: Hypoglycemia Glucagon () 1 mg IM .X1 PRN PRN Reason: Hypoglycemia Hydralazine HCl (Apresoline Iv) 5 mg IV Q6H PRN PRN PRN Reason: BLOOD PRESSURE Sodium Chloride () 1,000 mls @ 125 mls/hr IV .Q8H [facility] Last Admin: 02/28/20 11:31 Dose: 125 mls/hr Documented by: Pantoprazole Sodium 40 mg/ (Sodium Chloride) 110 mls @ 330 mls/hr IV Q24 [facility] Last Admin: 02/28/20 11:32 Dose: 330 mls/hr Documented by: Insulin Human Lispro (Humalog Kwikpen (Bkc)) 0 unit SC Q6 [facility]; Protocol Last Admin: 02/28/20 06:43 Dose: 1 units Documented by: Latanoprost (Xalatan Opthalmic) 1 drop EACH EYE QHS [facility] Metoprolol Tartrate (Lopressor (Beta Mauricio)) 50 mg PO BID [facility] Last Admin: 02/28/20 11:31 Dose: 50 mg Documented by: Morphine Sulfate () 2 - 4 mg IV Q2H PRN PRN PRN Reason: Pain Score 1-10/10 Last Admin: 02/28/20 05:34 Dose: 2 mg Documented by: Morphine Sulfate () 2 - 4 mg IV Q2H PRN PRN PRN Reason: Pain Score 1-10/10 Ondansetron HCl (Zofran) 4 mg IV Q8H PRN PRN PRN Reason: NAUSEA/VOMITING Sodium Chloride () 10 - 40 ml IV UD PRN PRN Reason: SALINE FLUSH Timolol Maleate (Timoptic) 1 drop EACH EYE DAILY [facility] Last Admin: 02/28/20 11:32 Dose: 1 drop Documented by: STROKE Vital Signs/Narrative: Vital Signs Pulse 02/28/20 11:31 105 H Medical Necessity - Tobacco Use Smoking Status: Former smoker Tobacco Use: Non-smoker Assessment/Plan All Active Problems (Last Reviewed 03/08/18 @ 10:[address] Bbo Paulson MD) Ileus (Acute) Small bowel obstruction (Acute) Rhinitis (Acute) Hyperkalemia (Acute) Elevated serum creatinine (Acute) Abdominal pain (Acute) Chest pain, precordial (Acute) Family history of coronary artery disease (Acute) 1. SBO - s/p exp lap with ileocecectomy POD#1 - multiple lesions, cecal, mesentery, liver. [id number] pending. increased WBC and Cr. Continue NG tube, IV fluids, NPO. Oncology referral at [place]. 2. mild elevation in creatinine - continue IV fluids. 3. Rhinitis - resolved 4. DMt2 - SSI q6 5. HTN - prn hydralazine, hold orals 6. hypothyroidism - synthroid, hold 7. dementia- aricept, hold DVT ppx: SCDs This patient was seen by Juanjo Degroot PA-C under the supervision of Doctor Susannah. <Phil Davalos - Last Filed: 02/28/20 13:10> Vitals/I&O's: Vital Signs Temp Pulse Resp BP Pulse Ox 37.2 C 105 H 18 137/81 H 95 02/28/20 09:25 02/28/20 11:31 02/28/20 09:25 02/28/20 09:25 02/28/20 09:25 Oxygen Flow Rate (L/min) 2 Oxygen Delivery Method Nasal Cannula Weight: 95.6 kg Body Mass Index (BMI) 29.8 Finger Stick Blood Glucose 302 Intake and Output for Last 24 Hours 02/26/20 02/27/20 02/28/20 23:59 23:59 23:59 Intake Total 1708.33 / 1708.33 1875.00 / 1935.00 1926.67 / 1926.67 Output Total 275 / 275 2550 / 3275 1900 / 1900 Balance 1433.33 / 1433.33 -675.00 / -1340.00 26.67 / 26.67 General: Alert, Cooperative HEENT: Atraumatic, Normocephalic Neck: No Nodes, Trachea Midline Lungs: Clear to auscultation, Normal air movement Cardiovascular: Regular rate, Regular Rhythm, Normal S1, Normal S2, No murmurs Abdomen: Soft, Bowel Sounds Not Present, Tender Extremities: No edema, No Calf Tenderness Skin: No rashes, No breakdown Psych/Mental Status: Normal Affect, Appropriate Microbiology Past 72 Hours 02/26/20 16:05 Mucosa - Nose Respiratory Panel (PCR) - Final Laboratory Results 02/27/20 17:25: POC Glucose 302 H 02/27/20 21:44: POC Glucose 306 H 02/27/20 23:58: POC Glucose 294 H 02/28/20 06:05: WBC 12.2 H, RBC 5.36, Hgb 16.7 H, Hct 49.1, MCV 91.6, MCH 31.2, MCHC 34.0, RDW Std Deviation 46.3 H, RDW Coeff of Indra 13.7, Plt Count 185, MPV 9.7, Immature Gran % (Auto) 0.300, Neut % (Auto) 83.8 H, Lymph % (Auto) 6.8 L, [place] % (Auto) 7.8, Eos % (Auto) 1.1, Baso % (Auto) 0.2, Absolute Neuts (auto) 10.3 H, Absolute Lymphs (auto) 0.83, Nucleated RBC % 0 02/28/20 06:05: Sodium 145, Potassium 4.2, Chloride 113 H, Carbon Dioxide 23.0, Anion Gap 9, BUN 27 H, Creatinine 1.38 H, Estim Creat Clear Calc 53.05, Est GFR (MDRD) Af Amer 65, Est GFR (MDRD) Non-Af 54 L, BUN/Creatinine Ratio 19.6, Glucose 268 H, Calcium 8.2 L, Total Bilirubin 0.80, AST 24, ALT 31, Alkaline Phosphatase 83, Total Protein 6.5, Albumin 3.1 L, Globulin 3.4, Albumin/Globulin Ratio 0.9 02/28/20 06:05: Carcinoembryonic Ag Pending, CA 19-9 Serial Monitor Pending 02/28/20 06:05: CA 19-9 Serial Monitor Pending 02/28/20 06:05: Phosphorus 2.3 L, Magnesium 2.0 02/28/20 06:42: POC Glucose 205 H 02/28/20 11:40: POC Glucose 238 H Current Medications Al Hydroxide/Mg Hydroxide (Mylanta Ii) 30 ml PO Q6H PRN PRN PRN Reason: Gastric Burning Dextrose (D50w Syringe) 0 gm IV X1 PRN; Protocol PRN Reason: Hypoglycemia Glucagon () 1 mg IM .X1 PRN PRN Reason: Hypoglycemia Hydralazine HCl (Apresoline Iv) 5 mg IV Q6H PRN PRN PRN Reason: BLOOD PRESSURE Sodium Chloride () 1,000 mls @ 125 mls/hr IV .Q8H [facility] Last Admin: 02/28/20 11:31 Dose: 125 mls/hr Documented by: Pantoprazole Sodium 40 mg/ (Sodium Chloride) 110 mls @ 330 mls/hr IV Q24 [facility] Last Infusion: 02/28/20 12:59 Dose: Infused Documented by: Insulin Human Lispro (Humalog Kwikpen (Bkc)) 0 unit SC Q6 [facility]; Protocol Last Admin: 02/28/20 11:41 Dose: 2 units Documented by: Latanoprost (Xalatan Opthalmic) 1 drop EACH EYE QHS [facility] Metoprolol Tartrate (Lopressor (Beta Mauricio)) 50 mg PO BID [facility] Last Admin: 02/28/20 11:31 Dose: 50 mg Documented by: Morphine Sulfate () 2 - 4 mg IV Q2H PRN PRN PRN Reason: Pain Score 1-10/10 Last Admin: 02/28/20 05:34 Dose: 2 mg Documented by: Morphine Sulfate () 2 - 4 mg IV Q2H PRN PRN PRN Reason: Pain Score 1-10/10 Ondansetron HCl (Zofran) 4 mg IV Q8H PRN PRN PRN Reason: NAUSEA/VOMITING Sodium Chloride () 10 - 40 ml IV UD PRN PRN Reason: SALINE FLUSH Timolol Maleate (Timoptic) 1 drop EACH EYE DAILY [facility] Last Admin: 02/28/20 11:32 Dose: 1 drop Documented by: STROKE Vital Signs/Narrative: Vital Signs Temp Pulse Resp BP Pulse Ox 02/28/20 11:31 105 H 02/28/20 09:25 37.2 C 105 H 18 137/81 H 95 Assessment/Plan Patient seen and examined independently. Data reviewed. I agree with the above note by the physician sales office assistant. 1. 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 2. Possible URI: Improving. Patient has some mild symptoms with rhinitis and cough. Patient has no white count no fever so the risk for this being coronavirus is low. Inpatient E&M: 20062 Subs Hosp L2
[2020-02-28 12:06] LABS: Bedside Glucose 238 mg/dL (70-110)
[2020-02-28 12:44] LABS: Phosphorus 2.3 mg/dL (2.5-4.9)
[2020-02-28 18:40] LABS: Bedside Glucose 189 mg/dL (70-110)
[2020-02-28] MEDS: hydrALAZINE 20 MG/ML Vial 5 MG IV (19:59)
[2020-02-28] MEDS: Latanoprost 0.005% 1 Bottle 1 DRP EACH EYE (21:10)
[2020-02-28 23:25] LABS: Bedside Glucose 216 mg/dL (70-110)
[2020-02-29] VITALS (20 sets, daily range): BP systolic 158–183; BP diastolic 84–94; PULSE 79–101; RESP 18–40; TEMP 36.4–37.3; O2SAT 87–95
[2020-02-29] MEDS: Morphine 2 MG/ML Syringe IV (02:01)
[2020-02-29] MEDS: 0.9% Normal Saline 1,000 ML 125 ML IV (02:03)
[2020-02-29] MEDS: Insulin Lispro 100 UNIT/ML INSULN.PEN SC ×4 (05:24→23:49)
[2020-02-29 05:36] LABS: Bedside Glucose 208 mg/dL (70-110)
[2020-02-29 07:32] LABS: Absolute Lymphocyte Count 1.14 X10^3/uL (0.83-4.51); Absolute Neutrophil Count 6.7 X10^3/uL (2.0-7.7); Basophil# 0.02 X10^3/uL; Basophil% 0.2 % (0-1); Eosinophil# 0.13 X10^3/uL; Eosinophils% 1.5 % (0-5); Hematocrit 47.2 % (40-54); Hemoglobin 15.8 g/dL (13.0-16.5); Lymphocyte # 1.14 X10^3/ul (4.0); Mean Corp Hgb Conc 33.5 g/dL (32-36); Mean Corpuscular Hgb 31.2 pg (27.0-32.0); Mean Corpuscular Volume 93.1 fL (80-94); Mean Platelet Vol. 9.4 fl (6.2-12.0); Monocyte# 0.74 X10^3/uL; Monocyte% 8.4 % (0-10); NRBC Flagged by Analyzer 0 % (0-5); Neutrophil # 6.74 X10^3/uL (2.7-7.7); Neutrophil % 76.7 % (47-70); POSITIVE MORPHOLOGY YES; Platelet Count 157 K/mm3 (150-450); RBC Distribution Width SD 47.4 fl (35.1-43.9); Red Blood Count 5.07 M/mm3 (4.6-6.2); White Blood Count 8.8 K/mm3 (4.4-11.0)
[2020-02-29 07:33] LABS: Differential Indicated SCAN CRITERIA MET
[2020-02-29 07:49] LABS: Differential Comment SCANNED
[2020-02-29 07:52] LABS: Reactive Lymphocyte 1+
[2020-02-29 08:03] LABS: Anion Gap 8 (5-15); BUN 33 mg/dL (7-18); BUN/Creat Ratio 29.7 RATIO (10-20); Calcium,Total 8.6 mg/dL (8.5-10.1); Chloride 119 mmol/L (98-107); Creatinine, Serum 1.11 mg/dL (0.70-1.30); EST Glomerular Filtration Rate 70 mL/min (>60); Est Glom Filt Rate - Afr Amer 84 mL/min (>60); Estimated Creatinine Clearance 65.95 ml/min; Glucose 209 mg/dL (74-106); Potassium 3.8 mmol/L (3.5-5.1); Sodium Level 149 mmol/L (136-145)
--- NOTE | 2020-02-29 08:04 | PCM.PN.SRG ---
Patient Problems: Active and Suspected Problems (Last Reviewed 03/08/18 @ 10:[address] Bob Paulson MD) Small bowel obstruction (Acute) Rhinitis (Acute) Hyperkalemia (Acute) Elevated serum creatinine (Acute) Abdominal pain (Acute) Subjective: Patient reports no flatus. - Physical Exam Vitals/I&O's: Vital Signs Temp Pulse Resp BP Pulse Ox 97.8 F 87 40 H 168/84 H 93 02/29/20 07:41 02/29/20 07:41 02/29/20 07:41 02/29/20 07:41 02/29/20 07:41 Oxygen Flow Rate (L/min) 1.5 Oxygen Delivery Method Nasal Cannula Weight: 212 lb 8.41 oz Body Mass Index (BMI) 29.8 Finger Stick Blood Glucose 302 Intake and Output for Last 24 Hours 02/27/20 02/28/20 02/29/20 23:59 23:59 23:59 Intake Total 1875.00 / 1935.00 2950.42 / 2950.42 950.83 / 950.83 Output Total 2550 / 3275 3200 / 3200 750 / 750 Balance -675.00 / -1340.00 -249.58 / -249.58 200.83 / 200.83 General: Alert, Oriented x3 Neck: No JVD Abdomen: Soft, Distended, Tender Microbiology Past 72 Hours 02/26/20 16:05 Mucosa - Nose Respiratory Panel (PCR) - Final Laboratory Results 02/28/20 06:05: Phosphorus 2.3 L, Magnesium 2.0 02/28/20 11:40: POC Glucose 238 H 02/28/20 18:32: POC Glucose 189 H 02/28/20 23:18: POC Glucose 216 H 02/29/20 05:22: POC Glucose 208 H 02/29/20 06:51: WBC 8.8, RBC 5.07, Hgb 15.8, Hct 47.2, MCV 93.1, MCH 31.2, MCHC 33.5, RDW Std Deviation 47.4 H, RDW Coeff of Indra 14.0, Plt Count 157, MPV 9.4, Immature Gran % (Auto) 0.200, Neut % (Auto) 76.7 H, Lymph % (Auto) 13.0 L, [place] % (Auto) 8.4, Eos % (Auto) 1.5, Baso % (Auto) 0.2, Absolute Neuts (auto) 6.7, Absolute Lymphs (auto) 1.14, Nucleated RBC % 0, Differential Comment SCANNED, Reactive Lymphocytes 1+ 02/29/20 06:51: Sodium 149 H, Potassium 3.8, Chloride 119 H, Carbon Dioxide 22.0, Anion Gap 8, BUN 33 H, Creatinine 1.11, Estim Creat Clear Calc 65.95, Est GFR (MDRD) Af Amer 84, Est GFR (MDRD) Non-Af 70, BUN/Creatinine Ratio 29.7 H, Glucose 209 H, Calcium 8.6 Current Medications Al Hydroxide/Mg Hydroxide (Mylanta Ii) 30 ml PO Q6H PRN PRN PRN Reason: Gastric Burning Dextrose (D50w Syringe) 0 gm IV X1 PRN; Protocol PRN Reason: Hypoglycemia Glucagon () 1 mg IM .X1 PRN PRN Reason: Hypoglycemia Hydralazine HCl (Apresoline Iv) 5 mg IV Q6H PRN PRN PRN Reason: BLOOD PRESSURE Last Admin: 02/28/20 19:59 Dose: 5 mg Documented by: Sodium Chloride () 1,000 mls @ 125 mls/hr IV .Q8H [facility] Last Admin: 02/29/20 02:03 Dose: 125 mls/hr Documented by: Pantoprazole Sodium 40 mg/ (Sodium Chloride) 110 mls @ 330 mls/hr IV Q24 [facility] Last Infusion: 02/28/20 12:59 Dose: Infused Documented by: Insulin Human Lispro (Humalog Kwikpen (Bkc)) 0 unit SC Q6 [facility]; Protocol Last Admin: 02/29/20 05:24 Dose: 1 units Documented by: Latanoprost (Xalatan Opthalmic) 1 drop EACH EYE QHS [facility] Last Admin: 02/28/20 21:10 Dose: 1 drop Documented by: Metoprolol Tartrate (Lopressor (Beta Mauricio)) 50 mg PO BID [facility] Last Admin: 02/28/20 21:10 Dose: 50 mg Documented by: Morphine Sulfate () 2 - 4 mg IV Q2H PRN PRN PRN Reason: Pain Score 1-10/10 Last Admin: 02/29/20 02:01 Dose: 2 mg Documented by: Morphine Sulfate () 2 - 4 mg IV Q2H PRN PRN PRN Reason: Pain Score 1-10/10 Ondansetron HCl (Zofran) 4 mg IV Q8H PRN PRN PRN Reason: NAUSEA/VOMITING Sodium Chloride () 10 - 40 ml IV UD PRN PRN Reason: SALINE FLUSH Timolol Maleate (Timoptic) 1 drop EACH EYE DAILY [facility] Last Admin: 02/28/20 11:32 Dose: 1 drop Documented by: Medical Necessity - Tobacco Use Smoking Status: Former smoker Tobacco Use: Non-smoker Assessment/Plan All Active Problems (Last Reviewed 03/08/18 @ 10:[address] Bob Paulson MD) Ileus (Acute) Small bowel obstruction (Acute) Rhinitis (Acute) Hyperkalemia (Acute) Elevated serum creatinine (Acute) Abdominal pain (Acute) Chest pain, precordial (Acute) Family history of coronary artery disease (Acute) 69-year-old male status post bowel resection 1. Patient having postoperative ileus. Patient still distended with no flatus. 2. The patient's NG tube is maroon in color. It only had 350 cc overnight. I do not believe it is removing much bilious material. He is on a PPI. I will remove the NG as it appears to be causing trauma to the lining of the stomach. Continue n.p.o. and PPI. Hold off 1 more day before starting DVT prophylaxis. Raj De MD Pager: [facility] [address] [place] [address], [address] [place] [address] Office:
[2020-02-29] MEDS: Timolol 0.25% 5ML OPTH.BTL 1 DRP EACH EYE (09:38)
[2020-02-29] MEDS: Metoprolol Tartrate 50 MG Tablet PO ×2 (09:38→21:02)
[2020-02-29] MEDS: 0.9% Normal Saline 1,000 ML 75 ML IV (10:15)
--- NOTE | 2020-02-29 11:26 | PCM.PN.HOSP ---
<Juanjo Degroot - Last Filed: 02/29/20 11:26> Patient Problems: Active and Suspected Problems (Last Reviewed 03/08/18 @ 10:[address] Bob Paulson MD) Small bowel obstruction (Acute) Rhinitis (Acute) Hyperkalemia (Acute) Elevated serum creatinine (Acute) Abdominal pain (Acute) Reason for Visit: Abd pain Subjective: Ongoing nausea and diffuse abdominal pain. Minimal improvement since yesterday. Pt reports small amount of flatus this AM. No BM. No fever/chills. Pt minimally active, needs OOB today. Vitals/I&O's: Vital Signs Temp Pulse Resp BP Pulse Ox 97.8 F 87 40 H 168/84 H 87 02/29/20 07:41 02/29/20 09:38 02/29/20 07:41 02/29/20 09:38 02/29/20 10:50 Oxygen Flow Rate (L/min) 1.5 Oxygen Delivery Method Nasal Cannula Weight: 212 lb 8.41 oz Body Mass Index (BMI) 29.8 Finger Stick Blood Glucose 302 Intake and Output for Last 24 Hours 02/27/20 02/28/20 02/29/20 23:59 23:59 23:59 Intake Total 1875.00 / 1935.00 2950.42 / 2950.42 2060.83 / 2060.83 Output Total 2550 / 3275 3200 / 3200 750 / 750 Balance -675.00 / -1340.00 -249.58 / -249.58 1310.83 / 1310.83 General: Alert, Oriented x3, Cooperative HEENT: Atraumatic, PERRLA, EOMI, Normocephalic Neck: Supple, No JVD, Negative Carotid Bruits Lungs: Clear to auscultation, Diminished Cardiovascular: Irregular Rate, Tachycardic Abdomen: Bowel Sounds Not Present, Distended Extremities: No edema, Capillary Refill Less than 3 Seconds Skin: No rashes, No breakdown Musculoskeletal: No Tenderness to Palpation of Joints or Extremities, - - s/p R BKA Neurological: Cranial nerves II-XII grossly intact Psych/Mental Status: Normal Affect, Appropriate, Alert and oriented to time, place, person, mood and affect Microbiology Past 72 Hours 02/26/20 16:05 Mucosa - Nose Respiratory Panel (PCR) - Final Laboratory Results 02/28/20 06:05: Phosphorus 2.3 L, Magnesium 2.0 02/28/20 11:40: POC Glucose 238 H 02/28/20 18:32: POC Glucose 189 H 02/28/20 23:18: POC Glucose 216 H 02/29/20 05:22: POC Glucose 208 H 02/29/20 06:51: WBC 8.8, RBC 5.07, Hgb 15.8, Hct 47.2, MCV 93.1, MCH 31.2, MCHC 33.5, RDW Std Deviation 47.4 H, RDW Coeff of Indra 14.0, Plt Count 157, MPV 9.4, Immature Gran % (Auto) 0.200, Neut % (Auto) 76.7 H, Lymph % (Auto) 13.0 L, [place] % (Auto) 8.4, Eos % (Auto) 1.5, Baso % (Auto) 0.2, Absolute Neuts (auto) 6.7, Absolute Lymphs (auto) 1.14, Nucleated RBC % 0, Differential Comment SCANNED, Reactive Lymphocytes 1+ 02/29/20 06:51: Sodium 149 H, Potassium 3.8, Chloride 119 H, Carbon Dioxide 22.0, Anion Gap 8, BUN 33 H, Creatinine 1.11, Estim Creat Clear Calc 65.95, Est GFR (MDRD) Af Amer 84, Est GFR (MDRD) Non-Af 70, BUN/Creatinine Ratio 29.7 H, Glucose 209 H, Calcium 8.6 Current Medications Al Hydroxide/Mg Hydroxide (Mylanta Ii) 30 ml PO Q6H PRN PRN PRN Reason: Gastric Burning Dextrose (D50w Syringe) 0 gm IV X1 PRN; Protocol PRN Reason: Hypoglycemia Glucagon () 1 mg IM .X1 PRN PRN Reason: Hypoglycemia Hydralazine HCl (Apresoline Iv) 5 mg IV Q6H PRN PRN PRN Reason: BLOOD PRESSURE Last Admin: 02/28/20 19:59 Dose: 5 mg Documented by: Pantoprazole Sodium 40 mg/ (Sodium Chloride) 110 mls @ 330 mls/hr IV Q24 ALEX Last Infusion: 02/29/20 09:57 Dose: Infused Documented by: Sodium Chloride () 1,000 mls @ 75 mls/hr IV .[id number] ALEX Last Admin: 02/29/20 10:15 Dose: 75 mls/hr Documented by: Insulin Human Lispro (Humalog Kwikpen (Bkc)) 0 unit SC Q6 [facility]; Protocol Last Admin: 02/29/20 05:24 Dose: 1 units Documented by: Latanoprost (Xalatan Opthalmic) 1 drop EACH EYE QHS [facility] Last Admin: 02/28/20 21:10 Dose: 1 drop Documented by: Metoprolol Tartrate (Lopressor (Beta Mauricio)) 50 mg PO BID [facility] Last Admin: 02/29/20 09:38 Dose: 50 mg Documented by: Morphine Sulfate () 2 - 4 mg IV Q2H PRN PRN PRN Reason: Pain Score 1-10/10 Last Admin: 02/29/20 02:01 Dose: 2 mg Documented by: Morphine Sulfate () 2 - 4 mg IV Q2H PRN PRN PRN Reason: Pain Score 1-10/10 Ondansetron HCl (Zofran) 4 mg IV Q8H PRN PRN PRN Reason: NAUSEA/VOMITING Sodium Chloride () 10 - 40 ml IV UD PRN PRN Reason: SALINE FLUSH Timolol Maleate (Timoptic) 1 drop EACH EYE DAILY [facility] Last Admin: 02/29/20 09:38 Dose: 1 drop Documented by: STROKE Vital Signs/Narrative: Vital Signs Temp Pulse Resp BP Pulse Ox 02/29/20 10:50 87 02/29/20 09:38 87 168/84 H 02/29/20 07:41 97.8 F 87 40 H 168/84 H 93 Medical Necessity - Tobacco Use Smoking Status: Former smoker Tobacco Use: Non-smoker Assessment/Plan All Active Problems (Last Reviewed 03/08/18 @ 10:[address] Bob Paulson MD) Ileus (Acute) Small bowel obstruction (Acute) Rhinitis (Acute) Hyperkalemia (Acute) Elevated serum creatinine (Acute) Abdominal pain (Acute) Chest pain, precordial (Acute) Family history of coronary artery disease (Acute) 1. SBO - s/p exp lap with ileocecectomy POD#2 - multiple lesions, cecal, mesentery, liver. ca19-19/cea pending. increased WBC and Cr. NG out per surgery with concern for gastric irritation. Hgb stable. Continue PPI. Continue NPO today, possibly fluid trial tomorrow. Na shift from 145-->149, recheck in AM, continue NS for now. Leukocytosis resolved. Afebrile. Pt to be out of bed to chair today and ambulated TID. 2. mild elevation in creatinine - improved. continue IVF as above. 3. Rhinitis - resolved 4. DMt2 - SSI q6 5. HTN - prn hydralazine, hold orals 6. hypothyroidism - synthroid, hold 7. dementia- aricept, hold DVT ppx: SCDs This patient was seen by Juanjo Degroot PA-C under the supervision of Doctor Susannah. <Phil Davalos - Last Filed: 02/29/20 12:00> Subjective: No flatus nor BM. Still with abdominal distention. Noted by nursing to be tachypneic with short shallow breaths. Vitals/I&O's: Vital Signs Temp Pulse Resp BP Pulse Ox 36.6 C 87 40 H 168/84 H 87 02/29/20 07:41 02/29/20 09:38 02/29/20 07:41 02/29/20 09:38 02/29/20 10:50 Oxygen Flow Rate (L/min) 1.5 Oxygen Delivery Method Nasal Cannula Weight: 96.4 kg Body Mass Index (BMI) 29.8 Finger Stick Blood Glucose 302 Intake and Output for Last 24 Hours 02/27/20 02/28/20 02/29/20 23:59 23:59 23:59 Intake Total 1875.00 / 1935.00 2950.42 / 2950.42 2060.83 / 2060.83 Output Total 2550 / 3275 3200 / 3200 750 / 750 Balance -675.00 / -1340.00 -249.58 / -249.58 1310.83 / 1310.83 General: Alert, Cooperative HEENT: Atraumatic, Normocephalic Neck: No Nodes, Trachea Midline Lungs: Clear to auscultation, Diminished Cardiovascular: Irregular Rate, Tachycardic Abdomen: Hypoactive Bowel Sounds, Distended Extremities: No edema, No Calf Tenderness Skin: No rashes, No breakdown Musculoskeletal: - Neurological: Cranial nerves II-XII grossly intact Psych/Mental Status: Appropriate, Flat Affect Microbiology Past 72 Hours 02/26/20 16:05 Mucosa - Nose Respiratory Panel (PCR) - Final Laboratory Results 02/28/20 06:05: Phosphorus 2.3 L, Magnesium 2.0 02/28/20 11:40: POC Glucose 238 H 02/28/20 18:32: POC Glucose 189 H 02/28/20 23:18: POC Glucose 216 H 02/29/20 05:22: POC Glucose 208 H 02/29/20 06:51: WBC 8.8, RBC 5.07, Hgb 15.8, Hct 47.2, MCV 93.1, MCH 31.2, MCHC 33.5, RDW Std Deviation 47.4 H, RDW Coeff of Indra 14.0, Plt Count 157, MPV 9.4, Immature Gran % (Auto) 0.200, Neut % (Auto) 76.7 H, Lymph % (Auto) 13.0 L, [place] % (Auto) 8.4, Eos % (Auto) 1.5, Baso % (Auto) 0.2, Absolute Neuts (auto) 6.7, Absolute Lymphs (auto) 1.14, Nucleated RBC % 0, Differential Comment SCANNED, Reactive Lymphocytes 1+ 02/29/20 06:51: Sodium 149 H, Potassium 3.8, Chloride 119 H, Carbon Dioxide 22.0, Anion Gap 8, BUN 33 H, Creatinine 1.11, Estim Creat Clear Calc 65.95, Est GFR (MDRD) Af Amer 84, Est GFR (MDRD) Non-Af 70, BUN/Creatinine Ratio 29.7 H, Glucose 209 H, Calcium 8.6 Current Medications Al Hydroxide/Mg Hydroxide (Mylanta Ii) 30 ml PO Q6H PRN PRN PRN Reason: Gastric Burning Dextrose (D50w Syringe) 0 gm IV X1 PRN; Protocol PRN Reason: Hypoglycemia Glucagon () 1 mg IM .X1 PRN PRN Reason: Hypoglycemia Hydralazine HCl (Apresoline Iv) 5 mg IV Q6H PRN PRN PRN Reason: BLOOD PRESSURE Last Admin: 02/28/20 19:59 Dose: 5 mg Documented by: Pantoprazole Sodium 40 mg/ (Sodium Chloride) 110 mls @ 330 mls/hr IV Q24 ALEX Last Infusion: 02/29/20 09:57 Dose: Infused Documented by: Sodium Chloride () 1,000 mls @ 75 mls/hr IV .[id number] [facility] Last Admin: 02/29/20 10:15 Dose: 75 mls/hr Documented by: Insulin Human Lispro (Humalog Kwikpen (Bkc)) 0 unit SC Q6 [facility]; Protocol Last Admin: 02/29/20 05:24 Dose: 1 units Documented by: Latanoprost (Xalatan Opthalmic) 1 drop EACH EYE QHS [facility] Last Admin: 02/28/20 21:10 Dose: 1 drop Documented by: Metoprolol Tartrate (Lopressor (Beta Mauricio)) 50 mg PO BID [facility] Last Admin: 02/29/20 09:38 Dose: 50 mg Documented by: Morphine Sulfate () 2 - 4 mg IV Q2H PRN PRN PRN Reason: Pain Score 1-10/10 Last Admin: 02/29/20 02:01 Dose: 2 mg Documented by: Morphine Sulfate () 2 - 4 mg IV Q2H PRN PRN PRN Reason: Pain Score 1-10/10 Ondansetron HCl (Zofran) 4 mg IV Q8H PRN PRN PRN Reason: NAUSEA/VOMITING Sodium Chloride () 10 - 40 ml IV UD PRN PRN Reason: SALINE FLUSH Timolol Maleate (Timoptic) 1 drop EACH EYE DAILY [facility] Last Admin: 02/29/20 09:38 Dose: 1 drop Documented by: STROKE Vital Signs/Narrative: Vital Signs Pulse BP Pulse Ox 02/29/20 10:50 87 02/29/20 09:38 87 168/84 H Assessment/Plan Patient seen and examined independently. Data reviewed. I agree with the above note by the physician facility assistant. 1. 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 2. Possible URI: Improving. Patient has some mild symptoms with rhinitis and cough. Patient has no white count no fever so the risk for this being coronavirus is low. 3. 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 Inpatient E&M: [id number] [facility] Hosp L2
[2020-02-29 12:36] LABS: Bedside Glucose 239 mg/dL (70-110)
[2020-02-29] MEDS: Lactated Ringers 1,000 ML 75 ML IV (13:13)
[2020-02-29] MEDS: 0.9% Saline Lock 10 ML Syringe IV (15:41)
[2020-02-29] MEDS: hydrALAZINE 20 MG/ML Vial 5 MG IV ×2 (15:41→23:31)
[2020-02-29 18:05] LABS: Bedside Glucose 245 mg/dL (70-110)
[2020-02-29] MEDS: Latanoprost 0.005% 1 Bottle 1 DRP EACH EYE (21:02)
[2020-03-01] VITALS (26 sets, daily range): BP systolic 143–203; BP diastolic 75–125; PULSE 80–101; RESP 20–36; TEMP 36.4–37.8; O2SAT 92–96
[2020-03-01 00:05] LABS: Bedside Glucose 229 mg/dL (70-110)
[2020-03-01] MEDS: Lactated Ringers 1,000 ML 75 ML IV (00:49)
[2020-03-01] MEDS: Morphine 2 MG/ML Syringe IV ×5 (00:49→18:44)
[2020-03-01] MEDS: 0.9% Saline Lock 10 ML Syringe IV ×3 (00:53→11:14)
[2020-03-01] MEDS: Insulin Lispro 100 UNIT/ML INSULN.PEN SC ×4 (06:10→23:07)
[2020-03-01 06:28] LABS: Anion Gap 13 (5-15); BUN 38 mg/dL (7-18); BUN/Creat Ratio 35.8 RATIO (10-20); Calcium,Total 8.6 mg/dL (8.5-10.1); Chloride 121 mmol/L (98-107); Creatinine, Serum 1.06 mg/dL (0.70-1.30); EST Glomerular Filtration Rate 73 mL/min (>60); Est Glom Filt Rate - Afr Amer 89 mL/min (>60); Estimated Creatinine Clearance 69.06 ml/min; Glucose 245 mg/dL (74-106); Potassium 3.7 mmol/L (3.5-5.1); Sodium Level 152 mmol/L (136-145)
[2020-03-01] MEDS: hydrALAZINE 20 MG/ML Vial 5 MG IV ×2 (06:30→13:04)
[2020-03-01 07:15] LABS: Bedside Glucose 246 mg/dL (70-110)
--- NOTE | 2020-03-01 09:16 | PCM.PN.SRG ---
Patient Problems: Active and Suspected Problems (Last Reviewed 03/08/18 @ 10:[address] Bob Paulson MD) Small bowel obstruction (Acute) Rhinitis (Acute) Hyperkalemia (Acute) Elevated serum creatinine (Acute) Abdominal pain (Acute) Subjective: denies flatus, N/V, pain controlled with pain meds, pt did ambulate yesterday in [place] - Physical Exam Vitals/I&O's: Vital Signs Temp Pulse Resp BP Pulse Ox 100.1 F H 90 36 H 180/82 H 94 03/01/20 08:34 03/01/20 08:34 03/01/20 08:34 03/01/20 08:34 03/01/20 08:34 Oxygen Flow Rate (L/min) 2 Oxygen Delivery Method Nasal Cannula Weight: 210 lb 5.136 oz Body Mass Index (BMI) 29.8 Finger Stick Blood Glucose 302 Intake and Output for Last 24 Hours 02/28/20 02/29/20 03/01/20 23:59 23:59 23:59 Intake Total 2950.42 / 2950.42 2717.08 / 2717.08 870 / 870 Output Total 3200 / 3200 2525 / 2525 325 / 325 Balance -249.58 / -249.58 192.08 / 192.08 545 / 545 General: Alert, Cooperative Cardiovascular: Regular rate Abdomen: Soft, Distended - mild-mod, Tender - diffuse, mild, near incision c/d/i with yenny Microbiology Past 72 Hours 02/26/20 16:05 Mucosa - Nose Respiratory Panel (PCR) - Final Laboratory Results 02/29/20 12:23: POC Glucose 239 H 02/29/20 18:01: POC Glucose 245 H 02/29/20 23:45: POC Glucose 229 H 03/01/20 05:58: Sodium 152 H, Potassium 3.7, Chloride 121 H, Carbon Dioxide 18.0 L, Anion Gap 13, BUN 38 H, Creatinine 1.06, Estim Creat Clear Calc 69.06, Est GFR (MDRD) Af Amer 89, Est GFR (MDRD) Non-Af 73, BUN/Creatinine Ratio 35.8 H, Glucose 245 H, Calcium 8.6 03/01/20 06:07: POC Glucose 246 H Current Medications Al Hydroxide/Mg Hydroxide (Mylanta Ii) 30 ml PO Q6H PRN PRN PRN Reason: Gastric Burning Dextrose (D50w Syringe) 0 gm IV X1 PRN; Protocol PRN Reason: Hypoglycemia Glucagon () 1 mg IM .X1 PRN PRN Reason: Hypoglycemia Hydralazine HCl (Apresoline Iv) 5 mg IV Q6H PRN PRN PRN Reason: BLOOD PRESSURE Last Admin: 03/01/20 06:30 Dose: 5 mg Documented by: Pantoprazole Sodium 40 mg/ (Sodium Chloride) 110 mls @ 330 mls/hr IV Q24 ALEX Last Infusion: 02/29/20 09:57 Dose: Infused Documented by: Lactated Ringer's () 1,000 mls @ 75 mls/hr IV .[id number] [facility] Last Admin: 03/01/20 00:49 Dose: 75 mls/hr Documented by: Insulin Human Lispro (Humalog Kwikpen (Bkc)) 0 unit SC Q6 [facility]; Protocol Last Admin: 03/01/20 06:10 Dose: 2 units Documented by: Latanoprost (Xalatan Opthalmic) 1 drop EACH EYE QHS [facility] Last Admin: 02/29/20 21:02 Dose: 1 drop Documented by: Metoprolol Tartrate (Lopressor (Beta Mauricio)) 50 mg PO BID [facility] Last Admin: 02/29/20 21:02 Dose: 50 mg Documented by: Morphine Sulfate () 2 - 4 mg IV Q2H PRN PRN PRN Reason: Pain Score 1-10/10 Last Admin: 03/01/20 00:49 Dose: 2 mg Documented by: Morphine Sulfate () 2 - 4 mg IV Q2H PRN PRN PRN Reason: Pain Score 1-10/10 Ondansetron HCl (Zofran) 4 mg IV Q8H PRN PRN PRN Reason: NAUSEA/VOMITING Sodium Chloride () 10 - 40 ml IV UD PRN PRN Reason: SALINE FLUSH Last Admin: 03/01/20 06:37 Dose: 10 ml Documented by: Timolol Maleate (Timoptic) 1 drop EACH EYE DAILY [facility] Last Admin: 02/29/20 09:38 Dose: 1 drop Documented by: Medical Necessity - Tobacco Use Smoking Status: Former smoker Tobacco Use: Non-smoker Assessment/Plan All Active Problems (Last Reviewed 03/08/18 @ 10:[address] Bob Paulson MD) Ileus (Acute) Small bowel obstruction (Acute) Rhinitis (Acute) Hyperkalemia (Acute) Elevated serum creatinine (Acute) Abdominal pain (Acute) Chest pain, precordial (Acute) Family history of coronary artery disease (Acute) 69-year-old male POD3 s/p ex lap, ileocectomy due to adenocarcinoma likely SB, with cecal mass, SB mesentery mass, liver mass palpated 1. NPO until +flatus, await final pathology 2. encouraged amb in halls 3x day, IS use, up to chair 3. temp 100.1 -pt has not be using IS 4. hypernatremia- IVF changed yesterday from NS to LR Fina Marcos M.D. Pager: [phone] [facility] [address] [place] [address], [facility], [address] [place] [id number] Office: [phone]
--- NOTE | 2020-03-01 09:42 | CASEMGMT ---
Updated clinicals faxed to [facility] at this time. This RN CM spoke with Noemi at [facility] and she states that pt is 70% service connected with travel benefits but that they would not transfer at this time d/t tachypnea. This RN LANA will continue to fax updates and be in contact with Noemi at [facility]. Noemi was aware that pt was willing to transfer, voices understanding. Noemi's contact info [phone] ext [phone]. Arlen MURRAY CM
--- NOTE | 2020-03-01 09:55 | RAD_ITS ---
STUDY: X-RAY CHEST REASON FOR EXAM: Male, 69 years old. SOB TECHNIQUE: AP and lateral views of the chest. COMPARISON: Comparison is made with prior study dated February 26, 2020. FINDINGS: EKG electrodes are seen. Minimal increased markings at the lung bases likely more prominent on the right side suggestive of mild bibasilar atelectasis. There is no demonstrated pleural abnormality. Normal size heart. Normal mediastinum and candy. Normal visualized pulmonary arteries. Normal visualized aortic arch and descending thoracic aorta. There are diffuse degenerative changes of the visualized thoracic spine. Normal visualized ribs, clavicles, and shoulders. There is no demonstrated abnormality of the visualized soft tissue structures of the upper abdomen. RAD/Chest PA and Lateral IMPRESSION: Minimal degree of increased markings at the lung bases slightly more prominent on the right side suggestive of bibasilar atelectasis. Electronically Signed: Maxx Bradford, at 10:15 EDT , Service support ,
[2020-03-01 10:01] LABS: Absolute Neutrophil Count 4.8 X10^3/uL (2.0-7.7); Basophil# 0.01 X10^3/uL; Basophil% 0.2 % (0-1); Eosinophil# 0.16 X10^3/uL; Eosinophils% 2.5 % (0-5); Hematocrit 48.6 % (40-54); Hemoglobin 16.3 g/dL (13.0-16.5); Lymphocyte % 15.4 % (19-41); Mean Corp Hgb Conc 33.5 g/dL (32-36); Mean Corpuscular Hgb 30.9 pg (27.0-32.0); Mean Platelet Vol. 9.9 fl (6.2-12.0); Monocyte# 0.47 X10^3/uL; Monocyte% 7.2 % (0-10); NRBC Flagged by Analyzer 0 % (0-5); Neutrophil # 4.81 X10^3/uL (2.7-7.7); Neutrophil % 74.1 % (47-70); Platelet Count 165 K/mm3 (150-450); RBC Distribution Width CV 14.1 % (11.6-14.6); Red Blood Count 5.28 M/mm3 (4.6-6.2); White Blood Count 6.5 K/mm3 (4.4-11.0)
[2020-03-01] MEDS: Metoprolol Tartrate 50 MG Tablet PO ×2 (11:14→22:59)
[2020-03-01] MEDS: Metoprolol Tartrate 5 MG/5 ML Vial IV (11:14)
[2020-03-01] MEDS: 0.45% Normal Saline 1,000 ML 100 ML IV (11:14)
[2020-03-01] MEDS: Timolol 0.25% 5ML OPTH.BTL 1 DRP EACH EYE (11:21)
[2020-03-01] MEDS: Acetaminophen 325 MG Tablet 650 MG PO (11:49)
[2020-03-01] MEDS: Levothyroxine 125 MCG Tablet PO (11:49)
[2020-03-01 12:06] LABS: Bedside Glucose 240 mg/dL (70-110)
[2020-03-01 14:39] LABS: Anion Gap 9 (5-15); BUN 46 mg/dL (7-18); BUN/Creat Ratio 35.1 RATIO (10-20); Calcium,Total 8.9 mg/dL (8.5-10.1); Chloride 126 mmol/L (98-107); Creatinine, Serum 1.31 mg/dL (0.70-1.30); EST Glomerular Filtration Rate 57 mL/min (>60); Est Glom Filt Rate - Afr Amer 69 mL/min (>60); Estimated Creatinine Clearance 55.88 ml/min; Glucose 298 mg/dL (74-106); Potassium 3.7 mmol/L (3.5-5.1); Sodium Level 155 mmol/L (136-145)
--- NOTE | 2020-03-01 15:06 | CHAPLAIN ---
Type of Pastoral Visit _x__ Initial Visit ___ Follow-up Visit ___ On-call Visit ___ General Patient Visit ___ Spiritual Assessment ___ Family Conference ___ Bereavement ___ Rapid Response ___ Code Blue ___ Other (describe below) Pastoral Care Referral From _x__ Patient ___ Family ___ Nurse ___ Physician ___ Practical Nursing Teacher ___ S Iron Worker ___ Other (describe below) Sacrament/Intervention _x__ Active listening ___ Anointing ___ Sikhism ___ Bereavement ___ Communion _x__ Eileen exploration ___ ___ Life review _x__ Prayer ___ Reconciliation ___ Sacrament of Sick _x__ Supportive presence ___ Wedding ___ Other (describe below) Pastoral Comments
--- NOTE | 2020-03-01 15:06 | PCM.PN.HOSP ---
<Juanjo Degroot - Last Filed: 03/01/20 15:06> Patient Problems: Active and Suspected Problems (Last Reviewed 03/08/18 @ 10:[address] Bob Paulson MD) Small bowel obstruction (Acute) Rhinitis (Acute) Hyperkalemia (Acute) Elevated serum creatinine (Acute) Abdominal pain (Acute) Reason for Visit: Abdominal pain Subjective: Patient up to chair at bedside, out of bed. Small amount of flatus this morning, no bowel movement. Still nauseous, no vomiting today. Tolerating oral meds with sips. He had a low-grade fever of 100.1 this morning, mild shortness of breath and cough, chest x-ray consistent with atelectasis. Vitals/I&O's: Vital Signs Temp Pulse Resp BP Pulse Ox 99.1 F 83 26 H 160/81 H 96 03/01/20 14:35 03/01/20 14:35 03/01/20 14:35 03/01/20 14:35 03/01/20 14:35 Oxygen Flow Rate (L/min) 2 Oxygen Delivery Method Nasal Cannula Weight: 210 lb 5.136 oz Body Mass Index (BMI) 29.8 Finger Stick Blood Glucose 302 Intake and Output for Last 24 Hours 02/28/20 02/29/20 03/01/20 23:59 23:59 23:59 Intake Total 2950.42 / 2950.42 2717.08 / 2717.08 1774.17 / 1774.17 Output Total 3200 / 3200 2525 / 2525 1050 / 1050 Balance -249.58 / -249.58 192.08 / 192.08 724.17 / 724.17 General: Alert, Oriented x3, Cooperative HEENT: Atraumatic, PERRLA, EOMI, Normocephalic Neck: Supple, No JVD, Negative Carotid Bruits Lungs: Clear to auscultation, Normal air movement Cardiovascular: Regular rate, No murmurs Abdomen: Soft, Bowel Sounds Not Present, Tender Extremities: No edema, Capillary Refill Less than 3 Seconds Skin: No rashes, No breakdown Musculoskeletal: No Tenderness to Palpation of Joints or Extremities Neurological: Cranial nerves II-XII grossly intact Psych/Mental Status: Normal Affect, Appropriate, Alert and oriented to time, place, person, mood and affect Laboratory Results 02/29/20 18:01: POC Glucose 245 H 02/29/20 23:45: POC Glucose 229 H 03/01/20 05:58: Sodium 152 H, Potassium 3.7, Chloride 121 H, Carbon Dioxide 18.0 L, Anion Gap 13, BUN 38 H, Creatinine 1.06, Estim Creat Clear Calc 69.06, Est GFR (MDRD) Af Amer 89, Est GFR (MDRD) Non-Af 73, BUN/Creatinine Ratio 35.8 H, Glucose 245 H, Calcium 8.6 03/01/20 05:58: WBC 6.5, RBC 5.28, Hgb 16.3, Hct 48.6, MCV 92.0, MCH 30.9, MCHC 33.5, RDW Std Deviation 48.0 H, RDW Coeff of Indra 14.1, Plt Count 165, MPV 9.9, Immature Gran % (Auto) 0.600, Neut % (Auto) 74.1 H, Lymph % (Auto) 15.4 L, Ogle % (Auto) 7.2, Eos % (Auto) 2.5, Baso % (Auto) 0.2, Absolute Neuts (auto) 4.8, Absolute Lymphs (auto) 1.00, Nucleated RBC % 0 03/01/20 06:07: POC Glucose 246 H 03/01/20 11:50: POC Glucose 240 H 03/01/20 14:10: Sodium 155 H, Potassium 3.7, Chloride 126 H, Carbon Dioxide 20.0 L, Anion Gap 9, BUN 46 H, Creatinine 1.31 H, Estim Creat Clear Calc 55.88, Est GFR (MDRD) Af Amer 69, Est GFR (MDRD) Non-Af 57 L, BUN/Creatinine Ratio 35.1 H, Glucose 298 H, Calcium 8.9 Current Medications Acetaminophen (Tylenol) 650 mg PO Q6H PRN PRN PRN Reason: FEVER Last Admin: 03/01/20 11:49 Dose: 650 mg Documented by: Al Hydroxide/Mg Hydroxide (Mylanta Ii) 30 ml PO Q6H PRN PRN PRN Reason: Gastric Burning Atorvastatin Calcium (Lipitor) 40 mg PO QHS [facility] Dextrose (D50w Syringe) 0 gm IV X1 PRN; Protocol PRN Reason: Hypoglycemia Donepezil HCl (Aricept) 10 mg PO DAILY [facility] Fluoxetine HCl (Prozac) 40 mg PO DAILY [facility] Glucagon () 1 mg IM .X1 PRN PRN Reason: Hypoglycemia Hydralazine HCl (Apresoline Iv) 5 mg IV Q6H PRN PRN PRN Reason: BLOOD PRESSURE Last Admin: 03/01/20 13:04 Dose: 5 mg Documented by: Hydroxyzine Pamoate (Vistaril Pamoate Capsule) 25 mg PO QHS [facility] Pantoprazole Sodium 40 mg/ (Sodium Chloride) 110 mls @ 330 mls/hr IV Q24 [facility] Last Infusion: 03/01/20 11:45 Dose: Infused Documented by: Sodium Chloride () 1,000 mls @ 100 mls/hr IV .Q10H [facility] Last Infusion: 03/01/20 11:45 Dose: 100 mls/hr Documented by: Insulin Human Lispro (Humalog Kwikpen (Bkc)) 0 unit SC Q6 [facility]; Protocol Last Admin: 03/01/20 11:51 Dose: 2 units Documented by: Latanoprost (Xalatan Opthalmic) 1 drop EACH EYE QHS [facility] Last Admin: 02/29/20 21:02 Dose: 1 drop Documented by: Levothyroxine Sodium (Synthroid) 125 mcg PO DAILY@0600 [facility] Last Admin: 03/01/20 11:49 Dose: 125 mcg Documented by: Lisinopril (Zestril) 2.5 mg PO DAILY [facility] Melatonin (Melatonin) 3 mg PO QHS PRN PRN Reason: SLEEP Metoprolol Tartrate (Lopressor (Beta Mauricio)) 50 mg PO BID [facility] Last Admin: 03/01/20 11:14 Dose: 50 mg Documented by: Metoprolol Tartrate (Lopressor (Beta Mauricio)) 5 mg IV Q6H PRN PRN PRN Reason: BLOOD PRESSURE Last Admin: 03/01/20 11:14 Dose: 5 mg Documented by: Morphine Sulfate () 2 - 4 mg IV Q2H PRN PRN PRN Reason: Pain Score 1-10/10 Last Admin: 03/01/20 13:05 Dose: 2 mg Documented by: Morphine Sulfate () 2 - 4 mg IV Q2H PRN PRN PRN Reason: Pain Score 1-10/10 Ondansetron HCl (Zofran) 4 mg IV Q8H PRN PRN PRN Reason: NAUSEA/VOMITING Risperidone (Risperdal) 2 mg PO QHS [facility] Sodium Chloride () 10 - 40 ml IV UD PRN PRN Reason: SALINE FLUSH Last Admin: 03/01/20 11:14 Dose: 10 ml Documented by: Timolol Maleate (Timoptic) 1 drop EACH EYE DAILY [facility] Last Admin: 03/01/20 11:21 Dose: 1 drop Documented by: Trazodone HCl (Desyrel) 200 mg PO QHS [facility] Vital Signs/Narrative: Vital Signs Temp Pulse Resp BP BP Pulse Ox 03/01/20 14:35 99.1 F 83 26 H 160/81 H 96 03/01/20 13:04 90 03/01/20 12:49 99.1 F 90 26 H 179/89 H 96 03/01/20 11:40 99.3 F H 95 202/96 H 03/01/20 11:33 86 03/01/20 11:26 92 178/100 H 03/01/20 11:14 88 03/01/20 11:12 88 26 H 177/95 H 96 Medical Necessity - Tobacco Use Smoking Status: Former smoker Tobacco Use: Non-smoker Assessment/Plan All Active Problems (Last Reviewed 03/08/18 @ 10:[address] Bob Paulson MD) Ileus (Acute) Small bowel obstruction (Acute) Rhinitis (Acute) Hyperkalemia (Acute) Elevated serum creatinine (Acute) Abdominal pain (Acute) Chest pain, precordial (Acute) Family history of coronary artery disease (Acute) 1. SBO - s/p exp lap with ileocecectomy POD#2 - multiple lesions, cecal, mesentery, liver. ca19-19/cea pending.Hgb stable. Continue PPI as he had some irritation with an NG tube. -Chest x-ray with atelectasis, low-grade fever 100.1, suspect atelectasis. Push incentive spirometer. Continue to push ambulation, out of bed at least 3 times daily. -Oral meds resumed with sips. -No leukocytosis. -Patient placed on 0.45% saline due to increasing hypernatremia, repeat sodium is increased, will change to D5W with frequent BMPs. 2. mild elevation in creatinine - improved. continue IVF as above. 3. Rhinitis - resolved 4. DMt2 - SSI q6 5. HTN - prn hydralazine, metoprolol, hold SACHIN 6. hypothyroidism - synthroid 7. dementia- aricept, prozac, risperdal, trazodone. pt having difficulty sleeping. DVT ppx: SCDs This patient was seen by Juanjo Degroot PA-C under the supervision of Doctor Carlton <CarltonClyde - Last Filed: 03/01/20 16:04> Reason for Visit: Abdominal pain. SBO. Status post laparotomy. Objective: Low-grade fever, 100.1 Fahrenheit one time in the morning today. Reflex tachycardia, 100/min. Blood pressure elevated 180/88. Short of breath with tachypnea 36/min on 2 L of oxygen. In the morning respiratory 26/min. Vitals/I&O's: Vital Signs Temp Pulse Resp BP Pulse Ox 99.1 F 83 26 H 160/81 H 96 03/01/20 14:35 03/01/20 14:35 03/01/20 14:35 03/01/20 14:35 03/01/20 14:35 Oxygen Flow Rate (L/min) 2 Oxygen Delivery Method Nasal Cannula Weight: 210 lb 5.136 oz Body Mass Index (BMI) 29.8 Finger Stick Blood Glucose 302 Intake and Output for Last 24 Hours 02/28/20 02/29/20 03/01/20 23:59 23:59 23:59 Intake Total 2950.42 / 2950.42 2717.08 / 2717.08 1774.17 / 1774.17 Output Total 3200 / 3200 2525 / 2525 1050 / 1050 Balance -249.58 / -249.58 192.08 / 192.08 724.17 / 724.17 General: Alert, Oriented x3, Cooperative HEENT: Atraumatic, PERRLA, EOMI, Normocephalic Neck: Supple, No JVD, Negative Carotid Bruits Lungs: Clear to auscultation, No rhonchi, No wheeze, No rales, Diminished Cardiovascular: Regular rate, Regular Rhythm, Normal S1, Normal S2, No murmurs Abdomen: Soft, Bowel Sounds Not Present, Distended - Mild postop distention, Tender Extremities: No edema, Capillary Refill Less than 3 Seconds Skin: No rashes, No breakdown Musculoskeletal: No Tenderness to Palpation of Joints or Extremities, Arthritic Changes Neurological: Cranial nerves II-XII grossly intact, Deep Tendon Reflexes 2+/4 and Symmetrical, Neuro grossly intact Psych/Mental Status: Normal Affect, Appropriate Laboratory Results 02/29/20 18:01: POC Glucose 245 H 02/29/20 23:45: POC Glucose 229 H 03/01/20 05:58: Sodium 152 H, Potassium 3.7, Chloride 121 H, Carbon Dioxide 18.0 L, Anion Gap 13, BUN 38 H, Creatinine 1.06, Estim Creat Clear Calc 69.06, Est GFR (MDRD) Af Amer 89, Est GFR (MDRD) Non-Af 73, BUN/Creatinine Ratio 35.8 H, Glucose 245 H, Calcium 8.6 03/01/20 05:58: WBC 6.5, RBC 5.28, Hgb 16.3, Hct 48.6, MCV 92.0, MCH 30.9, MCHC 33.5, RDW Std Deviation 48.0 H, RDW Coeff of Indra 14.1, Plt Count 165, MPV 9.9, Immature Gran % (Auto) 0.600, Neut % (Auto) 74.1 H, Lymph % (Auto) 15.4 L, Ogle % (Auto) 7.2, Eos % (Auto) 2.5, Baso % (Auto) 0.2, Absolute Neuts (auto) 4.8, Absolute Lymphs (auto) 1.00, Nucleated RBC % 0 03/01/20 06:07: POC Glucose 246 H 03/01/20 11:50: POC Glucose 240 H 03/01/20 14:10: Sodium 155 H, Potassium 3.7, Chloride 126 H, Carbon Dioxide 20.0 L, Anion Gap 9, BUN 46 H, Creatinine 1.31 H, Estim Creat Clear Calc 55.88, Est GFR (MDRD) Af Amer 69, Est GFR (MDRD) Non-Af 57 L, BUN/Creatinine Ratio 35.1 H, Glucose 298 H, Calcium 8.9 Current Medications Acetaminophen (Tylenol) 650 mg PO Q6H PRN PRN PRN Reason: FEVER Last Admin: 03/01/20 11:49 Dose: 650 mg Documented by: Al Hydroxide/Mg Hydroxide (Mylanta Ii) 30 ml PO Q6H PRN PRN PRN Reason: Gastric Burning Atorvastatin Calcium (Lipitor) 40 mg PO QHS [facility] Dextrose (D50w Syringe) 0 gm IV X1 PRN; Protocol PRN Reason: Hypoglycemia Donepezil HCl (Aricept) 10 mg PO DAILY [facility] Fluoxetine HCl (Prozac) 40 mg PO DAILY [facility] Glucagon () 1 mg IM .X1 PRN PRN Reason: Hypoglycemia Hydralazine HCl (Apresoline Iv) 5 mg IV Q6H PRN PRN PRN Reason: BLOOD PRESSURE Last Admin: 03/01/20 13:04 Dose: 5 mg Documented by: Hydroxyzine Pamoate (Vistaril Pamoate Capsule) 25 mg PO QHS [facility] Pantoprazole Sodium 40 mg/ (Sodium Chloride) 110 mls @ 330 mls/hr IV Q24 [facility] Last Infusion: 03/01/20 11:45 Dose: Infused Documented by: Dextrose () 1,000 mls @ 75 mls/hr IV .[id number] [facility] Insulin Human Lispro (Humalog Kwikpen (Bkc)) 0 unit SC Q6 [facility]; Protocol Last Admin: 03/01/20 11:51 Dose: 2 units Documented by: Latanoprost (Xalatan Opthalmic) 1 drop EACH EYE QHS [facility] Last Admin: 02/29/20 21:02 Dose: 1 drop Documented by: Levothyroxine Sodium (Synthroid) 125 mcg PO DAILY@0600 [facility] Last Admin: 03/01/20 11:49 Dose: 125 mcg Documented by: Melatonin (Melatonin) 3 mg PO QHS PRN PRN Reason: SLEEP Metoprolol Tartrate (Lopressor (Beta Mauricio)) 50 mg PO BID [facility] Last Admin: 03/01/20 11:14 Dose: 50 mg Documented by: Metoprolol Tartrate (Lopressor (Beta Mauricio)) 5 mg IV Q6H PRN PRN PRN Reason: BLOOD PRESSURE Last Admin: 03/01/20 11:14 Dose: 5 mg Documented by: Morphine Sulfate () 2 - 4 mg IV Q2H PRN PRN PRN Reason: Pain Score 1-10/10 Last Admin: 03/01/20 13:05 Dose: 2 mg Documented by: Morphine Sulfate () 2 - 4 mg IV Q2H PRN PRN PRN Reason: Pain Score 1-10/10 Ondansetron HCl (Zofran) 4 mg IV Q8H PRN PRN PRN Reason: NAUSEA/VOMITING Risperidone (Risperdal) 2 mg PO QHS [facility] Sodium Chloride () 10 - 40 ml IV UD PRN PRN Reason: SALINE FLUSH Last Admin: 03/01/20 11:14 Dose: 10 ml Documented by: Timolol Maleate (Timoptic) 1 drop EACH EYE DAILY [facility] Last Admin: 03/01/20 11:21 Dose: 1 drop Documented by: Trazodone HCl (Desyrel) 200 mg PO QHS [facility] Vital Signs/Narrative: Vital Signs Temp Pulse Resp BP Pulse Ox 03/01/20 14:35 99.1 F 83 26 H 160/81 H 96 03/01/20 13:04 90 03/01/20 12:49 99.1 F 90 26 H 179/89 H 96 Assessment/Plan This patient was seen in conjunction with Juanjo ROJAS. I have independently interviewed and examined the patient and reviewed pertinent history, examination findings, laboratory and plan of management. I have reviewed the note and agree with the documented findings with the few additional points. In brief, patient is 69-year-old gentleman with no prior history of cancer is admitted with small bowel obstruction secondary to metastatic deposits. Patient had laparotomy, ileocecal ectomy due to adenocarcinoma likely small bowel with cecal mass, small bowel mesenteric mass, and liver mass palpated. Repeat chest x-ray was done for low-grade fever, shortness of breath or tachypnea. Shows atelectasis. Incentive spirometry reinforced. Hyponatremia: IV fluids changed to D5W. Repeat serum sodium. Acute kidney injury, most likely secondary to prerenal/abdominal surgery: Patient is having about 2.5 L urine output daily. Vale catheter was removed. Had large urine output with unconsciousness. Small flatus in the morning. Small sips and chips. Other comorbidities: Diabetes mellitus type 2, hypertension, hypothyroidism and dementia: Multiple comorbidities complicates the present care and expect difficult and delay recovery End-of-life goal, advanced directive/living will: Patient does not have living will or DURABLE POWER OF [employer] for healthcare. After discussion of procedures involved with full code, DNR CC arrest and DNR CC, the patient opted for DNR-CC Arrest Patient does not want artificial life support including intubation, tube feed, ventilator and/chest compression, central venous catheter, vasopressor and DC shock if needed DNR CC arrest. Total time spent in [id number] encounter in discussion of advanced directive 16 minutes. I have discussed my assessment with Juanjo ROJAS and orders have been reviewed. Inpatient E&M: 10972 Subs Hosp L2 Procedures: 78760 Advncd Care Plan 30 Min
[2020-03-01 16:05] LABS: Carcinoembryonic Antigen 0.9 ng/mL (0.0-4.7)
[2020-03-01 16:11] LABS: Carbohydrate Ag 19-9 2261 1240
[2020-03-01 17:05] LABS: Bedside Glucose 317 mg/dL (70-110)
[2020-03-01] MEDS: Atorvastatin Calcium 40 MG Tablet PO (22:58)
[2020-03-01] MEDS: traZODone 100 MG Tablet 200 MG PO (22:58)
[2020-03-01] MEDS: RisperiDONE 2 MG Tablet PO (22:59)
[2020-03-01] MEDS: hydrOXYzine PAM 25 MG Capsule PO (22:59)
[2020-03-01] MEDS: Latanoprost 0.005% 1 Bottle 1 DRP EACH EYE (23:00)
[2020-03-01 23:16] LABS: Bedside Glucose 296 mg/dL (70-110)
[2020-03-01 23:26] LABS: Sodium Level 154 mmol/L (136-145)
[2020-03-02] VITALS (24 sets, daily range): BP systolic 109–163; BP diastolic 61–97; PULSE 85–119; RESP 20–34; TEMP 36.4–37; O2SAT 92–96
[2020-03-02] MEDS: Morphine 2 MG/ML Syringe IV ×2 (03:44→15:40)
[2020-03-02] MEDS: Insulin Lispro 100 UNIT/ML INSULN.PEN SC ×4 (05:23→23:55)
[2020-03-02] MEDS: Levothyroxine 125 MCG Tablet PO (05:25)
[2020-03-02 05:36] LABS: Bedside Glucose 344 mg/dL (70-110)
[2020-03-02 05:54] LABS: Absolute Lymphocyte Count 0.87 X10^3/uL (0.83-4.51); Absolute Neutrophil Count 2.7 X10^3/uL (2.0-7.7); Basophil# 0.01 X10^3/uL; Basophil% 0.2 % (0-1); Hematocrit 48.2 % (40-54); Hemoglobin 15.8 g/dL (13.0-16.5); Lymphocyte # 0.87 X10^3/ul (4.0); Lymphocyte % 21.6 % (19-41); Mean Corp Hgb Conc 32.8 g/dL (32-36); Mean Corpuscular Hgb 29.9 pg (27.0-32.0); Mean Corpuscular Volume 91.3 fL (80-94); Mean Platelet Vol. 9.6 fl (6.2-12.0); NRBC Flagged by Analyzer 0 % (0-5); Neutrophil # 2.72 X10^3/uL (2.7-7.7); Neutrophil % 67.7 % (47-70); Platelet Count 161 K/mm3 (150-450); RBC Distribution Width CV 14.6 % (11.6-14.6); RBC Distribution Width SD 49.1 fl (35.1-43.9); Red Blood Count 5.28 M/mm3 (4.6-6.2)
--- NOTE | 2020-03-02 05:55 | RAD_ITS ---
STUDY: X-RAY - ABDOMEN/PELVIS REASON FOR EXAM: Male, 69 years old. ILEUS TECHNIQUE: Two AP supine views of the abdomen and pelvis. Portable COMPARISON: FINDINGS: There is retained fecal material within the colon. There is there are surgical clips in the midline abdomen. There is mild increased air distention of small bowel with decompression of colon. Normal soft tissue structures. Normal visualized osseous structures. RAD/Abdomen Single View IMPRESSION: Increased air distention of small bowel likely high-grade ileus or partial obstruction, there is contrast within the decompressed colon, patient is reportedly status post small bowel series 02/27/2020. Electronically Signed: Billie Griffith MD at 5:22 EDT , Service support ,
[2020-03-02 06:02] LABS: Anion Gap 10 (5-15); BUN 53 mg/dL (7-18); BUN/Creat Ratio 40.8 RATIO (10-20); Calcium,Total 8.4 mg/dL (8.5-10.1); Chloride 124 mmol/L (98-107); EST Glomerular Filtration Rate 58 mL/min (>60); Est Glom Filt Rate - Afr Amer 70 mL/min (>60); Estimated Creatinine Clearance 56.31 ml/min; Glucose 366 mg/dL (74-106); Potassium 3.7 mmol/L (3.5-5.1); Sodium Level 155 mmol/L (136-145)
--- NOTE | 2020-03-02 09:03 | PCM.PN.SRG ---
Patient Problems: Active and Suspected Problems (Last Reviewed 03/08/18 @ 10:[address] Bob Paulson MD) Small bowel obstruction (Acute) Rhinitis (Acute) Hyperkalemia (Acute) Elevated serum creatinine (Acute) Abdominal pain (Acute) Subjective: Patient's sodium is still 155 he is currently on D5W since yesterday, patient still tachypneic/tachycardic in low 100s, still rates his pain low and is not really asking for pain meds - Physical Exam Vitals/I&O's: Vital Signs Temp Pulse Resp BP Pulse Ox 97.7 F L 85 24 H 147/85 H 93 03/02/20 07:57 03/02/20 07:57 03/02/20 07:57 03/02/20 07:57 03/02/20 07:57 Oxygen Flow Rate (L/min) 2 Oxygen Delivery Method Nasal Cannula Weight: 199 lb 11.821 oz Body Mass Index (BMI) 29.8 Finger Stick Blood Glucose 302 Intake and Output for Last 24 Hours 02/29/20 03/01/20 03/02/20 23:59 23:59 23:59 Intake Total 2717.08 / 2717.08 2234.17 / 2234.17 870 / 870 Output Total 2525 / 2525 1800 / 1800 450 / 450 Balance 192.08 / 192.08 434.17 / 434.17 420 / 420 General: Alert, Oriented x3, Cooperative HEENT: Atraumatic Lungs: Tachypneic Cardiovascular: Tachycardic Abdomen: Soft, Distended, Tender - Tender mainly by incision incision clean dry and intact with yenny, lower part incision was opened small amount as there is some questionable drainage on the dressing however current drainage is only serosanguineous no signs of erythema Laboratory Results 02/28/20 06:05: Carcinoembryonic Ag 0.9, CA 19-9 Serial Monitor 02/28/20 06:05: CA 19-9 Serial Monitor [id number] 03/01/20 05:58: WBC 6.5, RBC 5.28, Hgb 16.3, Hct 48.6, MCV 92.0, MCH 30.9, MCHC 33.5, RDW Std Deviation 48.0 H, RDW Coeff of Indra 14.1, Plt Count 165, MPV 9.9, Immature Gran % (Auto) 0.600, Neut % (Auto) 74.1 H, Lymph % (Auto) 15.4 L, [place] % (Auto) 7.2, Eos % (Auto) 2.5, Baso % (Auto) 0.2, Absolute Neuts (auto) 4.8, Absolute Lymphs (auto) 1.00, Nucleated RBC % 0 03/01/20 11:50: POC Glucose 240 H 03/01/20 14:10: Sodium 155 H, Potassium 3.7, Chloride 126 H, Carbon Dioxide 20.0 L, Anion Gap 9, BUN 46 H, Creatinine 1.31 H, Estim Creat Clear Calc 55.88, Est GFR (MDRD) Af Amer 69, Est GFR (MDRD) Non-Af 57 L, BUN/Creatinine Ratio 35.1 H, Glucose 298 H, Calcium 8.9 03/01/20 16:55: POC Glucose 317 H 03/01/20 23:06: POC Glucose 296 H 03/01/20 23:10: Sodium 154 H 03/02/20 05:20: POC Glucose 344 H 03/02/20 05:30: WBC 4.0 L, RBC 5.28, Hgb 15.8, Hct 48.2, MCV 91.3, MCH 29.9, MCHC 32.8, RDW Std Deviation 49.1 H, RDW Coeff of Indra 14.6, Plt Count 161, MPV 9.6, Immature Gran % (Auto) 0.500, Neut % (Auto) 67.7, Lymph % (Auto) 21.6, [place] % (Auto) 10.0, Eos % (Auto) 0.0, Baso % (Auto) 0.2, Absolute Neuts (auto) 2.7, Absolute Lymphs (auto) 0.87, Nucleated RBC % 0 03/02/20 05:30: Sodium 155 H, Potassium 3.7, Chloride 124 H, Carbon Dioxide 21.0, Anion Gap 10, BUN 53 H, Creatinine 1.30, Estim Creat Clear Calc 56.31, Est GFR (MDRD) Af Amer 70, Est GFR (MDRD) Non-Af 58 L, BUN/Creatinine Ratio 40.8 H, Glucose 366 H, Calcium 8.4 L Current Medications Acetaminophen (Tylenol) 650 mg PO Q6H PRN PRN PRN Reason: FEVER Last Admin: 03/01/20 11:49 Dose: 650 mg Documented by: Al Hydroxide/Mg Hydroxide (Mylanta Ii) 30 ml PO Q6H PRN PRN PRN Reason: Gastric Burning Atorvastatin Calcium (Lipitor) 40 mg PO QHS [facility] Last Admin: 03/01/20 22:58 Dose: 40 mg Documented by: Dextrose (D50w Syringe) 0 gm IV X1 PRN; Protocol PRN Reason: Hypoglycemia Donepezil HCl (Aricept) 10 mg PO DAILY [facility] Fluoxetine HCl (Prozac) 40 mg PO DAILY [facility] Glucagon () 1 mg IM .X1 PRN PRN Reason: Hypoglycemia Hydralazine HCl (Apresoline Iv) 5 mg IV Q6H PRN PRN PRN Reason: BLOOD PRESSURE Last Admin: 03/01/20 13:04 Dose: 5 mg Documented by: Hydroxyzine Pamoate (Vistaril Pamoate Capsule) 25 mg PO QHS [facility] Last Admin: 03/01/20 22:59 Dose: 25 mg Documented by: Pantoprazole Sodium 40 mg/ (Sodium Chloride) 110 mls @ 330 mls/hr IV Q24 [facility] Last Infusion: 03/01/20 11:45 Dose: Infused Documented by: Dextrose () 1,000 mls @ 75 mls/hr IV .[id number] [facility] Last Admin: 03/02/20 05:26 Dose: 75 mls/hr Documented by: Insulin Human Lispro (Humalog Kwikpen (Bkc)) 0 unit SC Q6 [facility]; Protocol Last Admin: 03/02/20 05:23 Dose: 4 units Documented by: Latanoprost (Xalatan Opthalmic) 1 drop EACH EYE QHS [facility] Last Admin: 03/01/20 23:00 Dose: 1 drop Documented by: Levothyroxine Sodium (Synthroid) 125 mcg PO DAILY@0600 [facility] Last Admin: 03/02/20 05:25 Dose: 125 mcg Documented by: Melatonin (Melatonin) 3 mg PO QHS PRN PRN Reason: SLEEP Metoprolol Tartrate (Lopressor (Beta Mauricio)) 50 mg PO BID [facility] Last Admin: 03/01/20 22:59 Dose: 50 mg Documented by: Metoprolol Tartrate (Lopressor (Beta Mauricio)) 5 mg IV Q6H PRN PRN PRN Reason: BLOOD PRESSURE Last Admin: 03/01/20 11:14 Dose: 5 mg Documented by: Morphine Sulfate () 2 - 4 mg IV Q2H PRN PRN PRN Reason: Pain Score 1-10/10 Last Admin: 03/02/20 03:44 Dose: 2 mg Documented by: Morphine Sulfate () 2 - 4 mg IV Q2H PRN PRN PRN Reason: Pain Score 1-10/10 Ondansetron HCl (Zofran) 4 mg IV Q8H PRN PRN PRN Reason: NAUSEA/VOMITING Risperidone (Risperdal) 2 mg PO QHS [facility] Last Admin: 03/01/20 22:59 Dose: 2 mg Documented by: Sodium Chloride () 10 - 40 ml IV UD PRN PRN Reason: SALINE FLUSH Last Admin: 03/01/20 11:14 Dose: 10 ml Documented by: Timolol Maleate (Timoptic) 1 drop EACH EYE DAILY [facility] Last Admin: 03/01/20 11:21 Dose: 1 drop Documented by: Trazodone HCl (Desyrel) 200 mg PO QHS [facility] Last Admin: 03/01/20 22:58 Dose: 200 mg Documented by: Medical Necessity - Tobacco Use Smoking Status: Former smoker Tobacco Use: Non-smoker Assessment/Plan All Active Problems (Last Reviewed 03/08/18 @ 10:[address] 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 NPO until +flatus, await final pathology, KUB showed dilated small bowel contrast in the colon as well as the rectum 2. encouraged amb in halls 3x day, IS use, up to chair 3. Cr increased to 1.8 4. hypernatremia- IVF changed yesterday to D5 W however sodium went from 155->154->155 Fina Marcos M.D. Pager: [phone] [facility] [address] [place] [address], Outpatient [facility], [address] [place] [address] Office: [phone]
[2020-03-02] MEDS: 0.9% Saline Lock 10 ML Syringe IV ×2 (09:42→17:50)
[2020-03-02] MEDS: Timolol 0.25% 5ML OPTH.BTL 1 DRP EACH EYE (09:44)
--- NOTE | 2020-03-02 09:48 | CASEMGMT ---
Updated clinicals faxed to [place] transfer center at this time. Arlen MURRAY CM
[2020-03-02] MEDS: Metoprolol Tartrate 50 MG Tablet PO ×2 (10:10→23:48)
[2020-03-02] MEDS: Donepezil HCl 10 MG Tablet PO (10:10)
[2020-03-02] MEDS: FLUoxetine 20 MG Capsule 40 MG PO (10:10)
--- NOTE | 2020-03-02 11:14 | PN_ITS ---
<Juanjo Degroot - Last Filed: 03/02/20 11:14> Patient Problems: Active and Suspected Problems (Last Reviewed 03/08/18 @ 10:[address] Bob Paulson MD) Small bowel obstruction (Acute) Rhinitis (Acute) Hyperkalemia (Acute) Elevated serum creatinine (Acute) Abdominal pain (Acute) Reason for Visit: SBO Subjective: Pt c/o ongoing diffuse abd pain, nausea, no vomiting, mild SOB, rare nonproductive cough. No fever/chills. Rare flatus, no BM. Vitals/I&O's: Vital Signs Temp Pulse Resp BP Pulse Ox 98.6 F 105 H 34 H 111/66 94 03/02/20 10:16 03/02/20 10:16 03/02/20 10:16 03/02/20 10:16 03/02/20 10:16 Oxygen Flow Rate (L/min) 2 Oxygen Delivery Method Nasal Cannula Weight: 199 lb 11.821 oz Body Mass Index (BMI) 29.8 Finger Stick Blood Glucose 302 Intake and Output for Last 24 Hours 02/29/20 03/01/20 03/02/20 23:59 23:59 23:59 Intake Total 2717.08 / 2717.08 2234.17 / 2234.17 980 / 980 Output Total 2525 / 2525 1800 / 1800 450 / 450 Balance 192.08 / 192.08 434.17 / 434.17 530 / 530 General: Alert, Oriented x3, Cooperative HEENT: Atraumatic, PERRLA, EOMI, Normocephalic Neck: Supple, No JVD, Negative Carotid Bruits Lungs: Clear to auscultation, Diminished Cardiovascular: Regular rate, No murmurs Abdomen: Bowel Sounds Not Present, Distended, Tender Extremities: No edema, Capillary Refill Less than 3 Seconds Skin: No rashes, No breakdown Musculoskeletal: No Tenderness to Palpation of Joints or Extremities Neurological: Cranial nerves II-XII grossly intact Psych/Mental Status: Normal Affect, Appropriate Laboratory Results 02/28/20 06:05: Carcinoembryonic Ag 0.9, CA 19-9 Serial Monitor 02/28/20 06:05: CA 19-9 Serial Monitor [id number] 03/01/20 11:50: POC Glucose 240 H 03/01/20 14:10: Sodium 155 H, Potassium 3.7, Chloride 126 H, Carbon Dioxide 20.0 L, Anion Gap 9, BUN 46 H, Creatinine 1.31 H, Estim Creat Clear Calc 55.88, Est GFR (MDRD) Af Amer 69, Est GFR (MDRD) Non-Af 57 L, BUN/Creatinine Ratio 35.1 H, Glucose 298 H, Calcium 8.9 03/01/20 16:55: POC Glucose 317 H 03/01/20 23:06: POC Glucose 296 H 03/01/20 23:10: Sodium 154 H 03/02/20 05:20: POC Glucose 344 H 03/02/20 05:30: WBC 4.0 L, RBC 5.28, Hgb 15.8, Hct 48.2, MCV 91.3, MCH 29.9, MCHC 32.8, RDW Std Deviation 49.1 H, RDW Coeff of Indra 14.6, Plt Count 161, MPV 9.6, Immature Gran % (Auto) 0.500, Neut % (Auto) 67.7, Lymph % (Auto) 21.6, [place] % (Auto) 10.0, Eos % (Auto) 0.0, Baso % (Auto) 0.2, Absolute Neuts (auto) 2.7, Absolute Lymphs (auto) 0.87, Nucleated RBC % 0 03/02/20 05:30: Sodium 155 H, Potassium 3.7, Chloride 124 H, Carbon Dioxide 21.0, Anion Gap 10, BUN 53 H, Creatinine 1.30, Estim Creat Clear Calc 56.31, Est GFR (MDRD) Af Amer 70, Est GFR (MDRD) Non-Af 58 L, BUN/Creatinine Ratio 40.8 H, Glucose 366 H, Calcium 8.4 L Current Medications Acetaminophen (Tylenol) 650 mg PO Q6H PRN PRN PRN Reason: FEVER Last Admin: 03/01/20 11:49 Dose: 650 mg Documented by: Al Hydroxide/Mg Hydroxide (Mylanta Ii) 30 ml PO Q6H PRN PRN PRN Reason: Gastric Burning Atorvastatin Calcium (Lipitor) 40 mg PO QHS [facility] Last Admin: 03/01/20 22:58 Dose: 40 mg Documented by: Dextrose (D50w Syringe) 0 gm IV X1 PRN; Protocol PRN Reason: Hypoglycemia Donepezil HCl (Aricept) 10 mg PO DAILY [facility] Last Admin: 03/02/20 10:10 Dose: 10 mg Documented by: Fluoxetine HCl (Prozac) 40 mg PO DAILY [facility] Last Admin: 03/02/20 10:10 Dose: 40 mg Documented by: Glucagon () 1 mg IM .X1 PRN PRN Reason: Hypoglycemia Hydralazine HCl (Apresoline Iv) 5 mg IV Q6H PRN PRN PRN Reason: BLOOD PRESSURE Last Admin: 03/01/20 13:04 Dose: 5 mg Documented by: Hydroxyzine Pamoate (Vistaril Pamoate Capsule) 25 mg PO QHS [facility] Last Admin: 03/01/20 22:59 Dose: 25 mg Documented by: Pantoprazole Sodium 40 mg/ (Sodium Chloride) 110 mls @ 330 mls/hr IV Q24 [facility] Last Infusion: 03/02/20 10:02 Dose: Infused Documented by: Dextrose () 1,000 mls @ 75 mls/hr IV .[id number] [facility] Last Admin: 03/02/20 05:26 Dose: 75 mls/hr Documented by: Insulin Human Lispro (Humalog Kwikpen (Bkc)) 0 unit SC Q6 [facility]; Protocol Last Admin: 03/02/20 05:23 Dose: 4 units Documented by: Latanoprost (Xalatan Opthalmic) 1 drop EACH EYE QHS [facility] Last Admin: 03/01/20 23:00 Dose: 1 drop Documented by: Levothyroxine Sodium (Synthroid) 125 mcg PO DAILY@0600 [facility] Last Admin: 03/02/20 05:25 Dose: 125 mcg Documented by: Melatonin (Melatonin) 3 mg PO QHS PRN PRN Reason: SLEEP Metoprolol Tartrate (Lopressor (Beta Mauricio)) 50 mg PO BID [facility] Last Admin: 03/02/20 10:10 Dose: 50 mg Documented by: Metoprolol Tartrate (Lopressor (Beta Mauricio)) 5 mg IV Q6H PRN PRN PRN Reason: BLOOD PRESSURE Last Admin: 03/01/20 11:14 Dose: 5 mg Documented by: Morphine Sulfate () 2 - 4 mg IV Q2H PRN PRN PRN Reason: Pain Score 1-10/10 Last Admin: 03/02/20 03:44 Dose: 2 mg Documented by: Morphine Sulfate () 2 - 4 mg IV Q2H PRN PRN PRN Reason: Pain Score 1-10/10 Ondansetron HCl (Zofran) 4 mg IV Q8H PRN PRN PRN Reason: NAUSEA/VOMITING Risperidone (Risperdal) 2 mg PO QHS [facility] Last Admin: 03/01/20 22:59 Dose: 2 mg Documented by: Sodium Chloride () 10 - 40 ml IV UD PRN PRN Reason: SALINE FLUSH Last Admin: 03/02/20 09:42 Dose: 10 ml Documented by: Timolol Maleate (Timoptic) 1 drop EACH EYE DAILY [facility] Last Admin: 03/02/20 09:44 Dose: 1 drop Documented by: Trazodone HCl (Desyrel) 200 mg PO QHS [facility] Last Admin: 03/01/20 22:58 Dose: 200 mg Documented by: STROKE Vital Signs/Narrative: Vital Signs Temp Pulse Resp BP Pulse Ox 03/02/20 10:16 98.6 F 105 H 34 H 111/66 94 03/02/20 10:10 111 H 03/02/20 09:40 97.6 F L 111 H 32 H 110/62 93 03/02/20 07:57 97.7 F L 85 24 H 147/85 H 93 03/02/20 07:55 94 03/02/20 07:32 98.5 F 101 H 34 H 139/77 H 94 Medical Necessity - Tobacco Use Smoking Status: Former smoker Tobacco Use: Non-smoker Assessment/Plan All Active Problems (Last Reviewed 03/08/18 @ 10:[address] oBb Paulson MD) Ileus (Acute) Small bowel obstruction (Acute) Rhinitis (Acute) Hyperkalemia (Acute) Elevated serum creatinine (Acute) Abdominal pain (Acute) Chest pain, precordial (Acute) Family history of coronary artery disease (Acute) 1. SBO - s/p exp lap with ileocecectomy POD#2 - multiple lesions, cecal, mesentery, liver. ca19-9 1240, CEA 0.9.Hgb stable. Continue PPI as he had some irritation with an NG tube. -Chest x-ray with atelectasis, low-grade fever 100.1 yesterday, suspect atelectasis. Push incentive spirometer. Continue to push ambulation, out of bed at least 3 times daily. Pulmonary medicine following. -Oral meds resumed with sips. -No leukocytosis. No further fever. -no improvement in hypernatremia with D5W --> Nephrology consulted. 2. mild elevation in creatinine - continue to trend, renal consulted as above. sachin held. 3. Rhinitis - resolved 4. DMt2 - SSI q6 5. HTN - prn hydralazine, metoprolol, hold SACHIN 6. hypothyroidism - synthroid 7. dementia- aricept, prozac, risperdal, trazodone. DVT ppx: SCDs This patient was seen by Juanjo Degroot PA-C under the supervision of Doctor Carlton <Clyde Vincent - Last Filed: 03/02/20 14:12> Reason for Visit: Small bowel obstruction. Multiple metastatic deposits in bowel, mesentery and possibly liver Objective: No fever or chills. Patient is tachycardic, heart rate in 100s to 110s. Blood pressure was high in the morning 170/102 but is 110s in afternoon. Patient is still short of breath, tachypneic respiratory rate average about 25-3 5/min. On 2 L of oxygen. Abdomen is distended. Mild abdominal pain, 2-4/10 more like discomfort will abdomen. He passed little gas/flatus. Vitals/I&O's: Vital Signs Temp Pulse Resp BP Pulse Ox 98.0 F 105 H 20 H 110/67 95 03/02/20 13:23 03/02/20 13:23 03/02/20 13:23 03/02/20 13:23 03/02/20 13:23 Oxygen Flow Rate (L/min) 2 Oxygen Delivery Method Nasal Cannula Weight: 199 lb 11.821 oz Body Mass Index (BMI) 29.8 Finger Stick Blood Glucose 302 Intake and Output for Last 24 Hours 02/29/20 03/01/20 03/02/20 23:59 23:59 23:59 Intake Total 2717.08 / 2717.08 2234.17 / 2234.17 1780 / 1780 Output Total 2525 / 2525 1800 / 1800 875 / 875 Balance 192.08 / 192.08 434.17 / 434.17 905 / 905 General: Alert, Oriented x3, Cooperative HEENT: Atraumatic, PERRLA, EOMI, Normocephalic Neck: Supple, No JVD, Negative Carotid Bruits Lungs: Clear to auscultation, No rhonchi, No wheeze, No rales, Diminished - Air entry diminished in bilateral lung bases. Cardiovascular: Regular rate, Regular Rhythm, Normal S1, No murmurs, Tachycardic Abdomen: Bowel Sounds Present, Soft, Bowel Sounds Not Present, Distended, Tender - Tenderness present in operative region. Extremities: No edema, Capillary Refill Less than 3 Seconds Skin: No rashes, No breakdown Musculoskeletal: No Tenderness to Palpation of Joints or Extremities Neurological: Cranial nerves II-XII grossly intact, Neuro grossly intact, - - Mild dementia Psych/Mental Status: Normal Affect, Appropriate Laboratory Results 02/28/20 06:05: Carcinoembryonic Ag 0.9, CA 19-9 Serial Monitor 02/28/20 06:05: CA 19-9 Serial Monitor 1240 03/01/20 14:10: Sodium 155 H, Potassium 3.7, Chloride 126 H, Carbon Dioxide 20.0 L, Anion Gap 9, BUN 46 H, Creatinine 1.31 H, Estim Creat Clear Calc 55.88, Est GFR (MDRD) Af Amer 69, Est GFR (MDRD) Non-Af 57 L, BUN/Creatinine Ratio 35.1 H, Glucose 298 H, Calcium 8.9 03/01/20 16:55: POC Glucose 317 H 03/01/20 23:06: POC Glucose 296 H 03/01/20 23:10: Sodium 154 H 03/02/20 05:20: POC Glucose 344 H 03/02/20 05:30: WBC 4.0 L, RBC 5.28, Hgb 15.8, Hct 48.2, MCV 91.3, MCH 29.9, MCHC 32.8, RDW Std Deviation 49.1 H, RDW Coeff of Indra 14.6, Plt Count 161, MPV 9.6, Immature Gran % (Auto) 0.500, Neut % (Auto) 67.7, Lymph % (Auto) 21.6, [place] % (Auto) 10.0, Eos % (Auto) 0.0, Baso % (Auto) 0.2, Absolute Neuts (auto) 2.7, Absolute Lymphs (auto) 0.87, Nucleated RBC % 0 03/02/20 05:30: Sodium 155 H, Potassium 3.7, Chloride 124 H, Carbon Dioxide 21.0, Anion Gap 10, BUN 53 H, Creatinine 1.30, Estim Creat Clear Calc 56.31, Est GFR (MDRD) Af Amer 70, Est GFR (MDRD) Non-Af 58 L, BUN/Creatinine Ratio 40.8 H, Glucose 366 H, Calcium 8.4 L 03/02/20 11:19: POC Glucose 356 H Current Medications Acetaminophen (Tylenol) 650 mg PO Q6H PRN PRN PRN Reason: FEVER Last Admin: 03/01/20 11:49 Dose: 650 mg Documented by: Al Hydroxide/Mg Hydroxide (Mylanta Ii) 30 ml PO Q6H PRN PRN PRN Reason: Gastric Burning Atorvastatin Calcium (Lipitor) 40 mg PO QHS [facility] Last Admin: 03/01/20 22:58 Dose: 40 mg Documented by: Dextrose (D50w Syringe) 0 gm IV X1 PRN; Protocol PRN Reason: Hypoglycemia Donepezil HCl (Aricept) 10 mg PO DAILY [facility] Last Admin: 03/02/20 10:10 Dose: 10 mg Documented by: Fluoxetine HCl (Prozac) 40 mg PO DAILY [facility] Last Admin: 03/02/20 10:10 Dose: 40 mg Documented by: Glucagon () 1 mg IM .X1 PRN PRN Reason: Hypoglycemia Hydralazine HCl (Apresoline Iv) 5 mg IV Q6H PRN PRN PRN Reason: BLOOD PRESSURE Last Admin: 03/01/20 13:04 Dose: 5 mg Documented by: Hydroxyzine Pamoate (Vistaril Pamoate Capsule) 25 mg PO QHS [facility] Last Admin: 03/01/20 22:59 Dose: 25 mg Documented by: Pantoprazole Sodium 40 mg/ (Sodium Chloride) 110 mls @ 330 mls/hr IV Q24 [facility] Last Infusion: 03/02/20 10:02 Dose: Infused Documented by: Dextrose () 1,000 mls @ 125 mls/hr IV .Q8H [facility] Last Infusion: 03/02/20 13:26 Dose: 125 mls/hr Documented by: Insulin Human Lispro (Humalog Kwikpen (Bkc)) 0 unit SC Q6 [facility]; Protocol Last Admin: 03/02/20 11:22 Dose: 4 units Documented by: Latanoprost (Xalatan Opthalmic) 1 drop EACH EYE QHS [facility] Last Admin: 03/01/20 23:00 Dose: 1 drop Documented by: Levothyroxine Sodium (Synthroid) 125 mcg PO DAILY@0600 [facility] Last Admin: 03/02/20 05:25 Dose: 125 mcg Documented by: Melatonin (Melatonin) 3 mg PO QHS PRN PRN Reason: SLEEP Metoprolol Tartrate (Lopressor (Beta Mauricio)) 50 mg PO BID [facility] Last Admin: 03/02/20 10:10 Dose: 50 mg Documented by: Metoprolol Tartrate (Lopressor (Beta Mauricio)) 5 mg IV Q6H PRN PRN PRN Reason: BLOOD PRESSURE Last Admin: 03/01/20 11:14 Dose: 5 mg Documented by: Morphine Sulfate () 2 - 4 mg IV Q2H PRN PRN PRN Reason: Pain Score 1-10/10 Last Admin: 03/02/20 03:44 Dose: 2 mg Documented by: Morphine Sulfate () 2 - 4 mg IV Q2H PRN PRN PRN Reason: Pain Score 1-10/10 Ondansetron HCl (Zofran) 4 mg IV Q8H PRN PRN PRN Reason: NAUSEA/VOMITING Risperidone (Risperdal) 2 mg PO QHS [facility] Last Admin: 03/01/20 22:59 Dose: 2 mg Documented by: Sodium Chloride () 10 - 40 ml IV UD PRN PRN Reason: SALINE FLUSH Last Admin: 03/02/20 09:42 Dose: 10 ml Documented by: Timolol Maleate (Timoptic) 1 drop EACH EYE DAILY [facility] Last Admin: 03/02/20 09:44 Dose: 1 drop Documented by: Trazodone HCl (Desyrel) 200 mg PO QHS [facility] Last Admin: 03/01/20 22:58 Dose: 200 mg Documented by: STROKE Vital Signs/Narrative: Vital Signs Temp Pulse Resp BP Pulse Ox 03/02/20 13:23 98.0 F 105 H 20 H 110/67 95 03/02/20 12:15 98.6 F 105 H 30 H 119/68 95 03/02/20 11:17 98.1 F 103 H 28 H 109/62 95 03/02/20 10:16 98.6 F 105 H 34 H 111/66 94 03/02/20 10:10 111 H Assessment/Plan This patient was seen in conjunction with Juanjo ROJAS. I have independently interviewed and examined the patient and reviewed pertinent history, examination findings, laboratory and plan of management. I have reviewed the note and agree with the documented findings with the few additional points. In brief, patient is 69-year-old gentleman with no prior history of cancer is admitted with small bowel obstruction secondary to metastatic deposits. 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 Surgical biopsies are still pending. Repeat chest x-ray was done for low-grade fever, shortness of breath or tachypnea. Shows atelectasis. Incentive spirometry reinforced. 3D Modeler consulted and he agrees no antibiotics as there is no evidence or clinical findings consistent with pneumonia. Hypernatremia: IV fluids changed to D5W. Repeat serum sodium was high. Radio Rigger was consulted. Increase D5W at 125 mils per hour. FeNA UA ordered. Acute kidney injury, most likely secondary to prerenal/abdominal surgery: Vale catheter was removed. Had large urine output with unconsciousness. Small flatus in the morning. Small sips and chips. Other comorbidities: Diabetes mellitus type 2, hypertension, hypothyroidism and dementia: Multiple comorbidities complicates the present care and expect difficult and delay recovery End-of-life goal, advanced directive/living will: Patient does not have living will or DURABLE POWER OF HOSPICE MUSIC THERAPIST for healthcare. After discussion of procedures involved with full code, DNR CC arrest and DNR CC, the patient opted for DNR-CC Arrest Patient does not want artificial life support including intubation, tube feed, ventilator and/chest compression, central venous catheter, vasopressor and DC shock if needed DNR CC arrest. Total time of the visit including total time spent in counseling or coordination of care, (more than 50% of the total time, spent in obtaining medical information from nurses and other ancillary care providers), discussion with surgeon, environmental health safety engineer and stopper maker, review of labs and imaging is 35 minutes Inpatient E&M: [id number] [place] [id number]
[2020-03-02 11:35] LABS: Bedside Glucose 356 mg/dL (70-110)
--- NOTE | 2020-03-02 12:11 | PCM.CONS.PUL ---
Reason for Consult Date of Consultation: 03/02/20 Reason for Consultation: Acute hypoxemic respiratory insufficiency History of Present Illness: The patient is a 69-year-old male, with a history as outlined below, who initially presented to the emergency department on February 25 with complaints of abdominal pain and constipation. CT abdomen was obtained and revealed several fluid-filled nondistended small bowel loops. The patient was seen in consultation by general surgery and a Gastrografin small bowel follow-through examination was completed. The findings were in keeping with a small bowel obstruction. The patient was then taken to the OR on February 26, where he underwent exploratory laparotomy with ileocecectomy. 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 The patient has been managed on the progressive care unit postoperatively. His hospital course has now included the development of hypernatremia and respiratory insufficiency. It does appear that the patient has been on some form of supplemental oxygen via nasal cannula throughout his entire hospital stay. He has also been tachypneic dating back to February 28. This morning, the patient did report the presence of abdominal pain. Plain film chest x-ray revealed no focal infiltrate or consolidation. There was some evidence of bibasilar atelectasis. KUB revealed increased air distention of the small bowel likely secondary to a high-grade ileus. Past Medical History Past Medical History (Chronic Problems): Chronic Problems (Last Reviewed 03/08/18 @ 10:[address] Bob Paulson MD) History of left heart catheterization (Chronic) 06/20/2005 with subsequent PTCA and STANISLAV @ [facility] : Dr. 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) Z79.899 Hyperlipidemia (Chronic) E78.5 Allergies fenofibrate [From Tricor] Adverse Reaction (Verified 02/26/20 12:00) facial movements thioridazine [From Mellaril] Adverse Reaction (Verified 02/26/20 12:00) facial movements Home Medications: Ambulatory Orders Medication Instructions Recorded aspirin 81 mg tablet,delayed 81 mg PO DAILY tab 01/17/18 release atorvastatin 80 mg tablet 40 mg PO QHS 01/17/18 glipizide 10 mg tablet 10 mg PO BID 01/17/18 lisinopril 5 mg tablet 2.5 mg PO DAILY 01/17/18 donepezil 10 mg tablet 10 mg PO DAILY tab 03/05/18 Cholecalciferol (Vitamin D3) 2,000 unit PO DAILY 01/06/20 [Vitamin D3] Empagliflozin [Jardiance] 25 mg PO DAILY 01/06/20 Fluoxetine HCl [Prozac] 40 mg PO DAILY 01/06/20 Insulin Aspart Protam & Aspart 66 unit SQ DAILY@1700 01/06/20 [Novolog Mix 70-30 Vial] Insulin Aspart Protam & Aspart 100 unit SQ DAILY@0800 01/06/20 [Novolog Mix 70-30 Vial] Levothyroxine Sodium [Synthroid] 125 mcg PO DAILY 01/06/20 Metoprolol Tartrate 50 mg PO BID 01/06/20 Multivitamin [Multiple Vitamins] 1 tab PO DAILY 01/06/20 Omeprazole 20 mg PO DAILY 01/06/20 Risperidone 2 mg PO QHS 01/06/20 Timolol 0.25% [Timoptic] 1 drp EACH EYE DAILY 01/06/20 Travoprost [Travatan Z] 1 drp EACH EYE QHS 01/06/20 hydrOXYzine pamoate capsule 25 mg PO QHS 01/06/20 [Vistaril pamoate capsule] traZODone [Desyrel] 200 mg PO QHS 01/06/20 metFORMIN HCl [Glucophage] 500 mg PO BIDCM #0 01/08/20 Melatonin [Melatin] 3 mg PO QHS PRN 02/26/20 Polyethylene Glycol 3350 [Miralax] 17 gm PO DAILY 02/26/20 Surgical History: Surgical History (Last Reviewed 03/08/18 @ 10:[address] Bob Paulson MD) History of left heart catheterization (Chronic) Z98.890 06/20/2005 with subsequent PTCA and STANISLAV @ [facility] : Dr. Herrera History of percutaneous transluminal coronary angioplasty Z98.61 PTCA & stent placement in posterior descending branch of RCA, using STANISLAV Surgical History: - - vasectomy, heart stent Psychiatric History: No pertinent psych hx Lives: Spouse/ Significant Other Smoking Status: Former smoker Tobacco Use: Non-smoker Alcohol: None Drugs: None - *Family History Maternal Family History: Family History (Last Reviewed 02/26/20 @ 16:10 by CRYSTAL Pendleton) Mother Diabetes Brother CAD (coronary artery disease) Sudden cardiac Myocardial infarction Brother CAD (coronary artery disease) Father No problems noted. Other Family history of coronary artery disease Review of Systems Constitutional: Denies: Chills, Fever Eyes: Denies: Blurred vision, Double vision HEENT: Denies: Head Aches, Sinus Congestion, Sinus Drainage Cardiovascular: Denies: Chest Pain Respiratory: Reports: Shortness of Breath Gastrointestinal: Reports: Abdominal Pain Genitourinary: Denies: Dysuria Musculoskeletal: Denies: Joint Pain, Joint Tenderness Skin: Denies: Rash, Wounds Neurological: Denies: Numbness, Tingling, Focal weakness Psychiatric: Denies: Anxiety, Depression, Homicidal Ideations, Suicidal Ideations Hematologic/ Lymphatic: Denies: Easy Bruising, Easy Bleeding Patient Problems: Active and Suspected Problems (Last Reviewed 03/08/18 @ 10:[address] Bob Paulson MD) Small bowel obstruction (Acute) Rhinitis (Acute) Hyperkalemia (Acute) Elevated serum creatinine (Acute) Abdominal pain (Acute) Objective: The patient's most recent lab work, culture data and imaging studies have all been personally reviewed. - Physical Exam Vitals/I&O's: Vital Signs Temp Pulse Resp BP Pulse Ox 98.1 F 103 H 28 H 109/62 95 03/02/20 11:17 03/02/20 11:17 03/02/20 11:17 03/02/20 11:17 03/02/20 11:17 Oxygen Flow Rate (L/min) 2 Oxygen Delivery Method Nasal Cannula Weight: 199 lb 11.821 oz Body Mass Index (BMI) 29.8 Finger Stick Blood Glucose 302 Intake and Output for Last 24 Hours 02/29/20 03/01/20 03/02/20 23:59 23:59 23:59 Intake Total 2717.08 / 2717.08 2234.17 / 2234.17 980 / 980 Output Total 2525 / 2525 1800 / 1800 450 / 450 Balance 192.08 / 192.08 434.17 / 434.17 530 / 530 General: Alert, Cooperative, Confused, - - Sitting in bedside recliner. HEENT: Atraumatic, Normocephalic Oral: No Gingival or Mucosal Lesions/ Ulcerations, Dry Mucosa Neck: Supple, No Nodes, Trachea Midline Lungs: Diminished, Tachypneic Cardiovascular: Regular rate, Regular Rhythm, Normal S1, Normal S2 Abdomen: Soft, Hypoactive Bowel Sounds, Tender Extremities: No clubbing, No cyanosis, No edema Skin: No breakdown Musculoskeletal: No Muscle Wasting Lymphatic: No Cervical, Supraclavicular, or Inguinal Adenopathy Neurological: Neuro grossly intact Psych/Mental Status: Flat Affect Clinical Impression(s) from Imaging Studies Abdomen/Pelvis CT 02/26/20 12:26 IMPRESSION: Diffuse fatty infiltration of the liver. Inhomogeneous appearance of the left lobe of liver adjacent to the falciform ligament. This may represent dilated intrahepatic biliary ducts. Atrophy of the pancreas. Several fluid filled nondistended small bowel loops in the central portion of the abdomen. Electronically Signed: Maxx Bradford, at 15:01 EDT , Service support , Chest X-Ray 02/26/20 14:34 IMPRESSION: Borderline cardiomegaly. Electronically Signed: Maxx Bradford, at 15:01 EDT , Service support , Labs (Last 48 Hours) 02/28/20 02/28/20 02/29/20 06:05 06:05 12:23 WBC RBC Hgb Hct MCV MCH MCHC RDW Std Deviation RDW Coeff of Indra Plt Count MPV Immature Gran % (Auto) Neut % (Auto) Lymph % (Auto) Ramsey % (Auto) Eos % (Auto) Baso % (Auto) Absolute Neuts (auto) Absolute Lymphs (auto) Nucleated RBC % Sodium Potassium Chloride Carbon Dioxide Anion Gap BUN Creatinine Estim Creat Clear Calc Est GFR (MDRD) Af Amer Est GFR (MDRD) Non-Af BUN/Creatinine Ratio Glucose Calcium Carcinoembryonic Ag 0.9 CA 19-9 Serial Monitor 1240 POC Glucose 239 H 02/29/20 02/29/20 03/01/20 18:01 23:45 05:58 WBC RBC Hgb Hct MCV MCH MCHC RDW Std Deviation RDW Coeff of Indra Plt Count MPV Immature Gran % (Auto) Neut % (Auto) Lymph % (Auto) Ramsey % (Auto) Eos % (Auto) Baso % (Auto) Absolute Neuts (auto) Absolute Lymphs (auto) Nucleated RBC % Sodium 152 H Potassium 3.7 Chloride 121 H Carbon Dioxide 18.0 L Anion Gap 13 BUN 38 H Creatinine 1.06 Estim Creat Clear Calc 69.06 Est GFR (MDRD) Af Amer 89 Est GFR (MDRD) Non-Af 73 BUN/Creatinine Ratio 35.8 H Glucose 245 H Calcium 8.6 Carcinoembryonic Ag CA 19-9 Serial Monitor POC Glucose 245 H 229 H 03/01/20 03/01/20 03/01/20 05:58 06:07 11:50 WBC 6.5 RBC 5.28 Hgb 16.3 Hct 48.6 MCV 92.0 MCH 30.9 MCHC 33.5 RDW Std Deviation 48.0 H RDW Coeff of Indra 14.1 Plt Count 165 MPV 9.9 Immature Gran % (Auto) 0.600 Neut % (Auto) 74.1 H Lymph % (Auto) 15.4 L Ramsey % (Auto) 7.2 Eos % (Auto) 2.5 Baso % (Auto) 0.2 Absolute Neuts (auto) 4.8 Absolute Lymphs (auto) 1.00 Nucleated RBC % 0 Sodium Potassium Chloride Carbon Dioxide Anion Gap BUN Creatinine Estim Creat Clear Calc Est GFR (MDRD) Af Amer Est GFR (MDRD) Non-Af BUN/Creatinine Ratio Glucose Calcium Carcinoembryonic Ag CA 19-9 Serial Monitor POC Glucose 246 H 240 H 03/01/20 03/01/20 03/01/20 14:10 16:55 23:06 WBC RBC Hgb Hct MCV MCH MCHC RDW Std Deviation RDW Coeff of Indra Plt Count MPV Immature Gran % (Auto) Neut % (Auto) Lymph % (Auto) Ramsey % (Auto) Eos % (Auto) Baso % (Auto) Absolute Neuts (auto) Absolute Lymphs (auto) Nucleated RBC % Sodium 155 H Potassium 3.7 Chloride 126 H Carbon Dioxide 20.0 L Anion Gap 9 BUN 46 H Creatinine 1.31 H Estim Creat Clear Calc 55.88 Est GFR (MDRD) Af Amer 69 Est GFR (MDRD) Non-Af 57 L BUN/Creatinine Ratio 35.1 H Glucose 298 H Calcium 8.9 Carcinoembryonic Ag CA 19-9 Serial Monitor POC Glucose 317 H 296 H 03/01/20 03/02/20 03/02/20 23:10 05:20 05:30 WBC 4.0 L RBC 5.28 Hgb 15.8 Hct 48.2 MCV 91.3 MCH 29.9 MCHC 32.8 RDW Std Deviation 49.1 H RDW Coeff of Indra 14.6 Plt Count 161 MPV 9.6 Immature Gran % (Auto) 0.500 Neut % (Auto) 67.7 Lymph % (Auto) 21.6 Ramsey % (Auto) 10.0 Eos % (Auto) 0.0 Baso % (Auto) 0.2 Absolute Neuts (auto) 2.7 Absolute Lymphs (auto) 0.87 Nucleated RBC % 0 Sodium 154 H Potassium Chloride Carbon Dioxide Anion Gap BUN Creatinine Estim Creat Clear Calc Est GFR (MDRD) Af Amer Est GFR (MDRD) Non-Af BUN/Creatinine Ratio Glucose Calcium Carcinoembryonic Ag CA 19-9 Serial Monitor POC Glucose 344 H 03/02/20 03/02/20 05:30 11:19 WBC RBC Hgb Hct MCV MCH MCHC RDW Std Deviation RDW Coeff of Indra Plt Count MPV Immature Gran % (Auto) Neut % (Auto) Lymph % (Auto) Ramsey % (Auto) Eos % (Auto) Baso % (Auto) Absolute Neuts (auto) Absolute Lymphs (auto) Nucleated RBC % Sodium 155 H Potassium 3.7 Chloride 124 H Carbon Dioxide 21.0 Anion Gap 10 BUN 53 H Creatinine 1.30 Estim Creat Clear Calc 56.31 Est GFR (MDRD) Af Amer 70 Est GFR (MDRD) Non-Af 58 L BUN/Creatinine Ratio 40.8 H Glucose 366 H Calcium 8.4 L Carcinoembryonic Ag CA 19-9 Serial Monitor POC Glucose 356 H KUB X-Ray 02/27/20 07:01 IMPRESSION: Dilated small bowel loops with a small amount of fecal material in the colon. Follow-up is recommended. Electronically Signed: Maxx Sanchez, at 8:25 EDT , Service support , Small Bowel X-Ray 02/27/20 08:20 IMPRESSION: Findings in keeping with a small bowel obstruction most likely in the distal ileum. Electronically Signed: Maxx Bradford, at 13:15 EDT , Service support , Chest X-Ray 03/01/20 09:55 IMPRESSION: Minimal degree of increased markings at the lung bases slightly more prominent on the right side suggestive of bibasilar atelectasis. Electronically Signed: Maxx Bradford, at 10:15 EDT , Service support , KUB X-Ray 03/02/20 05:55 IMPRESSION: Increased air distention of small bowel likely high-grade ileus or partial obstruction, there is contrast within the decompressed colon, patient is reportedly status post small bowel series 02/27/2020. Electronically Signed: Billie Griffith MD at 5:22 EDT , Service support , Current Medications Acetaminophen (Tylenol) 650 mg PO Q6H PRN PRN PRN Reason: FEVER Last Admin: 03/01/20 11:49 Dose: 650 mg Documented by: Al Hydroxide/Mg Hydroxide (Mylanta Ii) 30 ml PO Q6H PRN PRN PRN Reason: Gastric Burning Atorvastatin Calcium (Lipitor) 40 mg PO QHS ALEX Last Admin: 03/01/20 22:58 Dose: 40 mg Documented by: Dextrose (D50w Syringe) 0 gm IV X1 PRN; Protocol PRN Reason: Hypoglycemia Donepezil HCl (Aricept) 10 mg PO DAILY [facility] Last Admin: 03/02/20 10:10 Dose: 10 mg Documented by: Fluoxetine HCl (Prozac) 40 mg PO DAILY [facility] Last Admin: 03/02/20 10:10 Dose: 40 mg Documented by: Glucagon () 1 mg IM .X1 PRN PRN Reason: Hypoglycemia Hydralazine HCl (Apresoline Iv) 5 mg IV Q6H PRN PRN PRN Reason: BLOOD PRESSURE Last Admin: 03/01/20 13:04 Dose: 5 mg Documented by: Hydroxyzine Pamoate (Vistaril Pamoate Capsule) 25 mg PO QHS [facility] Last Admin: 03/01/20 22:59 Dose: 25 mg Documented by: Pantoprazole Sodium 40 mg/ (Sodium Chloride) 110 mls @ 330 mls/hr IV Q24 [facility] Last Infusion: 03/02/20 10:02 Dose: Infused Documented by: Dextrose () 1,000 mls @ 75 mls/hr IV .[id number] [facility] Last Admin: 03/02/20 05:26 Dose: 75 mls/hr Documented by: Insulin Human Lispro (Humalog Kwikpen (Bkc)) 0 unit SC Q6 [facility]; Protocol Last Admin: 03/02/20 11:22 Dose: 4 units Documented by: Latanoprost (Xalatan Opthalmic) 1 drop EACH EYE QHS [facility] Last Admin: 03/01/20 23:00 Dose: 1 drop Documented by: Levothyroxine Sodium (Synthroid) 125 mcg PO DAILY@0600 [facility] Last Admin: 03/02/20 05:25 Dose: 125 mcg Documented by: Melatonin (Melatonin) 3 mg PO QHS PRN PRN Reason: SLEEP Metoprolol Tartrate (Lopressor (Beta Mauricio)) 50 mg PO BID [facility] Last Admin: 03/02/20 10:10 Dose: 50 mg Documented by: Metoprolol Tartrate (Lopressor (Beta Mauricio)) 5 mg IV Q6H PRN PRN PRN Reason: BLOOD PRESSURE Last Admin: 03/01/20 11:14 Dose: 5 mg Documented by: Morphine Sulfate () 2 - 4 mg IV Q2H PRN PRN PRN Reason: Pain Score 1-10/10 Last Admin: 03/02/20 03:44 Dose: 2 mg Documented by: Morphine Sulfate () 2 - 4 mg IV Q2H PRN PRN PRN Reason: Pain Score 1-10/10 Ondansetron HCl (Zofran) 4 mg IV Q8H PRN PRN PRN Reason: NAUSEA/VOMITING Risperidone (Risperdal) 2 mg PO QHS [facility] Last Admin: 03/01/20 22:59 Dose: 2 mg Documented by: Sodium Chloride () 10 - 40 ml IV UD PRN PRN Reason: SALINE FLUSH Last Admin: 03/02/20 09:42 Dose: 10 ml Documented by: Timolol Maleate (Timoptic) 1 drop EACH EYE DAILY [facility] Last Admin: 03/02/20 09:44 Dose: 1 drop Documented by: Trazodone HCl (Desyrel) 200 mg PO QHS [facility] Last Admin: 03/01/20 22:58 Dose: 200 mg Documented by: Assessment/Plan All Active Problems (Last Reviewed 03/08/18 @ 10:[address] Bob Paulson MD) Ileus (Acute) Small bowel obstruction (Acute) Rhinitis (Acute) Hyperkalemia (Acute) Elevated serum creatinine (Acute) Abdominal pain (Acute) Chest pain, precordial (Acute) Family history of coronary artery disease (Acute) RECOMMENDATIONS: 1. Wean supplemental oxygen to maintain saturations at or above 90%. 2. Continue to encourage aggressive incentive spirometer use. 3. Mobilize patient as tolerated. 4. Management of abdominal pain and ileus per hospitalist and general surgery. 5. Please call with any additional questions. IMPRESSIONS: 1. Acute hypoxemic respiratory insufficiency The patient's respiratory insufficiency is likely secondary to atelectasis, which is a consequence of the patient's intra-abdominal process, coupled with impaired respiratory mechanics due to pain. In addition, the patient appears to have some baseline neuropsychiatric deficits, which appear to have an impact on his understanding of how to use an incentive spirometer. Incentive spirometer technique was reviewed with the patient. However, his effort is very limited. I will defer management of the patient's abdominal pain and ileus to the primary team and general surgery accordingly. My recommendations would include encouraging the patient to utilize his incentive spirometer. The patient should also be mobilized as tolerated. There is no evidence on the patient's chest x-ray that would indicate an evolving infectious process. Therefore, I do not feel that antibiotics are indicated at this time. Wean supplemental oxygen as tolerated to maintain saturations at or above 90%. This note was generated with [employer] dictation software. It may contain incorrect words, spelling, and punctuation that were not noted in checking the note before signing. Inpatient E&M: 97856 Init Hosp L2
--- NOTE | 2020-03-02 12:58 | PCM.CONS.R ---
Consultation - Renal 03/02/20 PCP/ Referring MD: Requesting physician: [] Primary care physician: [facility] Reason for Consultation:: HNa - History of Present Illness History of Present Illness: The patient is a 69 year old M with past medical history as below who presented on February 25 with a chief complaint of abdominal pain and constipation and also found to have small bowel obstruction by CAT scan and small bowel follow-through. He was taken to the OR on February 26 where he underwent exploratory laparotomy with ileal cecectomy. 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 He developed hypernatremia from normal range to 155 today which prompted renal consult. Except abdominal pain and being very hard of hearing the patient has no other complaints. He denies vomiting diarrhea. KUB showed air distention of the small bowel likely secondary to high-grade ileus. He denies headache dizziness. He has no other complaints. - Allergies Allergies: Allergies fenofibrate [From Tricor] Adverse Reaction (Verified 02/26/20 12:00) facial movements thioridazine [From Mellaril] Adverse Reaction (Verified 02/26/20 12:00) facial movements - Current Medications Current Medications: Current Medications Acetaminophen (Tylenol) 650 mg PO Q6H PRN PRN PRN Reason: FEVER Last Admin: 03/01/20 11:49 Dose: 650 mg Documented by: Al Hydroxide/Mg Hydroxide (Mylanta Ii) 30 ml PO Q6H PRN PRN PRN Reason: Gastric Burning Atorvastatin Calcium (Lipitor) 40 mg PO QHS [facility] Last Admin: 03/01/20 22:58 Dose: 40 mg Documented by: Dextrose (D50w Syringe) 0 gm IV X1 PRN; Protocol PRN Reason: Hypoglycemia Donepezil HCl (Aricept) 10 mg PO DAILY [facility] Last Admin: 03/02/20 10:10 Dose: 10 mg Documented by: Fluoxetine HCl (Prozac) 40 mg PO DAILY [facility] Last Admin: 03/02/20 10:10 Dose: 40 mg Documented by: Glucagon () 1 mg IM .X1 PRN PRN Reason: Hypoglycemia Hydralazine HCl (Apresoline Iv) 5 mg IV Q6H PRN PRN PRN Reason: BLOOD PRESSURE Last Admin: 03/01/20 13:04 Dose: 5 mg Documented by: Hydroxyzine Pamoate (Vistaril Pamoate Capsule) 25 mg PO QHS [facility] Last Admin: 03/01/20 22:59 Dose: 25 mg Documented by: Pantoprazole Sodium 40 mg/ (Sodium Chloride) 110 mls @ 330 mls/hr IV Q24 [facility] Last Infusion: 03/02/20 10:02 Dose: Infused Documented by: Dextrose () 1,000 mls @ 75 mls/hr IV .[id number] [facility] Last Admin: 03/02/20 05:26 Dose: 75 mls/hr Documented by: Insulin Human Lispro (Humalog Kwikpen (Bkc)) 0 unit SC Q6 [facility]; Protocol Last Admin: 03/02/20 11:22 Dose: 4 units Documented by: Latanoprost (Xalatan Opthalmic) 1 drop EACH EYE QHS [facility] Last Admin: 03/01/20 23:00 Dose: 1 drop Documented by: Levothyroxine Sodium (Synthroid) 125 mcg PO DAILY@0600 [facility] Last Admin: 03/02/20 05:25 Dose: 125 mcg Documented by: Melatonin (Melatonin) 3 mg PO QHS PRN PRN Reason: SLEEP Metoprolol Tartrate (Lopressor (Beta Mauricio)) 50 mg PO BID [facility] Last Admin: 03/02/20 10:10 Dose: 50 mg Documented by: Metoprolol Tartrate (Lopressor (Beta Mauricio)) 5 mg IV Q6H PRN PRN PRN Reason: BLOOD PRESSURE Last Admin: 03/01/20 11:14 Dose: 5 mg Documented by: Morphine Sulfate () 2 - 4 mg IV Q2H PRN PRN PRN Reason: Pain Score 1-10/10 Last Admin: 03/02/20 03:44 Dose: 2 mg Documented by: Morphine Sulfate () 2 - 4 mg IV Q2H PRN PRN PRN Reason: Pain Score 1-10/10 Ondansetron HCl (Zofran) 4 mg IV Q8H PRN PRN PRN Reason: NAUSEA/VOMITING Risperidone (Risperdal) 2 mg PO QHS [facility] Last Admin: 03/01/20 22:59 Dose: 2 mg Documented by: Sodium Chloride () 10 - 40 ml IV UD PRN PRN Reason: SALINE FLUSH Last Admin: 03/02/20 09:42 Dose: 10 ml Documented by: Timolol Maleate (Timoptic) 1 drop EACH EYE DAILY [facility] Last Admin: 03/02/20 09:44 Dose: 1 drop Documented by: Trazodone HCl (Desyrel) 200 mg PO QHS [facility] Last Admin: 03/01/20 22:58 Dose: 200 mg Documented by: - Past Medical History Past Medical History (Chronic Problems): Chronic Problems (Last Reviewed 03/08/18 @ 10:[address] Bob Paulson MD) History of left heart catheterization (Chronic) 06/20/2005 with subsequent PTCA and STANISLAV @ [facility] : Dr. 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 Other Family history of coronary artery disease Review of Systems Eyes: Reports: - - Review of systems except abdominal pain and being very hard of hearing is otherwise negative per patient Patient Problems: Active and Suspected Problems (Last Reviewed 03/08/18 @ 10:[address] Bob Paulson MD) Small bowel obstruction (Acute) Rhinitis (Acute) Hyperkalemia (Acute) Elevated serum creatinine (Acute) Abdominal pain (Acute) - Physical Exam Vitals/I&O's: Vital Signs Temp Pulse Resp BP Pulse Ox 98.6 F 105 H 30 H 119/68 95 03/02/20 12:15 03/02/20 12:15 03/02/20 12:15 03/02/20 12:15 03/02/20 12:15 Oxygen Flow Rate (L/min) 2 Oxygen Delivery Method Nasal Cannula Weight: 90.6 kg Body Mass Index (BMI) 29.8 Finger Stick Blood Glucose 302 Intake and Output for Last 24 Hours 02/29/20 03/01/20 03/02/20 23:59 23:59 23:59 Intake Total 2717.08 / 2717.08 2234.17 / 2234.17 1180 / 1180 Output Total 2525 / 2525 1800 / 1800 875 / 875 Balance 192.08 / 192.08 434.17 / 434.17 305 / 305 General: Alert, Cooperative HEENT: Atraumatic, Normocephalic Oral: Dry Mucosa Neck: Supple, Trachea Midline Lungs: Clear to auscultation, Normal air movement Cardiovascular: Regular rate, Regular Rhythm, Normal S1, Normal S2 Abdomen: Bowel Sounds Present, Soft, Tender Extremities: No clubbing, No cyanosis Skin: No rashes Laboratory Results 02/28/20 06:05: Carcinoembryonic Ag 0.9, CA 19-9 Serial Monitor 02/28/20 06:05: CA 19-9 Serial Monitor 1240 03/01/20 14:10: Sodium 155 H, Potassium 3.7, Chloride 126 H, Carbon Dioxide 20.0 L, Anion Gap 9, BUN 46 H, Creatinine 1.31 H, Estim Creat Clear Calc 55.88, Est GFR (MDRD) Af Amer 69, Est GFR (MDRD) Non-Af 57 L, BUN/Creatinine Ratio 35.1 H, Glucose 298 H, Calcium 8.9 03/01/20 16:55: POC Glucose 317 H 03/01/20 23:06: POC Glucose 296 H 03/01/20 23:10: Sodium 154 H 03/02/20 05:20: POC Glucose 344 H 03/02/20 05:30: WBC 4.0 L, RBC 5.28, Hgb 15.8, Hct 48.2, MCV 91.3, MCH 29.9, MCHC 32.8, RDW Std Deviation 49.1 H, RDW Coeff of Indra 14.6, Plt Count 161, MPV 9.6, Immature Gran % (Auto) 0.500, Neut % (Auto) 67.7, Lymph % (Auto) 21.6, Pitt % (Auto) 10.0, Eos % (Auto) 0.0, Baso % (Auto) 0.2, Absolute Neuts (auto) 2.7, Absolute Lymphs (auto) 0.87, Nucleated RBC % 0 03/02/20 05:30: Sodium 155 H, Potassium 3.7, Chloride 124 H, Carbon Dioxide 21.0, Anion Gap 10, BUN 53 H, Creatinine 1.30, Estim Creat Clear Calc 56.31, Est GFR (MDRD) Af Amer 70, Est GFR (MDRD) Non-Af 58 L, BUN/Creatinine Ratio 40.8 H, Glucose 366 H, Calcium 8.4 L 03/02/20 11:19: POC Glucose 356 H Current Medications Acetaminophen (Tylenol) 650 mg PO Q6H PRN PRN PRN Reason: FEVER Last Admin: 03/01/20 11:49 Dose: 650 mg Documented by: Al Hydroxide/Mg Hydroxide (Mylanta Ii) 30 ml PO Q6H PRN PRN PRN Reason: Gastric Burning Atorvastatin Calcium (Lipitor) 40 mg PO QHS [facility] Last Admin: 03/01/20 22:58 Dose: 40 mg Documented by: Dextrose (D50w Syringe) 0 gm IV X1 PRN; Protocol PRN Reason: Hypoglycemia Donepezil HCl (Aricept) 10 mg PO DAILY [facility] Last Admin: 03/02/20 10:10 Dose: 10 mg Documented by: Fluoxetine HCl (Prozac) 40 mg PO DAILY [facility] Last Admin: 03/02/20 10:10 Dose: 40 mg Documented by: Glucagon () 1 mg IM .X1 PRN PRN Reason: Hypoglycemia Hydralazine HCl (Apresoline Iv) 5 mg IV Q6H PRN PRN PRN Reason: BLOOD PRESSURE Last Admin: 03/01/20 13:04 Dose: 5 mg Documented by: Hydroxyzine Pamoate (Vistaril Pamoate Capsule) 25 mg PO QHS [facility] Last Admin: 03/01/20 22:59 Dose: 25 mg Documented by: Pantoprazole Sodium 40 mg/ (Sodium Chloride) 110 mls @ 330 mls/hr IV Q24 [facility] Last Infusion: 03/02/20 10:02 Dose: Infused Documented by: Dextrose () 1,000 mls @ 75 mls/hr IV .[id number] [facility] Last Admin: 03/02/20 05:26 Dose: 75 mls/hr Documented by: Insulin Human Lispro (Humalog Kwikpen (Bkc)) 0 unit SC Q6 [facility]; Protocol Last Admin: 03/02/20 11:22 Dose: 4 units Documented by: Latanoprost (Xalatan Opthalmic) 1 drop EACH EYE QHS [facility] Last Admin: 03/01/20 23:00 Dose: 1 drop Documented by: Levothyroxine Sodium (Synthroid) 125 mcg PO DAILY@0600 [facility] Last Admin: 03/02/20 05:25 Dose: 125 mcg Documented by: Melatonin (Melatonin) 3 mg PO QHS PRN PRN Reason: SLEEP Metoprolol Tartrate (Lopressor (Beta Mauricio)) 50 mg PO BID [facility] Last Admin: 03/02/20 10:10 Dose: 50 mg Documented by: Metoprolol Tartrate (Lopressor (Beta Mauricio)) 5 mg IV Q6H PRN PRN PRN Reason: BLOOD PRESSURE Last Admin: 03/01/20 11:14 Dose: 5 mg Documented by: Morphine Sulfate () 2 - 4 mg IV Q2H PRN PRN PRN Reason: Pain Score 1-10/10 Last Admin: 03/02/20 03:44 Dose: 2 mg Documented by: Morphine Sulfate () 2 - 4 mg IV Q2H PRN PRN PRN Reason: Pain Score 1-10/10 Ondansetron HCl (Zofran) 4 mg IV Q8H PRN PRN PRN Reason: NAUSEA/VOMITING Risperidone (Risperdal) 2 mg PO QHS [facility] Last Admin: 03/01/20 22:59 Dose: 2 mg Documented by: Sodium Chloride () 10 - 40 ml IV UD PRN PRN Reason: SALINE FLUSH Last Admin: 03/02/20 09:42 Dose: 10 ml Documented by: Timolol Maleate (Timoptic) 1 drop EACH EYE DAILY [facility] Last Admin: 03/02/20 09:44 Dose: 1 drop Documented by: Trazodone HCl (Desyrel) 200 mg PO QHS [facility] Last Admin: 03/01/20 22:58 Dose: 200 mg Documented by: Assessment/Plan All Active Problems (Last Reviewed 03/08/18 @ 10:[address] Bob Paulson MD) Ileus (Acute) Small bowel obstruction (Acute) Rhinitis (Acute) Hyperkalemia (Acute) Elevated serum creatinine (Acute) Abdominal pain (Acute) Chest pain, precordial (Acute) Family history of coronary artery disease (Acute) BERT prerenal Hypernatremia Small bowel obstruction with possible adenocarcinoma s/p ileocecectomy increase d5w to 125 ml/hr if no improvement in renal failure will order further work-up. For now check FENA and a UA. Lisinopril was held by the primary team. avoid Nephrotoxins. The patient is NPO for now Thanks for consult.Will f/u
--- NOTE | 2020-03-02 14:08 | EKG12_ITS ---
Test Reason : PROLONG QT Blood Pressure : / mmHG Vent. Rate : 096 BPM Atrial Rate : 096 BPM P-R Int : 126 ms QRS Dur : 076 ms QT Int : 342 ms P-R-T Axes : 008 -16 017 degrees QTc Int : 432 ms Normal sinus rhythm Inferior infarct (cited on or before 26-FEB-2020) Abnormal ECG When compared with ECG of 26-FEB-2020 12:40, Vent. rate has increased BY 40 BPM T wave inversion now evident in Inferior leads Confirmed by VICTOR MANUEL MONGE, DARNELL ([id number]), acquisition editor ASIF GAONA ([id number]) on 03/05/2020 9:43:18 AM Referred By: YARA Confirmed By:YRIS RUSH MD
[2020-03-02 15:10] LABS: Bacteria 0 SEEN /hpf (None Seen); Mucous, Urine 0 SEEN /hpf (<or=2+); Squamous Epithelial Cells - UA 0 SEEN /hpf (0-5)
[2020-03-02 15:20] LABS: Color, Urine Yellow (Yellow); Glucose, Dipstick 1000 mg/dl (Normal); Ketone-Dipstick 15 mg/dl (Negative); Leukocyte Esterase-Dipstick 25 /ul (Negative); Nitrite-Dipstick Negative (Negative); Occult Blood-Urine 25 /ul (Negative); Protein-Dipstick 30 mg/dl (Negative); Urine Clarity Clear (Clear); Urine Urobilinogen 1 mg/dl (Normal)
[2020-03-02 15:21] LABS: Urine Bilirubin Dipstick 3 mg/dL (Negative); Urine Sodium 11 mmol/L (Not Establ.)
[2020-03-02 15:26] LABS: White Blood Cells 0-5 SEEN /hpf (0-5)
[2020-03-02 15:27] LABS: Hyaline Cast 5-10 SEEN /lpf (0-5); Red Blood Cells-Urine 0-5 SEEN /hpf (0-5)
[2020-03-02 17:16] LABS: Bedside Glucose 389 mg/dL (70-110)
[2020-03-02 18:38] LABS: Anion Gap 8 (5-15); BUN 67 mg/dL (7-18); BUN/Creat Ratio 36.2 RATIO (10-20); Calcium,Total 8.4 mg/dL (8.5-10.1); Chloride 124 mmol/L (98-107); Creatinine, Serum 1.85 mg/dL (0.70-1.30); EST Glomerular Filtration Rate 39 mL/min (>60); Est Glom Filt Rate - Afr Amer 47 mL/min (>60); Estimated Creatinine Clearance 39.57 ml/min; Glucose 502 mg/dL (74-106); Potassium 3.8 mmol/L (3.5-5.1); Sodium Level 152 mmol/L (136-145)
[2020-03-02] MEDS: Insulin Lispro 100 UNIT/ML INSULN.PEN 10 UNIT SC (18:49)
[2020-03-02] MEDS: Atorvastatin Calcium 40 MG Tablet PO (23:48)
[2020-03-02] MEDS: hydrOXYzine PAM 25 MG Capsule PO (23:48)
[2020-03-02] MEDS: traZODone 100 MG Tablet PO (23:48)
[2020-03-02] MEDS: Latanoprost 0.005% 1 Bottle 1 DRP EACH EYE (23:49)
[2020-03-02 23:56] LABS: Bedside Glucose 418 mg/dL (70-110)
[2020-03-03] VITALS (16 sets, daily range): BP systolic 73–132; BP diastolic 43–73; PULSE 64–128; RESP 8–32; TEMP 36.6–39.6; O2SAT 72–95
--- NOTE | 2020-03-03 02:25 | NURSING ---
Handoff given to Joanna Meyer who will take over care of this patient.
[2020-03-03] MEDS: Levothyroxine 125 MCG Tablet PO (05:40)
--- NOTE | 2020-03-03 05:55 | RAD_ITS ---
STUDY: X-RAY - ABDOMEN/PELVIS REASON FOR EXAM: Male, 69 years old. Ileus TECHNIQUE: Single AP view of the abdomen / pelvis. COMPARISON: Comparison is made with prior examination dated March 02, 2020 at 4:47 AM. FINDINGS: Mild left basilar atelectasis. Surgical clips are once again seen in the mid abdomen. There is small bowel gaseous distention. Oral contrast is seen within the decompressed colon. Distal small bowel obstruction should be ruled out. The visualized liver, spleen and kidneys are grossly normal in size and morphology. Normal soft tissue structures. There are diffuse degenerative changes of the visualized lumbar spine. RAD/Abdomen Single View IMPRESSION: Stable appearance of the dilated small bowel loops with a decompressed colon containing oral contrast. Electronically Signed: Maxx Bradford, at 8:10 EDT , Service support ,
[2020-03-03 05:56] LABS: Bedside Glucose > 500 mg/dL (70-110)
[2020-03-03 06:14] LABS: Absolute Lymphocyte Count 0.82 X10^3/uL (0.83-4.51); Absolute Neutrophil Count 2.1 X10^3/uL (2.0-7.7); Basophil# 0.02 X10^3/uL; Basophil% 0.6 % (0-1); Eosinophil# 0.01 X10^3/uL; Eosinophils% 0.3 % (0-5); Hemoglobin 15.1 g/dL (13.0-16.5); Lymphocyte # 0.82 X10^3/ul (4.0); Lymphocyte % 25.4 % (19-41); Mean Corp Hgb Conc 32.1 g/dL (32-36); Mean Corpuscular Hgb 30.5 pg (27.0-32.0); Mean Corpuscular Volume 94.9 fL (80-94); Mean Platelet Vol. 9.9 fl (6.2-12.0); Monocyte# 0.29 X10^3/uL; NRBC Flagged by Analyzer 0 % (0-5); Neutrophil # 2.06 X10^3/uL (2.7-7.7); Neutrophil % 63.8 % (47-70); POSITIVE MORPHOLOGY YES; Platelet Count 131 K/mm3 (150-450); RBC Distribution Width CV 14.6 % (11.6-14.6); RBC Distribution Width SD 51.6 fl (35.1-43.9); Red Blood Count 4.95 M/mm3 (4.6-6.2); White Blood Count 3.2 K/mm3 (4.4-11.0)
[2020-03-03 06:21] LABS: Differential Indicated SCAN CRITERIA MET
[2020-03-03] MEDS: Insulin Lispro 100 UNIT/ML INSULN.PEN 20 UNIT SC (06:48)
[2020-03-03 07:10] LABS: ALB/GLOB Ratio 0.6 RATIO (0.9-2.4); AST(SGOT) 33 U/L (15-37); Alanine Aminotransfer ALT/SGPT 21 U/L (16-61); Albumin, Serum 2.3 g/dL (3.2-5.0); Alkaline Phosphatase 68 U/L (45-117); Anion Gap 9 (5-15); BUN 78 mg/dL (7-18); BUN/Creat Ratio 39.8 RATIO (10-20); Chloride 121 mmol/L (98-107); Creatinine, Serum 1.96 mg/dL (0.70-1.30); EST Glomerular Filtration Rate 36 mL/min (>60); Est Glom Filt Rate - Afr Amer 44 mL/min (>60); Estimated Creatinine Clearance 37.35 ml/min; Glucose 549 mg/dL (74-106); Protein, Total 6.3 g/dL (6.4-8.2); Sodium Level 151 mmol/L (136-145)
[2020-03-03] MEDS: Bisacodyl 10 MG Suppository RECTAL (08:43)
--- NOTE | 2020-03-03 08:52 | CT_ITS ---
STUDY: CT ABDOMEN AND PELVIS WITHOUT CONTRAST REASON FOR EXAM: Male, 69 years old. ILEUS VS OBSTRUCTION -- DIFFUSE ABD Pain, elevated CREAT, RECENT BOWEL OBSTRUCTION/CONSTIPATION RADIATION DOSAGE (If Supplied By Facility): CTDIvol = ( 20.56 ) mGy, DLP = ( 1222.82 ) mGycm TECHNIQUE: Transaxial images were obtained from the dome of the diaphragm to the symphysis pubis without oral contrast, and without intravenous contrast. Sagittal and coronal images were reconstructed. Individualized dose optimization techniques were used for this CT. COMPARISON: Comparison is made with prior examination dated February 26, 2020. FINDINGS: There now is evidence of patchy infiltrates at the lung bases versus atelectasis. Coronary artery calcification. Small amount of free intraperitoneal air overlying the anterior right upper quadrant most likely secondary to recent intra-abdominal surgery. Normal liver. The gallbladder is filled with high attenuation most likely secondary to vicarious excretion of contrast. Normal spleen. There is diffuse atrophy of the pancreas. Normal bilateral adrenal glands. Normal right kidney. Normal left kidney. Normal visualized stomach. Multiple dilated small bowel loops down to the region of the right lower quadrant. There is evidence of increased markings with this soft tissue thickening in the region of the terminal ileum. This may represent postoperative changes. The terminal ileum is circumferentially narrowed with a thickened wall and increased markings in the surrounding fat. This is seen on axial images #168 through 189. Oral contrast is seen within a decompressed colon. Sigmoid diverticulosis. There is non-visualization of the appendix. There is diffuse atherosclerotic calcification of the abdominal aorta and the major visceral branches., without a demonstrated aneurysm. Normal inferior vena cava. Normal retroperitoneum. A Vale catheter is seen within the decompressed urinary bladder. There is diffuse bladder wall thickening. Surgical incision and surgical clips are seen in the mid anterior and lower abdominal wall with postoperative changes. There are diffuse degenerative changes of the visualized lumbar spine. There is loss of the normal lumbar lordosis. CT/Abdomen/Pelvis without Cont IMPRESSION: Increased markings at the lung bases suggestive of atelectasis versus postoperative infiltrates. Small amount of free intraperitoneal air most likely secondary to recent intra-abdominal surgery. Small bowel dilatation down to the terminal ileum where there is evidence of circumferential wall thickening of the terminal ileum with increased markings in the surrounding peritoneal fat. The colon is decompressed with contrast within it. Postoperative changes involving the anterior abdominal wall. The bladder is decompressed with diffuse bladder wall thickening. Electronically Signed: Maxx Bradford, at 9:40 EDT , Service support ,
--- NOTE | 2020-03-03 08:59 | PCM.PN.SRG ---
Patient Problems: Active and Suspected Problems (Last Reviewed 03/08/18 @ 10:[address] Bob Paulson MD) Small bowel obstruction (Acute) Rhinitis (Acute) Hyperkalemia (Acute) Elevated serum creatinine (Acute) Abdominal pain (Acute) Subjective: Pt denies flatus, c/o abd pain but rates it 2/10, tachypneic/tachycardic, increased creatinine but good urine output, KUB still shows dilated small bowel with contrast in the colon, sodium improved to 151, blood sugar greater than 500 - Physical Exam Vitals/I&O's: Vital Signs Temp Pulse Resp BP Pulse Ox 99.1 F 101 H 20 H 128/69 H 93 03/03/20 07:54 03/03/20 07:54 03/03/20 07:54 03/03/20 07:54 03/03/20 07:55 Oxygen Flow Rate (L/min) 2 Oxygen Delivery Method Nasal Cannula Weight: 201 lb 15.095 oz Body Mass Index (BMI) 29.8 Finger Stick Blood Glucose 302 Intake and Output for Last 24 Hours 03/01/20 03/02/20 03/03/20 23:59 23:59 23:59 Intake Total 2234.17 / 2234.17 3458.33 / 3458.33 1020 / 1020 Output Total 1800 / 1800 1225 / 1225 230 / 230 Balance 434.17 / 434.17 2233.33 / 2233.33 790 / 790 General: - - More somnolent but does respond to questions but quickly falls asleep Lungs: Tachypneic Cardiovascular: Tachycardic Abdomen: Soft, Distended - mild, Tender - Near incisions clean dry and intact with yenny, small openings in the lower incision serosanguineous drainage, no peritoneal signs Laboratory Results 03/02/20 11:19: POC Glucose 356 H 03/02/20 14:55: Urine Creatinine 225.00 03/02/20 14:55: Urine Color Yellow, Urine Clarity Clear, Urine pH 6.0, Ur Specific [place] 1.010, Urine Protein 30 H, Urine Glucose (UA) 1000 H, Urine Ketones 15 H, Urine Occult Blood 25 H, Urine Nitrite Negative, Urine Bilirubin 3 H, Urine Urobilinogen 1 H, Ur Leukocyte Esterase 25 H, Urine RBC 0-5 SEEN, Urine WBC 0-5 SEEN, Ur Squamous Epith Cells 0 SEEN, Urine Bacteria 0 SEEN, Hyaline Casts 5-10 SEEN, Urine Mucus 0 SEEN 03/02/20 14:55: Ur Random Sodium 11 03/02/20 16:45: POC Glucose 389 H 03/02/20 18:06: Sodium 152 H, Potassium 3.8, Chloride 124 H, Carbon Dioxide 20.0 L, Anion Gap 8, BUN 67 H, Creatinine 1.85 H, Estim Creat Clear Calc 39.57, Est GFR (MDRD) Af Amer 47 L, Est GFR (MDRD) Non-Af 39 L, BUN/Creatinine Ratio 36.2 H, Glucose 502 H*, Calcium 8.4 L 03/02/20 23:52: POC Glucose 418 H 03/03/20 05:39: POC Glucose > 500 H* 03/03/20 05:56: WBC 3.2 L, RBC 4.95, Hgb 15.1, Hct 47.0, MCV 94.9 H, MCH 30.5, MCHC 32.1, RDW Std Deviation 51.6 H, RDW Coeff of Indra 14.6, Plt Count 131 L, MPV 9.9, Immature Gran % (Auto) 0.900, Neut % (Auto) 63.8, Lymph % (Auto) 25.4, Harrison % (Auto) 9.0, Eos % (Auto) 0.3, Baso % (Auto) 0.6, Absolute Neuts (auto) 2.1, Absolute Lymphs (auto) 0.82 L, Nucleated RBC % 0 03/03/20 05:56: Sodium 151 H, Potassium 4.0, Chloride 121 H, Carbon Dioxide 21.0, Anion Gap 9, BUN 78 H, Creatinine 1.96 H, Estim Creat Clear Calc 37.35, Est GFR (MDRD) Af Amer 44 L, Est GFR (MDRD) Non-Af 36 L, BUN/Creatinine Ratio 39.8 H, Glucose 549 H*, Calcium 8.0 L, Total Bilirubin 1.20 H, AST 33, ALT 21, Alkaline Phosphatase 68, Total Protein 6.3 L, Albumin 2.3 L, Globulin 4.0, Albumin/Globulin Ratio 0.6 L Current Medications Acetaminophen (Tylenol) 650 mg PO Q6H PRN PRN PRN Reason: FEVER Last Admin: 03/01/20 11:49 Dose: 650 mg Documented by: Al Hydroxide/Mg Hydroxide (Mylanta Ii) 30 ml PO Q6H PRN PRN PRN Reason: Gastric Burning Atorvastatin Calcium (Lipitor) 40 mg PO QHS [facility] Last Admin: 03/02/20 23:48 Dose: 40 mg Documented by: Dextrose (D50w Syringe) 0 gm IV X1 PRN; Protocol PRN Reason: Hypoglycemia Donepezil HCl (Aricept) 10 mg PO DAILY [facility] Last Admin: 03/02/20 10:10 Dose: 10 mg Documented by: Glucagon () 1 mg IM .X1 PRN PRN Reason: Hypoglycemia Hydralazine HCl (Apresoline Iv) 5 mg IV Q6H PRN PRN PRN Reason: SBP>160 Hydroxyzine Pamoate (Vistaril Pamoate Capsule) 25 mg PO QHS [facility] Last Admin: 03/02/20 23:48 Dose: 25 mg Documented by: Pantoprazole Sodium 40 mg/ (Sodium Chloride) 110 mls @ 330 mls/hr IV Q24 [facility] Last Infusion: 03/02/20 10:02 Dose: Infused Documented by: Piperacillin Sod/Tazobactam (Sod 3.375 gm/ Sodium Chloride) 50 mls @ 12.5 mls/hr IV Q8 [facility] Insulin Glargine (Lantus (Bkc)) 10 units SC BID [facility] Insulin Human Lispro (Humalog Kwikpen (Bkc)) 0 unit SC Q6 [facility]; Protocol Last Admin: 03/03/20 06:37 Dose: Not Given Documented by: Latanoprost (Xalatan Opthalmic) 1 drop EACH EYE QHS [facility] Last Admin: 03/02/20 23:49 Dose: 1 drop Documented by: Levothyroxine Sodium (Synthroid) 125 mcg PO DAILY@0600 [facility] Last Admin: 03/03/20 05:40 Dose: 125 mcg Documented by: Melatonin (Melatonin) 3 mg PO QHS PRN PRN Reason: SLEEP Metoprolol Tartrate (Lopressor (Beta Mauricio)) 50 mg PO BID [facility] Last Admin: 03/02/20 23:48 Dose: 50 mg Documented by: Metoprolol Tartrate (Lopressor (Beta Mauricio)) 5 mg IV Q6H PRN PRN PRN Reason: BLOOD PRESSURE Last Admin: 03/01/20 11:14 Dose: 5 mg Documented by: Morphine Sulfate () 2 - 4 mg IV Q2H PRN PRN PRN Reason: Pain Score 1-10/10 Last Admin: 03/02/20 15:40 Dose: 2 mg Documented by: Morphine Sulfate () 2 - 4 mg IV Q2H PRN PRN PRN Reason: Pain Score 1-10/10 Ondansetron HCl (Zofran) 4 mg IV Q8H PRN PRN PRN Reason: NAUSEA/VOMITING Sodium Chloride () 10 - 40 ml IV UD PRN PRN Reason: SALINE FLUSH Last Admin: 03/02/20 17:50 Dose: 10 ml Documented by: Timolol Maleate (Timoptic) 1 drop EACH EYE DAILY [facility] Last Admin: 03/02/20 09:44 Dose: 1 drop Documented by: Trazodone HCl (Desyrel) 100 mg PO QHS [facility] Last Admin: 03/02/20 23:48 Dose: 100 mg Documented by: Medical Necessity - Tobacco Use Smoking Status: Former smoker Tobacco Use: Non-smoker Assessment/Plan All Active Problems (Last Reviewed 03/08/18 @ 10:[address] Bob Paulson MD) Ileus (Acute) Small bowel obstruction (Acute) Rhinitis (Acute) Hyperkalemia (Acute) Elevated serum creatinine (Acute) Abdominal pain (Acute) Chest pain, precordial (Acute) Family history of coronary artery disease (Acute) 69-year-old male POD5 s/p ex lap, ileocecectomy due to adenocarcinoma - SB, with cecal mass, SB mesentery mass, liver mass palpated 1. NPO until +flatus, await final pathology, KUB showed dilated small bowel contrast in the colon as well as the rectum 2. dulcolax suppository 3. Encourage I-S use 4. hypernatremia- IVF changed yesterday to D5 W however sodium to 151 5. Acute kidney injury creatinine up to 1.9 from 1.8, good urine output Fena suggest pre renal, checking CT abdomen pelvis without contrast Addendum: pathology c/w sb adenocarcinoma with multiple metastatic tumor deposits Fina Marcos M.D. Pager: [phone] [facility] [address] [place] [address], [facility], [address] [place] [id number] Office: [phone]
--- NOTE | 2020-03-03 09:10 | RAD_ITS ---
STUDY: X-RAY CHEST REASON FOR EXAM: Male, 69 years old. SHORT OF BREATH, URI TECHNIQUE: AP and lateral views of the chest. COMPARISON: Comparison is made with prior examination dated March 01, 2020. FINDINGS: EKG electrodes are seen. Persistent atelectasis and/or infiltrate at the lung bases likely worse on the right side. This has progressed as compared to prior study. There is no demonstrated pleural abnormality. Normal size heart. Normal mediastinum and candy. Normal visualized pulmonary arteries. There is atherosclerotic calcification of the aortic arch with tortuosity. Normal visualized thoracic spine. Normal visualized ribs, clavicles, and shoulders. There is no demonstrated abnormality of the visualized soft tissue structures of the upper abdomen. RAD/Chest PA and Lateral IMPRESSION: Mild progression of the linear densities at the lung bases slightly worse on the right side suggestive of bibasilar atelectasis. Electronically Signed: Maxx Bradford, at 9:42 EDT , Service support ,
[2020-03-03] MEDS: 0.9% Saline Lock 10 ML Syringe IV ×2 (09:50→10:56)
--- NOTE | 2020-03-03 09:58 | CT_ITS ---
STUDY: CT BRAIN WITHOUT CONTRAST REASON FOR EXAM: Male, 69 years old. WEAKNESS RADIATION DOSAGE (If Supplied By Facility): CTDIvol = ( 44.99 ) mGy, DLP = ( 829.85 ) mGycm TECHNIQUE: Transaxial CT imaging of the brain was performed without administration of intravenous contrast material. Individualized dose optimization techniques were used for this CT. COMPARISON: No relevant priors. FINDINGS: Normal soft tissue structures. Normal calvarium. Atherosclerotic calcification of the cavernous portions of the internal carotid arteries. There is a 4.7 mm rounded density in the right side of the [place]. This may represent either ectasia of the origin of the right middle cerebral artery versus a small aneurysm. Correlation with the CTA of the head is recommended for further evaluation when the patient''s condition permits. There is mild cerebral atrophy with widening of the extra-axial spaces and ventricular dilatation. There are areas of decreased attenuation within the white matter tracts of the supratentorial brain, consistent with microvascular disease changes. Normal basal ganglia and thalami. Normal brainstem. Normal cerebellum. There is no intracranial hemorrhage. There are no findings of an acute ischemic infarction. Normal visualized paranasal sinuses. CT/Brain/Head without Contrast IMPRESSION: Chronic involutional changes of the brain. 4.7 mm rounded density in the right side of the [place]. This may represent either ectasia or possible aneurysm. Correlation with CTA of the brain is recommended when the patient''s condition permits. Electronically Signed: Maxx Bradford, at 10:33 EDT , Service support ,
[2020-03-03] MEDS: Enoxaparin 30 MG/0.3 ML Syringe SC (10:56)
[2020-03-03] MEDS: Timolol 0.25% 5ML OPTH.BTL 1 DRP EACH EYE (10:56)
[2020-03-03] MEDS: Furosemide 40 MG/4 ML Vial IV (10:56)
[2020-03-03] MEDS: Insulin Lispro 100 UNIT/ML INSULN.PEN SC (11:28)
[2020-03-03 11:45] LABS: Bedside Glucose 333 mg/dL (70-110)
--- NOTE | 2020-03-03 11:49 | PCM.PN.HOSP ---
<Juanjo Degroot - Last Filed: 03/03/20 11:49> Patient Problems: Active and Suspected Problems (Last Reviewed 03/08/18 @ 10:[address] Bob Paulson MD) Small bowel obstruction (Acute) Rhinitis (Acute) Hyperkalemia (Acute) Elevated serum creatinine (Acute) Abdominal pain (Acute) Reason for Visit: SBO Subjective: The patient is more lethargic today. He was able to successfully answer questions showing he is alert to person place and time. He is unable to accurately follow commands. He seems weaker on the right side but it is unclear as he cannot appropriately follow commands. He is coughing and having difficulty clearing oral secretions, requiring suction this AM. He is somewhat SOB. He has ongoing abd pain, and nausea. I also spent time on the phone with the patients discussing his multiple problems and treatment options. I recommended palliative care which she was agreeable to. Vitals/I&O's: Vital Signs Temp Pulse Resp BP Pulse Ox 99.7 F H 119 H 22 H 132/73 H 92 03/03/20 10:44 03/03/20 10:51 03/03/20 10:44 03/03/20 10:44 03/03/20 10:44 Oxygen Flow Rate (L/min) 2 Oxygen Delivery Method Nasal Cannula Weight: 201 lb 15.095 oz Body Mass Index (BMI) 29.8 Finger Stick Blood Glucose 302 Intake and Output for Last 24 Hours 03/01/20 03/02/20 03/03/20 23:59 23:59 23:59 Intake Total 2234.17 / 2234.17 3458.33 / 3458.33 1130.0 / 1130.0 Output Total 1800 / 1800 1225 / 1225 230 / 230 Balance 434.17 / 434.17 2233.33 / 2233.33 900.0 / 900.0 General: Alert, Oriented x3, Cooperative, Lethargic HEENT: Atraumatic, PERRLA, EOMI, Normocephalic Oral: - - audible oral pharyngeal secretions Neck: Supple, No JVD, Negative Carotid Bruits Lungs: Clear to auscultation, Normal air movement Cardiovascular: Regular rate, No murmurs Abdomen: Soft, Hypoactive Bowel Sounds, Tender Extremities: No edema, Capillary Refill Less than 3 Seconds Skin: No rashes, No breakdown Musculoskeletal: No Tenderness to Palpation of Joints or Extremities Neurological: Cranial nerves II-XII grossly intact, - - not following commands. Psych/Mental Status: Normal Affect, Appropriate Laboratory Results 03/02/20 14:55: Urine Creatinine 225.00 03/02/20 14:55: Urine Color Yellow, Urine Clarity Clear, Urine pH 6.0, Ur Specific [place] 1.010, Urine Protein 30 H, Urine Glucose (UA) 1000 H, Urine Ketones 15 H, Urine Occult Blood 25 H, Urine Nitrite Negative, Urine Bilirubin 3 H, Urine Urobilinogen 1 H, Ur Leukocyte Esterase 25 H, Urine RBC 0-5 SEEN, Urine WBC 0-5 SEEN, Ur Squamous Epith Cells 0 SEEN, Urine Bacteria 0 SEEN, Hyaline Casts 5-10 SEEN, Urine Mucus 0 SEEN 03/02/20 14:55: Ur Random Sodium 11 03/02/20 16:45: POC Glucose 389 H 03/02/20 18:06: Sodium 152 H, Potassium 3.8, Chloride 124 H, Carbon Dioxide 20.0 L, Anion Gap 8, BUN 67 H, Creatinine 1.85 H, Estim Creat Clear Calc 39.57, Est GFR (MDRD) Af Amer 47 L, Est GFR (MDRD) Non-Af 39 L, BUN/Creatinine Ratio 36.2 H, Glucose 502 H*, Calcium 8.4 L 03/02/20 23:52: POC Glucose 418 H 03/03/20 05:39: POC Glucose > 500 H* 03/03/20 05:56: WBC 3.2 L, RBC 4.95, Hgb 15.1, Hct 47.0, MCV 94.9 H, MCH 30.5, MCHC 32.1, RDW Std Deviation 51.6 H, RDW Coeff of Indra 14.6, Plt Count 131 L, MPV 9.9, Immature Gran % (Auto) 0.900, Neut % (Auto) 63.8, Lymph % (Auto) 25.4, Pike % (Auto) 9.0, Eos % (Auto) 0.3, Baso % (Auto) 0.6, Absolute Neuts (auto) 2.1, Absolute Lymphs (auto) 0.82 L, Nucleated RBC % 0 03/03/20 05:56: Sodium 151 H, Potassium 4.0, Chloride 121 H, Carbon Dioxide 21.0, Anion Gap 9, BUN 78 H, Creatinine 1.96 H, Estim Creat Clear Calc 37.35, Est GFR (MDRD) Af Amer 44 L, Est GFR (MDRD) Non-Af 36 L, BUN/Creatinine Ratio 39.8 H, Glucose 549 H*, Calcium 8.0 L, Total Bilirubin 1.20 H, AST 33, ALT 21, Alkaline Phosphatase 68, Total Protein 6.3 L, Albumin 2.3 L, Globulin 4.0, Albumin/Globulin Ratio 0.6 L 03/03/20 11:26: POC Glucose 333 H Current Medications Acetaminophen (Tylenol) 650 mg PO Q6H PRN PRN PRN Reason: FEVER Last Admin: 03/01/20 11:49 Dose: 650 mg Documented by: Al Hydroxide/Mg Hydroxide (Mylanta Ii) 30 ml PO Q6H PRN PRN PRN Reason: Gastric Burning Atorvastatin Calcium (Lipitor) 40 mg PO QHS [facility] Last Admin: 03/02/20 23:48 Dose: 40 mg Documented by: Dextrose (D50w Syringe) 0 gm IV X1 PRN; Protocol PRN Reason: Hypoglycemia Donepezil HCl (Aricept) 10 mg PO DAILY [facility] Last Admin: 03/03/20 10:16 Dose: Not Given Documented by: Enoxaparin Sodium (Lovenox) 30 mg SC DAILY [facility] Last Admin: 03/03/20 10:56 Dose: 30 mg Documented by: Glucagon () 1 mg IM .X1 PRN PRN Reason: Hypoglycemia Hydralazine HCl (Apresoline Iv) 5 mg IV Q6H PRN PRN PRN Reason: SBP>160 Pantoprazole Sodium 40 mg/ (Sodium Chloride) 110 mls @ 330 mls/hr IV Q24 [facility] Last Infusion: 03/03/20 11:00 Dose: Infused Documented by: Piperacillin Sod/Tazobactam (Sod 3.375 gm/ Sodium Chloride) 50 mls @ 12.5 mls/hr IV Q8 [facility] Insulin Glargine (Lantus (Bkc)) 10 units SC BID [facility] Last Admin: 03/03/20 11:27 Dose: 10 u Documented by: Insulin Human Lispro (Humalog Kwikpen (Bk)) 0 unit SC Q6 [facility]; Protocol Last Admin: 03/03/20 11:28 Dose: 12 units Documented by: Latanoprost (Xalatan Opthalmic) 1 drop EACH EYE QHS [facility] Last Admin: 03/02/20 23:49 Dose: 1 drop Documented by: Levothyroxine Sodium (Synthroid) 125 mcg PO DAILY@0600 [facility] Last Admin: 03/03/20 05:40 Dose: 125 mcg Documented by: Melatonin (Melatonin) 3 mg PO QHS PRN PRN Reason: SLEEP Metoprolol Tartrate (Lopressor (Beta Mauricio)) 50 mg PO BID [facility] Last Admin: 03/03/20 10:16 Dose: Not Given Documented by: Metoprolol Tartrate (Lopressor (Beta Mauricio)) 5 mg IV Q6H PRN PRN PRN Reason: BLOOD PRESSURE Last Admin: 03/01/20 11:14 Dose: 5 mg Documented by: Morphine Sulfate () 2 - 4 mg IV Q2H PRN PRN PRN Reason: Pain Score 1-10/10 Last Admin: 03/02/20 15:40 Dose: 2 mg Documented by: Morphine Sulfate () 2 - 4 mg IV Q2H PRN PRN PRN Reason: Pain Score 1-10/10 Ondansetron HCl (Zofran) 4 mg IV Q8H PRN PRN PRN Reason: NAUSEA/VOMITING Sodium Chloride () 10 - 40 ml IV UD PRN PRN Reason: SALINE FLUSH Last Admin: 03/03/20 10:56 Dose: 30 ml Documented by: Timolol Maleate (Timoptic) 1 drop EACH EYE DAILY [facility] Last Admin: 03/03/20 10:56 Dose: 1 drop Documented by: Trazodone HCl (Desyrel) 50 mg PO QHS [facility] STROKE Vital Signs/Narrative: Vital Signs Temp Pulse Resp BP Pulse Ox 03/03/20 10:51 119 H 03/03/20 10:44 99.7 F H 119 H 22 H 132/73 H 92 03/03/20 07:55 93 03/03/20 07:54 99.1 F 101 H 20 H 128/69 H 93 Medical Necessity - Tobacco Use Smoking Status: Former smoker Tobacco Use: Non-smoker Assessment/Plan All Active Problems (Last Reviewed 03/08/18 @ 10:[address] Bob Paulson MD) Ileus (Acute) Small bowel obstruction (Acute) Rhinitis (Acute) Hyperkalemia (Acute) Elevated serum creatinine (Acute) Abdominal pain (Acute) Chest pain, precordial (Acute) Family history of coronary artery disease (Acute) 1. SBO - s/p exp lap with ileocecectomy POD#5 - multiple lesions, cecal, mesentery, liver. [id number] 1240, CEA 0.9.Hgb stable. Continue PPI as he had some irritation with an NG tube. -pt not clearing mucus secretions -CXR with increased markings in the lung bases -CT abdomen shows possible infiltrates in the lungs, post op changes, decompressed colon with contrast in it. -Pulmonary medicine following -started on zosyn to cover abdominal pathology and possible aspiration pna -Na improved on d5w, this was however slowed due to hyperglycemia. -dec platelets and inc tbili, with leukopenia, tachycardia, increased fever - suspect sepsis. -Blood cultures pending -Resp panel negative. 2. Acute metabolic encephalopathy - pt more lethargic and not following commands. CT brain shows 4.7mm density possibly ectasia or aneurysm : CTA recommended however cannot have contrast at this time. Defer MRI for now. 3. BERT - Prerenal azotemia per FENA. On D5W. SACHIN held. 4. Rhinitis - resolved 5. DMt2 - SSI maximized. Hyperglycemic with D5W 6. HTN - prn hydralazine, metoprolol, hold SACHIN 7. hypothyroidism - synthroid 8. dementia- aricept, prozac, risperdal, trazodone. DVT ppx: SCDs. Palliative consult. This patient was seen by Juanjo Degroot PA-C under the supervision of Doctor Carlton <Clyde Vincent - Last Filed: 03/03/20 16:34> Reason for Visit: Small bowel obstruction. Fever, tachycardia and tachypnea possible sepsis Subjective: Patient was seen in the morning, noon and afternoon time. Patient was more lethargic although is able to answer questions on command, mainly direct questions; in yes or no. Is short of breath, tachypnea and tachycardia. Temperature 101.3. Heart pressure 123/69 although his blood pressure was 157/97 yesterday. Passed minimal gas. Vitals/I&O's: Vital Signs Temp Pulse Resp BP Pulse Ox 103 F H 64 8 L 73/43 L 72 03/03/20 15:59 03/03/20 15:59 03/03/20 15:59 03/03/20 15:45 03/03/20 15:59 Oxygen Flow Rate (L/min) 15 Oxygen Delivery Method Non-Rebreather Weight: 201 lb 15.095 oz Body Mass Index (BMI) 29.8 Finger Stick Blood Glucose 302 Intake and Output for Last 24 Hours 03/01/20 03/02/20 03/03/20 23:59 23:59 23:59 Intake Total 2234.17 / 2234.17 3458.33 / 3458.33 1180.0 / 1180.0 Output Total 1800 / 1800 1225 / 1225 680 / 680 Balance 434.17 / 434.17 2233.33 / 2233.33 500.0 / 500.0 General: Confused, Disoriented, Lethargic HEENT: Atraumatic, PERRLA, EOMI, Normocephalic Neck: Supple, No JVD, Negative Carotid Bruits Lungs: Diminished - Air entry diminished in bilateral lung bases., Short of Breath, Tachypneic, Using Accessory Muscles Cardiovascular: Regular rate, Regular Rhythm, No murmurs Abdomen: Soft, Hypoactive Bowel Sounds, Distended, Tender Extremities: No edema, Capillary Refill Less than 3 Seconds Skin: No rashes, No breakdown Musculoskeletal: Arthritic Changes Neurological: Cranial nerves II-XII grossly intact, - - not following commands. Patient does not follow command for detailed neuro exam. Moribund. Microbiology Past 72 Hours 03/03/20 13:40 Mucosa - Nasopharyngeal Respiratory Panel (PCR) - Final Laboratory Results 03/02/20 16:45: POC Glucose 389 H 03/02/20 18:06: Sodium 152 H, Potassium 3.8, Chloride 124 H, Carbon Dioxide 20.0 L, Anion Gap 8, BUN 67 H, Creatinine 1.85 H, Estim Creat Clear Calc 39.57, Est GFR (MDRD) Af Amer 47 L, Est GFR (MDRD) Non-Af 39 L, BUN/Creatinine Ratio 36.2 H, Glucose 502 H*, Calcium 8.4 L 03/02/20 23:52: POC Glucose 418 H 03/03/20 05:39: POC Glucose > 500 H* 03/03/20 05:56: WBC 3.2 L, RBC 4.95, Hgb 15.1, Hct 47.0, MCV 94.9 H, MCH 30.5, MCHC 32.1, RDW Std Deviation 51.6 H, RDW Coeff of Indra 14.6, Plt Count 131 L, MPV 9.9, Immature Gran % (Auto) 0.900, Neut % (Auto) 63.8, Lymph % (Auto) 25.4, Pike % (Auto) 9.0, Eos % (Auto) 0.3, Baso % (Auto) 0.6, Absolute Neuts (auto) 2.1, Absolute Lymphs (auto) 0.82 L, Nucleated RBC % 0 03/03/20 05:56: Sodium 151 H, Potassium 4.0, Chloride 121 H, Carbon Dioxide 21.0, Anion Gap 9, BUN 78 H, Creatinine 1.96 H, Estim Creat Clear Calc 37.35, Est GFR (MDRD) Af Amer 44 L, Est GFR (MDRD) Non-Af 36 L, BUN/Creatinine Ratio 39.8 H, Glucose 549 H*, Calcium 8.0 L, Total Bilirubin 1.20 H, AST 33, ALT 21, Alkaline Phosphatase 68, Total Protein 6.3 L, Albumin 2.3 L, Globulin 4.0, Albumin/Globulin Ratio 0.6 L 03/03/20 05:56: B-Natriuretic Peptide Pending 03/03/20 11:26: POC Glucose 333 H 03/03/20 13:47: Specimen Type ART, Sample Site R BRACHIAL, pH 7.35, Bicarbonate Actual 24.7, POC Total CO2 26, Base Excess -1, O2 Saturation 87 L, ABG pCO2 44.2, ABG pO2 56 L, O2 Delivery Device Nasal Can, Liter Flow 3.0, Blood Gas Notified Whom ICU MD, Blood Gas Notified Time 1347 03/03/20 14:31: POC Glucose 316 H Current Medications Acetaminophen (Tylenol) 650 mg PO Q6H PRN PRN PRN Reason: FEVER Last Admin: 03/01/20 11:49 Dose: 650 mg Documented by: Acetaminophen (Tylenol) 650 mg RECTAL Q6H PRN PRN PRN Reason: Pain or Fever Last Admin: 03/03/20 12:50 Dose: 650 mg Documented by: Al Hydroxide/Mg Hydroxide (Mylanta Ii) 30 ml PO Q6H PRN PRN PRN Reason: Gastric Burning Atorvastatin Calcium (Lipitor) 40 mg PO QHS [facility] Last Admin: 03/02/20 23:48 Dose: 40 mg Documented by: Dextrose (D50w Syringe) 0 gm IV X1 PRN; Protocol PRN Reason: Hypoglycemia Donepezil HCl (Aricept) 10 mg PO DAILY [facility] Last Admin: 03/03/20 10:16 Dose: Not Given Documented by: Enoxaparin Sodium (Lovenox) 30 mg SC DAILY [facility] Last Admin: 03/03/20 10:56 Dose: 30 mg Documented by: Glucagon () 1 mg IM .X1 PRN PRN Reason: Hypoglycemia Glycopyrrolate (Glycopyrrolate 1 Mg/5 Ml) 0.2 mg IV Q4H PRN PRN PRN Reason: secretions Hydralazine HCl (Apresoline Iv) 5 mg IV Q6H PRN PRN PRN Reason: SBP>160 Pantoprazole Sodium 40 mg/ (Sodium Chloride) 110 mls @ 330 mls/hr IV Q24 [facility] Last Infusion: 03/03/20 11:00 Dose: Infused Documented by: Piperacillin Sod/Tazobactam (Sod 3.375 gm/ Sodium Chloride) 50 mls @ 12.5 mls/hr IV Q8 [facility] Last Admin: 03/03/20 14:12 Dose: 12.5 mls/hr Documented by: Insulin Human Lispro (Humalog Kwikpen (Bkc)) 0 unit SC Q6 [facility]; Protocol Last Admin: 03/03/20 11:28 Dose: 12 units Documented by: Latanoprost (Xalatan Opthalmic) 1 drop EACH EYE QHS [facility] Last Admin: 03/02/20 23:49 Dose: 1 drop Documented by: Levothyroxine Sodium (Synthroid) 125 mcg PO DAILY@0600 [facility] Last Admin: 03/03/20 05:40 Dose: 125 mcg Documented by: Lorazepam (Ativan) 1 mg IV Q4H PRN PRN PRN Reason: tachypnea Melatonin (Melatonin) 3 mg PO QHS PRN PRN Reason: SLEEP Metoprolol Tartrate (Lopressor (Beta Mauricio)) 50 mg PO BID [facility] Last Admin: 03/03/20 10:16 Dose: Not Given Documented by: Metoprolol Tartrate (Lopressor (Beta Mauricio)) 5 mg IV Q6H PRN PRN PRN Reason: BLOOD PRESSURE Last Admin: 03/01/20 11:14 Dose: 5 mg Documented by: Morphine Sulfate (Roxanol (Ir Oral Solution)) 5 mg SL Q2H PRN PRN PRN Reason: pulm edema/hospice Morphine Sulfate () 5 mg IV Q1H PRN PRN PRN Reason: Pain Score 1-10/10 Ondansetron HCl (Zofran) 4 mg IV Q8H PRN PRN PRN Reason: NAUSEA/VOMITING Sodium Chloride () 10 - 40 ml IV UD PRN PRN Reason: SALINE FLUSH Last Admin: 03/03/20 10:56 Dose: 30 ml Documented by: Timolol Maleate (Timoptic) 1 drop EACH EYE DAILY [facility] Last Admin: 03/03/20 10:56 Dose: 1 drop Documented by: Trazodone HCl (Desyrel) 50 mg PO QHS [facility] STRO[facility] Vital Signs/Narrative: Vital Signs Temp Pulse Resp BP Pulse Ox 03/03/20 15:59 103 F H 64 8 L 72 03/03/20 15:45 103.2 F H 128 H 28 H 73/43 L 78 03/03/20 14:00 102.6 F H 125 H 32 H 97/46 L 89 03/03/20 13:45 86 03/03/20 13:15 101.3 F H 116 H 28 H 107/64 89 Assessment/Plan This patient was seen in conjunction with Juanjo ROJAS. I have independently interviewed and examined the patient and reviewed pertinent history, examination findings, laboratory and plan of management. I have reviewed the note and agree with the documented findings with the few additional points. In brief, patient is 69-year-old gentleman with no prior history of cancer is admitted with small bowel obstruction secondary to metastatic deposits. 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 Surgical biopsies are still pending. Repeat chest x-ray done on 03/03/2020 shows progression of linear density on lung bases and on CT abdomen shows air bronchograms on the right lung base. Empirically IV Zosyn was started in the morning. Blood cultures x2 pending. Urine culture pending. UA is negative. Repeat respiratory panel negative. Discussed with surgeon, rolls baker/college dean and polysomnography technologist. Hypernatremia: IV fluids changed to D5W. Repeat serum sodium was high. Director [employer] was consulted. FENa suggestive of prerenal but patient was found to have critical left lung base therefore IV fluid discontinued. Discussed with polysomnography technologist and 1 dose of Lasix given as urine output was about 200 to 300 mL, dark yellow color in the morning. BNP ordered. Result pending. Acute kidney injury, most likely secondary to prerenal/abdominal surgery: Patient has Vale catheter. Further worsening of kidney function, BUN/creatinine 78/1.96. Severe Sepsis secondary to possible aspiration pneumonia or intra-abdominal infection: As mentioned above, patient has distended abdomen with atelectasis and right lung base consolidation and CT abdomen there is possibility of aspiration pneumonia. Blood pressure is steadily dropped from [birth year]/23[birth year]1968 - 107/64. On IV Zosyn. Usual IV fluid bolus of severe sepsis protocol not followed as patient already has fluid overload and distended abdomen with third compartment spacing Diabetes mellitus type II: Glucose in 505 and 549: Most probably secondary to D5W. Started on Lantus 10 units twice daily. Other comorbidities: hypertension, hypothyroidism and dementia: Multiple comorbidities complicates the present care and expect difficult and delay recovery End-of-life goal, advanced directive/living will: Patient does not have living will or DURABLE POWER OF DOUBLE ENDING MACHINE OPERATOR for healthcare. After discussion of procedures involved with full code, DNR CC arrest and DNR CC, the patient opted for DNR-CC Arrest Patient does not want artificial life support including intubation, tube feed, ventilator and/chest compression, central venous catheter, vasopressor and DC shock if needed This was further discussed with the patient's and patient want DNR CC with hospice care. Hospice consult was done and patient was put on morphine and glycopyrrolate and other hospice order as recommended by palliative doctor.CODE STATUS changed to DNR CC Total time of the visit including total time spent in counseling or coordination of care, (more than 50% of the total time, spent in obtaining medical information from nurses and other ancillary care providers), discussion with surgeon, college dean and polysomnography technologist, review of labs and imaging is 35 minutes Inpatient E&M: [id number] [place] [id number]
[2020-03-03] MEDS: Acetaminophen 650 MG Suppository RECTAL (12:50)
--- NOTE | 2020-03-03 13:01 | PCM.PN.PUL ---
Subjective: The patient was seen and examined at the bedside this morning. Events from the last 24 hours have been reviewed. The patient did develop a fever this morning. He has also become increasingly tachycardic and is more lethargic. He has been having difficulty clearing secretions. Oxygen saturations are currently stable on 2 L/min via nasal cannula. Objective: The patient's most recent lab work, culture data and imaging studies have all been personally reviewed. Blood cultures are pending. - Physical Exam Vitals/I&O's: Vital Signs Temp Pulse Resp BP Pulse Ox 101.3 F H 119 H 24 H 126/66 H 94 03/03/20 12:05 03/03/20 12:05 03/03/20 12:05 03/03/20 12:05 03/03/20 12:05 Oxygen Flow Rate (L/min) 2 Oxygen Delivery Method Nasal Cannula Weight: 201 lb 15.095 oz Body Mass Index (BMI) 29.8 Finger Stick Blood Glucose 302 Intake and Output for Last 24 Hours 03/01/20 03/02/20 03/03/20 23:59 23:59 23:59 Intake Total 2234.17 / 2234.17 3458.33 / 3458.33 1180.0 / 1180.0 Output Total 1800 / 1800 1225 / 1225 680 / 680 Balance 434.17 / 434.17 2233.33 / 2233.33 500.0 / 500.0 General: Lethargic HEENT: Atraumatic, Normocephalic Oral: Dry Mucosa Neck: Supple, No Nodes, Trachea Midline Lungs: Diminished, Rhonchi, Tachypneic, - - Sonorous respirations Cardiovascular: Normal S1, Normal S2, No murmurs, Tachycardic Abdomen: Bowel Sounds Present, Soft, Non Tender, Obese Extremities: No clubbing, No cyanosis Skin: No breakdown Musculoskeletal: No Muscle Wasting Lymphatic: No Cervical, Supraclavicular, or Inguinal Adenopathy Neurological: - - Will no longer open eyes and follow simple commands. Labs (Last 48 Hours) 02/28/20 02/28/20 03/01/20 06:05 06:05 14:10 WBC RBC Hgb Hct MCV MCH MCHC RDW Std Deviation RDW Coeff of Indra Plt Count MPV Immature Gran % (Auto) Neut % (Auto) Lymph % (Auto) [place] % (Auto) Eos % (Auto) Baso % (Auto) Absolute Neuts (auto) Absolute Lymphs (auto) Nucleated RBC % Sodium 155 H Potassium 3.7 Chloride 126 H Carbon Dioxide 20.0 L Anion Gap 9 BUN 46 H Creatinine 1.31 H Estim Creat Clear Calc 55.88 Est GFR (MDRD) Af Amer 69 Est GFR (MDRD) Non-Af 57 L BUN/Creatinine Ratio 35.1 H Glucose 298 H Calcium 8.9 Total Bilirubin AST ALT Alkaline Phosphatase Total Protein Albumin Globulin Albumin/Globulin Ratio Carcinoembryonic Ag 0.9 CA 19-9 Serial Monitor 1240 Urine Color Urine Clarity Urine pH Ur Specific [place] Urine Protein Urine Glucose (UA) Urine Ketones Urine Occult Blood Urine Nitrite Urine Bilirubin Urine Urobilinogen Ur Leukocyte Esterase Urine RBC Urine WBC Ur Squamous Epith Cells Urine Bacteria Hyaline Casts Urine Mucus Ur Random Sodium Urine Creatinine POC Glucose 03/01/20 03/01/20 03/01/20 16:55 23:06 23:10 WBC RBC Hgb Hct MCV MCH MCHC RDW Std Deviation RDW Coeff of Indra Plt Count MPV Immature Gran % (Auto) Neut % (Auto) Lymph % (Auto) [place] % (Auto) Eos % (Auto) Baso % (Auto) Absolute Neuts (auto) Absolute Lymphs (auto) Nucleated RBC % Sodium 154 H Potassium Chloride Carbon Dioxide Anion Gap BUN Creatinine Estim Creat Clear Calc Est GFR (MDRD) Af Amer Est GFR (MDRD) Non-Af BUN/Creatinine Ratio Glucose Calcium Total Bilirubin AST ALT Alkaline Phosphatase Total Protein Albumin Globulin Albumin/Globulin Ratio Carcinoembryonic Ag CA 19-9 Serial Monitor Urine Color Urine Clarity Urine pH Ur Specific [place] Urine Protein Urine Glucose (UA) Urine Ketones Urine Occult Blood Urine Nitrite Urine Bilirubin Urine Urobilinogen Ur Leukocyte Esterase Urine RBC Urine WBC Ur Squamous Epith Cells Urine Bacteria Hyaline Casts Urine Mucus Ur Random Sodium Urine Creatinine POC Glucose 317 H 296 H 03/02/20 03/02/20 03/02/20 05:20 05:30 05:30 WBC 4.0 L RBC 5.28 Hgb 15.8 Hct 48.2 MCV 91.3 MCH 29.9 MCHC 32.8 RDW Std Deviation 49.1 H RDW Coeff of Idnra 14.6 Plt Count 161 MPV 9.6 Immature Gran % (Auto) 0.500 Neut % (Auto) 67.7 Lymph % (Auto) 21.6 [place] % (Auto) 10.0 Eos % (Auto) 0.0 Baso % (Auto) 0.2 Absolute Neuts (auto) 2.7 Absolute Lymphs (auto) 0.87 Nucleated RBC % 0 Sodium 155 H Potassium 3.7 Chloride 124 H Carbon Dioxide 21.0 Anion Gap 10 BUN 53 H Creatinine 1.30 Estim Creat Clear Calc 56.31 Est GFR (MDRD) Af Amer 70 Est GFR (MDRD) Non-Af 58 L BUN/Creatinine Ratio 40.8 H Glucose 366 H Calcium 8.4 L Total Bilirubin AST ALT Alkaline Phosphatase Total Protein Albumin Globulin Albumin/Globulin Ratio Carcinoembryonic Ag CA 19-9 Serial Monitor Urine Color Urine Clarity Urine pH Ur Specific [place] Urine Protein Urine Glucose (UA) Urine Ketones Urine Occult Blood Urine Nitrite Urine Bilirubin Urine Urobilinogen Ur Leukocyte Esterase Urine RBC Urine WBC Ur Squamous Epith Cells Urine Bacteria Hyaline Casts Urine Mucus Ur Random Sodium Urine Creatinine POC Glucose 344 H 03/02/20 03/02/20 03/02/20 11:19 14:55 14:55 WBC RBC Hgb Hct MCV MCH MCHC RDW Std Deviation RDW Coeff of Indra Plt Count MPV Immature Gran % (Auto) Neut % (Auto) Lymph % (Auto) [place] % (Auto) Eos % (Auto) Baso % (Auto) Absolute Neuts (auto) Absolute Lymphs (auto) Nucleated RBC % Sodium Potassium Chloride Carbon Dioxide Anion Gap BUN Creatinine Estim Creat Clear Calc Est GFR (MDRD) Af Amer Est GFR (MDRD) Non-Af BUN/Creatinine Ratio Glucose Calcium Total Bilirubin AST ALT Alkaline Phosphatase Total Protein Albumin Globulin Albumin/Globulin Ratio Carcinoembryonic Ag CA 19-9 Serial Monitor Urine Color Yellow Urine Clarity Clear Urine pH 6.0 Ur Specific [place] 1.010 Urine Protein 30 H Urine Glucose (UA) 1000 H Urine Ketones 15 H Urine Occult Blood 25 H Urine Nitrite Negative Urine Bilirubin 3 H Urine Urobilinogen 1 H Ur Leukocyte Esterase 25 H Urine RBC 0-5 SEEN Urine WBC 0-5 SEEN Ur Squamous Epith Cells 0 SEEN Urine Bacteria 0 SEEN Hyaline Casts 5-10 SEEN Urine Mucus 0 SEEN Ur Random Sodium Urine Creatinine 225.00 POC Glucose 356 H 03/02/20 03/02/20 03/02/20 14:55 16:45 18:06 WBC RBC Hgb Hct MCV MCH MCHC RDW Std Deviation RDW Coeff of Indra Plt Count MPV Immature Gran % (Auto) Neut % (Auto) Lymph % (Auto) [place] % (Auto) Eos % (Auto) Baso % (Auto) Absolute Neuts (auto) Absolute Lymphs (auto) Nucleated RBC % Sodium 152 H Potassium 3.8 Chloride 124 H Carbon Dioxide 20.0 L Anion Gap 8 BUN 67 H Creatinine 1.85 H Estim Creat Clear Calc 39.57 Est GFR (MDRD) Af Amer 47 L Est GFR (MDRD) Non-Af 39 L BUN/Creatinine Ratio 36.2 H Glucose 502 H* Calcium 8.4 L Total Bilirubin AST ALT Alkaline Phosphatase Total Protein Albumin Globulin Albumin/Globulin Ratio Carcinoembryonic Ag CA 19-9 Serial Monitor Urine Color Urine Clarity Urine pH Ur Specific [place] Urine Protein Urine Glucose (UA) Urine Ketones Urine Occult Blood Urine Nitrite Urine Bilirubin Urine Urobilinogen Ur Leukocyte Esterase Urine RBC Urine WBC Ur Squamous Epith Cells Urine Bacteria Hyaline Casts Urine Mucus Ur Random Sodium 11 Urine Creatinine POC Glucose 389 H 03/02/20 03/03/20 03/03/20 23:52 05:39 05:56 WBC 3.2 L RBC 4.95 Hgb 15.1 Hct 47.0 MCV 94.9 H MCH 30.5 MCHC 32.1 RDW Std Deviation 51.6 H RDW Coeff of Indra 14.6 Plt Count 131 L MPV 9.9 Immature Gran % (Auto) 0.900 Neut % (Auto) 63.8 Lymph % (Auto) 25.4 [place] % (Auto) 9.0 Eos % (Auto) 0.3 Baso % (Auto) 0.6 Absolute Neuts (auto) 2.1 Absolute Lymphs (auto) 0.82 L Nucleated RBC % 0 Sodium Potassium Chloride Carbon Dioxide Anion Gap BUN Creatinine Estim Creat Clear Calc Est GFR (MDRD) Af Amer Est GFR (MDRD) Non-Af BUN/Creatinine Ratio Glucose Calcium Total Bilirubin AST ALT Alkaline Phosphatase Total Protein Albumin Globulin Albumin/Globulin Ratio Carcinoembryonic Ag CA 19-9 Serial Monitor Urine Color Urine Clarity Urine pH Ur Specific [place] Urine Protein Urine Glucose (UA) Urine Ketones Urine Occult Blood Urine Nitrite Urine Bilirubin Urine Urobilinogen Ur Leukocyte Esterase Urine RBC Urine WBC Ur Squamous Epith Cells Urine Bacteria Hyaline Casts Urine Mucus Ur Random Sodium Urine Creatinine POC Glucose 418 H > 500 H* 03/03/20 03/03/20 05:56 11:26 WBC RBC Hgb Hct MCV MCH MCHC RDW Std Deviation RDW Coeff of Indra Plt Count MPV Immature Gran % (Auto) Neut % (Auto) Lymph % (Auto) [place] % (Auto) Eos % (Auto) Baso % (Auto) Absolute Neuts (auto) Absolute Lymphs (auto) Nucleated RBC % Sodium 151 H Potassium 4.0 Chloride 121 H Carbon Dioxide 21.0 Anion Gap 9 BUN 78 H Creatinine 1.96 H Estim Creat Clear Calc 37.35 Est GFR (MDRD) Af Amer 44 L Est GFR (MDRD) Non-Af 36 L BUN/Creatinine Ratio 39.8 H Glucose 549 H* Calcium 8.0 L Total Bilirubin 1.20 H AST 33 ALT 21 Alkaline Phosphatase 68 Total Protein 6.3 L Albumin 2.3 L Globulin 4.0 Albumin/Globulin Ratio 0.6 L Carcinoembryonic Ag CA 19-9 Serial Monitor Urine Color Urine Clarity Urine pH Ur Specific [place] Urine Protein Urine Glucose (UA) Urine Ketones Urine Occult Blood Urine Nitrite Urine Bilirubin Urine Urobilinogen Ur Leukocyte Esterase Urine RBC Urine WBC Ur Squamous Epith Cells Urine Bacteria Hyaline Casts Urine Mucus Ur Random Sodium Urine Creatinine POC Glucose 333 H Clinical Impression(s) from Imaging Studies Abdomen/Pelvis CT 02/26/20 12:26 IMPRESSION: Diffuse fatty infiltration of the liver. Inhomogeneous appearance of the left lobe of liver adjacent to the falciform ligament. This may represent dilated intrahepatic biliary ducts. Atrophy of the pancreas. Several fluid filled nondistended small bowel loops in the central portion of the abdomen. Electronically Signed: Maxx Bradford, at 15:01 EDT , Service support , Chest X-Ray 02/26/20 14:34 IMPRESSION: Borderline cardiomegaly. Electronically Signed: Maxx Bradford, at 15:01 EDT , Service support , KUB X-Ray 02/27/20 07:01 IMPRESSION: Dilated small bowel loops with a small amount of fecal material in the colon. Follow-up is recommended. Electronically Signed: Maxx Sanchez, at 8:25 EDT , Service support , Small Bowel X-Ray 02/27/20 08:20 IMPRESSION: Findings in keeping with a small bowel obstruction most likely in the distal ileum. Electronically Signed: Maxx Bradford, at 13:15 EDT , Service support , Chest X-Ray 03/01/20 09:55 IMPRESSION: Minimal degree of increased markings at the lung bases slightly more prominent on the right side suggestive of bibasilar atelectasis. Electronically Signed: Maxx Bradford, at 10:15 EDT , Service support , KUB X-Ray 03/02/20 05:55 IMPRESSION: Increased air distention of small bowel likely high-grade ileus or partial obstruction, there is contrast within the decompressed colon, patient is reportedly status post small bowel series 02/27/2020. Electronically Signed: Billie Griffith MD at 5:22 EDT , Service support , KUB X-Ray 03/03/20 05:55 IMPRESSION: Stable appearance of the dilated small bowel loops with a decompressed colon containing oral contrast. Electronically Signed: Maxx Bradford, at 8:10 EDT , Service support , Abdomen/Pelvis CT 03/03/20 08:52 IMPRESSION: Increased markings at the lung bases suggestive of atelectasis versus postoperative infiltrates. Small amount of free intraperitoneal air most likely secondary to recent intra-abdominal surgery. Small bowel dilatation down to the terminal ileum where there is evidence of circumferential wall thickening of the terminal ileum with increased markings in the surrounding peritoneal fat. The colon is decompressed with contrast within it. Postoperative changes involving the anterior abdominal wall. The bladder is decompressed with diffuse bladder wall thickening. Electronically Signed: Maxx Sanchez, at 9:40 EDT , Service support , Chest X-Ray 03/03/20 09:10 IMPRESSION: Mild progression of the linear densities at the lung bases slightly worse on the right side suggestive of bibasilar atelectasis. Electronically Signed: Maxx Sanchez, at 9:42 EDT , Service support , Brain CT 03/03/20 09:58 IMPRESSION: Chronic involutional changes of the brain. 4.7 mm rounded density in the right side of the t[place] of [place]. This may represent either ectasia or possible aneurysm. Correlation with CTA of the brain is recommended when the patient''s condition permits. Electronically Signed: Maxx Sanchez, at 10:33 EDT , Service support , Current Medications Acetaminophen (Tylenol) 650 mg PO Q6H PRN PRN PRN Reason: FEVER Last Admin: 03/01/20 11:49 Dose: 650 mg Documented by: Acetaminophen (Tylenol) 650 mg RECTAL Q6H PRN PRN PRN Reason: Pain or Fever Last Admin: 03/03/20 12:50 Dose: 650 mg Documented by: Al Hydroxide/Mg Hydroxide (Mylanta Ii) 30 ml PO Q6H PRN PRN PRN Reason: Gastric Burning Atorvastatin Calcium (Lipitor) 40 mg PO QHS [facility] Last Admin: 03/02/20 23:48 Dose: 40 mg Documented by: Dextrose (D50w Syringe) 0 gm IV X1 PRN; Protocol PRN Reason: Hypoglycemia Donepezil HCl (Aricept) 10 mg PO DAILY [facility] Last Admin: 03/03/20 10:16 Dose: Not Given Documented by: Enoxaparin Sodium (Lovenox) 30 mg SC DAILY [facility] Last Admin: 03/03/20 10:56 Dose: 30 mg Documented by: Glucagon () 1 mg IM .X1 PRN PRN Reason: Hypoglycemia Hydralazine HCl (Apresoline Iv) 5 mg IV Q6H PRN PRN PRN Reason: SBP>160 Pantoprazole Sodium 40 mg/ (Sodium Chloride) 110 mls @ 330 mls/hr IV Q24 [facility] Last Infusion: 03/03/20 11:00 Dose: Infused Documented by: Piperacillin Sod/Tazobactam (Sod 3.375 gm/ Sodium Chloride) 50 mls @ 12.5 mls/hr IV Q8 [facility] Insulin Glargine (Lantus ([facility])) 10 units SC BID [facility] Last Admin: 03/03/20 11:27 Dose: 10 u Documented by: Insulin Human Lispro (Humalog Kwikpen ([facility])) 0 unit SC Q6 [facility]; Protocol Last Admin: 03/03/20 11:28 Dose: 12 units Documented by: Latanoprost (Xalatan Opthalmic) 1 drop EACH EYE QHS [facility] Last Admin: 03/02/20 23:49 Dose: 1 drop Documented by: Levothyroxine Sodium (Synthroid) 125 mcg PO DAILY@0600 [facility] Last Admin: 03/03/20 05:40 Dose: 125 mcg Documented by: Melatonin (Melatonin) 3 mg PO QHS PRN PRN Reason: SLEEP Metoprolol Tartrate (Lopressor (Beta Mauricio)) 50 mg PO BID [facility] Last Admin: 03/03/20 10:16 Dose: Not Given Documented by: Metoprolol Tartrate (Lopressor (Beta Mauricio)) 5 mg IV Q6H PRN PRN PRN Reason: BLOOD PRESSURE Last Admin: 03/01/20 11:14 Dose: 5 mg Documented by: Morphine Sulfate () 2 - 4 mg IV Q2H PRN PRN PRN Reason: Pain Score 1-10/10 Last Admin: 03/02/20 15:40 Dose: 2 mg Documented by: Morphine Sulfate () 2 - 4 mg IV Q2H PRN PRN PRN Reason: Pain Score 1-10/10 Ondansetron HCl (Zofran) 4 mg IV Q8H PRN PRN PRN Reason: NAUSEA/VOMITING Sodium Chloride () 10 - 40 ml IV UD PRN PRN Reason: SALINE FLUSH Last Admin: 03/03/20 10:56 Dose: 30 ml Documented by: Timolol Maleate (Timoptic) 1 drop EACH EYE DAILY [facility] Last Admin: 03/03/20 10:56 Dose: 1 drop Documented by: Trazodone HCl (Desyrel) 50 mg PO QHS [facility] Medical Necessity - Tobacco Use Smoking Status: Former smoker Tobacco Use: Non-smoker Assessment/Plan All Active Problems (Last Reviewed 03/08/18 @ 10:[address] Bob Paulson MD) Ileus (Acute) Small bowel obstruction (Acute) Rhinitis (Acute) Hyperkalemia (Acute) Elevated serum creatinine (Acute) Abdominal pain (Acute) Chest pain, precordial (Acute) Family history of coronary artery disease (Acute) RECOMMENDATIONS: 1. Wean supplemental oxygen to maintain saturations at or above 90%. 2. Obtain arterial blood gas and check TSH level. 3. Agree with empiric antimicrobials for now. 4. Consider hospice care evaluation. IMPRESSIONS: 1. Acute hypoxemic respiratory insufficiency The patient's respiratory insufficiency is likely secondary to atelectasis, which is a consequence of the patient's intra-abdominal process, coupled with impaired respiratory mechanics due to pain. In addition, the patient has gone on to develop a fever this morning and appears to be having difficulty managing secretions. This would raise concern for the possibility of aspiration pneumonia. Agree with empiric antimicrobials for now and maintaining n.p.o. status. Given the patient's increasing lethargy, I would obtain an arterial blood gas. 2. Sepsis with concerns for possible aspiration pneumonia Agree with empiric antimicrobials for now. The patient remains hemodynamically stable. Agree with n.p.o. status. 3. Encephalopathy Likely toxic/metabolic in etiology. CT head was unremarkable. If there is concern for possible CVA, recommend obtaining MRI. In the interim, will obtain arterial blood gas to evaluate for any CO2 retention. TSH will also be checked. This note was generated with [employer] software. It may contain incorrect words, spelling, and punctuation that were not noted in checking the note before signing. Inpatient E&M: 04075 Subs Hosp L2
--- NOTE | 2020-03-03 14:02 | CPS ---
PT PLACED ON 50% VENTI MASK SATURATION 92% ON 50%. DR OTT AND PT NURSE AWARE OF O2 CHANGE
--- NOTE | 2020-03-03 14:10 | PCM.PN.REN ---
Patient Problems: Active and Suspected Problems (Last Reviewed 03/08/18 @ 10:[address] Bob Paulson MD) Small bowel obstruction (Acute) Rhinitis (Acute) Hyperkalemia (Acute) Elevated serum creatinine (Acute) Abdominal pain (Acute) Subjective: lethargic - Physical Exam Vitals/I&O's: Vital Signs Temp Pulse Resp BP Pulse Ox 101.3 F H 116 H 28 H 107/64 86 03/03/20 13:15 03/03/20 13:15 03/03/20 13:15 03/03/20 13:15 03/03/20 13:45 Oxygen Flow Rate (L/min) 3 Oxygen Delivery Method Nasal Cannula Weight: 91.6 kg Body Mass Index (BMI) 29.8 Finger Stick Blood Glucose 302 Intake and Output for Last 24 Hours 03/01/20 03/02/20 03/03/20 23:59 23:59 23:59 Intake Total 2234.17 / 2234.17 3458.33 / 3458.33 1180.0 / 1180.0 Output Total 1800 / 1800 1225 / 1225 680 / 680 Balance 434.17 / 434.17 2233.33 / 2233.33 500.0 / 500.0 HEENT: Atraumatic, Normocephalic Neck: Supple Lungs: Rhonchi Cardiovascular: Regular rate, Regular Rhythm Abdomen: Bowel Sounds Present, Soft Extremities: No clubbing Laboratory Results 03/02/20 14:55: Urine Creatinine 225.00 03/02/20 14:55: Urine Color Yellow, Urine Clarity Clear, Urine pH 6.0, Ur Specific [place] 1.010, Urine Protein 30 H, Urine Glucose (UA) 1000 H, Urine Ketones 15 H, Urine Occult Blood 25 H, Urine Nitrite Negative, Urine Bilirubin 3 H, Urine Urobilinogen 1 H, Ur Leukocyte Esterase 25 H, Urine RBC 0-5 SEEN, Urine WBC 0-5 SEEN, Ur Squamous Epith Cells 0 SEEN, Urine Bacteria 0 SEEN, Hyaline Casts 5-10 SEEN, Urine Mucus 0 SEEN 03/02/20 14:55: Ur Random Sodium 11 03/02/20 16:45: POC Glucose 389 H 03/02/20 18:06: Sodium 152 H, Potassium 3.8, Chloride 124 H, Carbon Dioxide 20.0 L, Anion Gap 8, BUN 67 H, Creatinine 1.85 H, Estim Creat Clear Calc 39.57, Est GFR (MDRD) Af Amer 47 L, Est GFR (MDRD) Non-Af 39 L, BUN/Creatinine Ratio 36.2 H, Glucose 502 H*, Calcium 8.4 L 03/02/20 23:52: POC Glucose 418 H 03/03/20 05:39: POC Glucose > 500 H* 03/03/20 05:56: WBC 3.2 L, RBC 4.95, Hgb 15.1, Hct 47.0, MCV 94.9 H, MCH 30.5, MCHC 32.1, RDW Std Deviation 51.6 H, RDW Coeff of Indra 14.6, Plt Count 131 L, MPV 9.9, Immature Gran % (Auto) 0.900, Neut % (Auto) 63.8, Lymph % (Auto) 25.4, [place] % (Auto) 9.0, Eos % (Auto) 0.3, Baso % (Auto) 0.6, Absolute Neuts (auto) 2.1, Absolute Lymphs (auto) 0.82 L, Nucleated RBC % 0 03/03/20 05:56: Sodium 151 H, Potassium 4.0, Chloride 121 H, Carbon Dioxide 21.0, Anion Gap 9, BUN 78 H, Creatinine 1.96 H, Estim Creat Clear Calc 37.35, Est GFR (MDRD) Af Amer 44 L, Est GFR (MDRD) Non-Af 36 L, BUN/Creatinine Ratio 39.8 H, Glucose 549 H*, Calcium 8.0 L, Total Bilirubin 1.20 H, AST 33, ALT 21, Alkaline Phosphatase 68, Total Protein 6.3 L, Albumin 2.3 L, Globulin 4.0, Albumin/Globulin Ratio 0.6 L 03/03/20 11:26: POC Glucose 333 H 03/03/20 13:47: pH Pending, Bicarbonate Actual Pending, POC Total CO2 Pending, Base Excess Pending, O2 Saturation Pending, ABG pCO2 Pending, ABG pO2 Pending Current Medications Acetaminophen (Tylenol) 650 mg PO Q6H PRN PRN PRN Reason: FEVER Last Admin: 03/01/20 11:49 Dose: 650 mg Documented by: Acetaminophen (Tylenol) 650 mg RECTAL Q6H PRN PRN PRN Reason: Pain or Fever Last Admin: 03/03/20 12:50 Dose: 650 mg Documented by: Al Hydroxide/Mg Hydroxide (Mylanta Ii) 30 ml PO Q6H PRN PRN PRN Reason: Gastric Burning Atorvastatin Calcium (Lipitor) 40 mg PO QHS [facility] Last Admin: 03/02/20 23:48 Dose: 40 mg Documented by: Dextrose (D50w Syringe) 0 gm IV X1 PRN; Protocol PRN Reason: Hypoglycemia Donepezil HCl (Aricept) 10 mg PO DAILY [facility] Last Admin: 03/03/20 10:16 Dose: Not Given Documented by: Enoxaparin Sodium (Lovenox) 30 mg SC DAILY [facility] Last Admin: 03/03/20 10:56 Dose: 30 mg Documented by: Glucagon () 1 mg IM .X1 PRN PRN Reason: Hypoglycemia Hydralazine HCl (Apresoline Iv) 5 mg IV Q6H PRN PRN PRN Reason: SBP>160 Pantoprazole Sodium 40 mg/ (Sodium Chloride) 110 mls @ 330 mls/hr IV Q24 [facility] Last Infusion: 03/03/20 11:00 Dose: Infused Documented by: Piperacillin Sod/Tazobactam (Sod 3.375 gm/ Sodium Chloride) 50 mls @ 12.5 mls/hr IV Q8 [facility] Insulin Glargine (Lantus ([facility])) 10 units SC BID [facility] Last Admin: 03/03/20 11:27 Dose: 10 u Documented by: Insulin Human Lispro (Humalog Kwikpen ([facility])) 0 unit SC Q6 [facility]; Protocol Last Admin: 03/03/20 11:28 Dose: 12 units Documented by: Latanoprost (Xalatan Opthalmic) 1 drop EACH EYE QHS [facility] Last Admin: 03/02/20 23:49 Dose: 1 drop Documented by: Levothyroxine Sodium (Synthroid) 125 mcg PO DAILY@0600 [facility] Last Admin: 03/03/20 05:40 Dose: 125 mcg Documented by: Melatonin (Melatonin) 3 mg PO QHS PRN PRN Reason: SLEEP Metoprolol Tartrate (Lopressor (Beta Mauricio)) 50 mg PO BID [facility] Last Admin: 03/03/20 10:16 Dose: Not Given Documented by: Metoprolol Tartrate (Lopressor (Beta Mauricio)) 5 mg IV Q6H PRN PRN PRN Reason: BLOOD PRESSURE Last Admin: 03/01/20 11:14 Dose: 5 mg Documented by: Morphine Sulfate () 2 - 4 mg IV Q2H PRN PRN PRN Reason: Pain Score 1-10/10 Last Admin: 03/02/20 15:40 Dose: 2 mg Documented by: Morphine Sulfate () 2 - 4 mg IV Q2H PRN PRN PRN Reason: Pain Score 1-10/10 Ondansetron HCl (Zofran) 4 mg IV Q8H PRN PRN PRN Reason: NAUSEA/VOMITING Sodium Chloride () 10 - 40 ml IV UD PRN PRN Reason: SALINE FLUSH Last Admin: 03/03/20 10:56 Dose: 30 ml Documented by: Timolol Maleate (Timoptic) 1 drop EACH EYE DAILY [facility] Last Admin: 03/03/20 10:56 Dose: 1 drop Documented by: Trazodone HCl (Desyrel) 50 mg PO QHS [facility] Medical Necessity - Tobacco Use Smoking Status: Former smoker Tobacco Use: Non-smoker Assessment/Plan All Active Problems (Last Reviewed 03/08/18 @ 10:[address] Bob Paulson MD) Ileus (Acute) Small bowel obstruction (Acute) Rhinitis (Acute) Hyperkalemia (Acute) Elevated serum creatinine (Acute) Abdominal pain (Acute) Chest pain, precordial (Acute) Family history of coronary artery disease (Acute) Hypernatremia would restart d5w when ok with primary team SNa 151 better pending BNP. 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 Vincent and CRYSTAL Degorot on zosyn now and pancx sent for likely sepsis
[2020-03-03 14:11] LABS: Base Excess -1 mmol/L (-2 to +2); Bicarbonate 24.7 mmol/L (22-26); PO2 56 mmHG (75-100); SO2 87 % (95-99); Total Carbon Dioxide 26 mmol/L; pCO2 44.2 mmHg (35-45); pH 7.35 (7.35-7.45)
--- NOTE | 2020-03-03 14:18 | NURSING ---
pt placed on 50% venti mask d/t sats 86% on 3l. temp rechecked and was 102.6. pt placed in isloation and resp panel pending. pt not opening eyes now to verbal loud simuli. moaned with turning but unable to arouse with verbal stim. dry pan charger aware and aware of increased temp and will call urine and blood gases sent.
[2020-03-03 14:33] LABS: Blood Gas Specimen Type ART; O2 Delivery Device Nasal Can; SITE R BRACHIAL
[2020-03-03 14:34] LABS: Time Given 1347
--- NOTE | 2020-03-03 14:42 | CASEMGMT ---
SANDRA called Hospice with new referral. CRYSTAL Geiger spoke with regarding Hospice and she was in agreement. SANDRA faxed information to Hospice. Await return call from Kellie at Hospice regarding plan. Eleni PARIKH MITERING MACHINE OPERATOR
--- NOTE | 2020-03-03 14:44 | NURSING ---
per charge poster pt's talked with drs' via phone and family wishes are for pt to go hospice.
[2020-03-03 14:45] LABS: Bedside Glucose 316 mg/dL (70-110)
--- NOTE | 2020-03-03 15:11 | CASEMGMT ---
SANDRA spoke with Kellie at Hospice. They would like to do a Dr to . Physician should call Dr Sood at [phone]. Patient's is meeting Hospice at their Hospice facility at 4p. They also need a hard copy of a DNR. Nurse should call report to [phone]. SANDRA updates rim fire charger operator and RN. Plan: [facility] Eleni PARIKH MSW
--- NOTE | 2020-03-03 15:34 | CASEMGMT ---
Per Juanjo ROJAS, patient may end up staying at [facility] as he may not be stable enough to move to the Hospice Unit. SANDRA called Kellie at Hospice and let her know this information. Patient's will still go to Hospice at 4p to sign papers. They will then direct her to the hospital if it is decide to keep patient at [facility]. SANDRA updated buyer. Eleni PARIKH MSW
--- NOTE | 2020-03-03 15:48 | NURSING ---
hospice updated on pt's decline and to come here now for end of life support. casting house laborer aware and will let main entrance staff know. sports apparel internship to send to hospital as is on her way to hospice building now
--- NOTE | 2020-03-03 16:05 | NURSING ---
1604 pt apneic with no pulse detectected. charge entry in and and daughter to bedside. no sign of life detected per 2nd rn.
--- NOTE | 2020-03-03 16:42 | NURSING ---
[facility] called and ok for body to be released to home.
--- NOTE | 2020-03-03 16:59 | NURSING ---
charge master coordinator in room and d/t many family members wanting to come up family encouraged to meet at home d/t strict visiting policies rt now. belongings list completed. took belongings bag with wallet tucked inside shoe. [facility] called to come pick up and delivery driver body
--- NOTE | 2020-03-03 17:30 | PCM.DEATH ---
Preliminary Cause of Septic shock Date of Admission: 02/26/20 Date of : 03/03/20 - Principle Diagnosis 1. Septic shock most probably secondary to intra-abdominal infection/small bowel obstruction status post laparotomy with ileocecectomy and anastomosis and aspiration pneumonia DNR CC hospice care. Severe sepsis and septic shock protocol was not followed as patient was fluid overload and patient and wanted DNR CC hospice care. Palliative care was consulted 2. Intra-abdominal infection/small bowel obstruction status post laparotomy with ileocecectomy and anastomosis and aspiration pneumonia 3. 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 Acute kidney injury most likely prerenal/ATN and hyponatremia. 5. Acute metabolic encephalopathy Diabetes mellitus type 2 hypertension, hypothyroidism and dementia Surgical biopsy of resected as specimen: Invasive adenocarcinoma on the portion of the ileum. Result of microsatellite instability study negative Hospital Course The patient is 69-year-old gentleman was admitted with small bowel obstruction secondary to metastatic deposits. Patient had laparotomy, ileocecectomy due to adenocarcinoma from small bowel with cecal mass, small bowel mesenteric mass, and liver mass on palpation; Intra-Op finding. Surgical biopsies showed invasive adenocarcinoma with negative microsatellite instability. Patient also had acute metabolic encephalopathy, hyponatremia and acute kidney injury from prerenal/ATN. [place] was suggestive of prerenal. This was co-managed with surgeon, bible teacher and hospital coder. Patient suddenly progressed to severe sepsis for which empirically IV Zosyn was started. Patient already had volume overload, and patient and his wanted DNR CC hospice care and palliative consult therefore severe sepsis/septic shock protocol was not followed. CODE STATUS DNR CC/hospice care. CT abdomen pelvis and chest x-ray were done showed multiple dilated small bowel loops along with air bronchograms in the right lung base and bibasilar atelectasis. CAT scan brain was done which did not show any acute change as patient had change in mental status but reported 4.7 after density possible ectasia or aneurysm in right side of [place] at origin of MCA. It was decided not to further progress because of patient was hemodynamically unstable and hospice care. On 03/03/2020 patient crashed very quickly with drop in blood pressure, decrease in mental status which later progressed to unresponsiveness, unconscious and asystole. Patient had high fever 103.2 103 which was managed symptomatically with Tylenol and antibiotics. Patient was informed at every stage and to palliative care consult. Palliative care was consulted. Hospice orders of morphine and glycopyrrolate was put in as per recommendation of palliative senior professional services consultant, Dr López. Patient and declared at 1604 on 03/03/2020.
--- NOTE | 2020-03-03 18:21 | NURSING ---
pt dc'd via stretcher and body released to [facility]
--- NOTE | 2020-03-04 14:14 | CASEMGMT ---
This RN CM received message from Noemi at [facility] to see about transfer for pt and this RN CM faxed her updated clinicals and left her a message to advise that pt had last pm. Arlen MURRAY CM
== END 2020-03-03 16:04 | DRG 329 ==
LOC: ED 15:57 → PCU 16:27
PROVIDERS: Internal Medicine; Physician Assistant; Surgery; Admitting Provider Internal Medicine; Emergency Provider Emergency Medicine; Visit Provider Internal Medicine
PROC: 0DTH0ZZ Resection of Cecum, Open Approach (ICD-10-PCS; CPT 49320; principal; 2020-02-27 13:10)
PROC: 0DTH0ZZ Resection of Cecum, Open Approach (ICD-10-PCS; CPT 49000; 2020-02-27 13:10)
DX: C17.2 Malignant neoplasm of ileum (principal); G93.41 Metabolic encephalopathy; J69.0 Pneumonitis due to inhalation of food and vomit; N17.0 Acute kidney failure with tubular necrosis; A41.9 Sepsis, unspecified organism; R65.21 Severe sepsis with septic shock; K56.7 Ileus, unspecified; E87.0 Hyperosmolality and hypernatremia; C78.5 Secondary malignant neoplasm of large intestine and rectum; N18.3 Chronic kidney disease, stage 3 (moderate); E11.22 Type 2 diabetes mellitus with diabetic chronic kidney disease; I12.9 Hypertensive chronic kidney disease with stage 1 through stage 4 chronic kidney disease, or unspecified chronic kidney disease; Z79.4 Long term (current) use of insulin; E87.5 Hyperkalemia; E03.9 Hypothyroidism, unspecified; F03.90 Unspecified dementia, unspecified severity, without behavioral disturbance, psychotic disturbance, mood disturbance, and anxiety; Z53.31 Laparoscopic surgical procedure converted to open procedure; Z66 Do not resuscitate; Z51.5 Encounter for palliative care; Z87.891 Personal history of nicotine dependence
CPT/HCPCS: 36415; 36600; 70450; 71045; 71046; 74018; 74176; 74177; 74250; 80048; 80053; 81001; 82378; 82570; 82803; 82962; 83690; 83735; 83880; 84100; 84295; 84300; 84484; 85025; 86301; 87040; 87086; 87186; 87633; 88307; 88331; 88341; 88342; 93005; 94762; 97110; 97116; 97162; 97165; 97530; 97535; 97802; 99251; 99284; J7030; J7120; Q9967; A4216; G0463; J1940; J2405